=== PATIENT | female | born 1990 | race Caucasian/White ===

== ENCOUNTER → 2016-05-31 | Outpatient (REF) | payer OTHER | LOC: M LAB REF 11:53 | PROVIDERS: ATTEND Physician Assistant | DX: N89.8 Other specified noninflammatory disorders of vagina (principal) ==

== ENCOUNTER → 2016-09-08 | Outpatient (REF) | payer MEDICAID ==
[2016-09-09 11:52] LABS: FOLATE 9.5 NG/ML (>5.4); VITAMIN B12 LEVEL 380 PG/ML (247-911)
[2016-09-09 11:55] LABS: DIFF SLIDE NUMBER 314; MEAN CORPUSCULAR HEMOGLOBIN 27.6 pg (27.0-33.0); MEAN CORPUSCULAR HGB CONC 32.7 g/dl (32.0-36.5); MEAN CORPUSCULAR VOLUME 84.3 fl (80.0-96.0); PLATELET COUNT, AUTOMATED 238 k/mm3 (150-450); RED CELL DISTRIBUTION WIDTH 13.1 % (11.5-14.5); WHITE BLOOD COUNT 7.8 K/mm3 (4.0-10.0)
[2016-09-09 11:57] LABS: ALBUMIN 3.8 GM/DL (3.2-5.2); ALBUMIN/GLOBULIN RATIO 1.36 (1.00-1.93); ALKALINE PHOSPHATASE 64 U/L (45-117); ALT/SGPT 28 U/L (12-78); ANION GAP 6 MEQ/L (8-16); AST/SGOT 24 U/L (15-37); BILIRUBIN,TOTAL 0.3 MG/DL (0.2-1.0); BLOOD UREA NITROGEN 13 MG/DL (7-18); CALCIUM LEVEL 8.7 MG/DL (8.5-10.1); CARBON DIOXIDE LEVEL 28 MEQ/L (21-32); CHLORIDE LEVEL 108 MEQ/L (98-107); CHOLESTEROL LEVEL 178 MG/DL (<200); CREATININE FOR GFR 0.73 MG/DL (0.55-1.02); GLOMERULAR FILTRATION RATE > 60.0 (>60); GLUCOSE, FASTING 90 MG/DL (70-105); POTASSIUM SERUM 4.6 MEQ/L (3.5-5.1); SODIUM LEVEL 142 MEQ/L (136-145); TOTAL PROTEIN 6.6 GM/DL (6.4-8.2); TRIGLYCERIDES LEVEL 115 MG/DL (<150)
[2016-09-09 12:23] LABS: BASOPHILS 2 % (0-4); EOSINOPHILS 2 % (0-5)
== END ==
LOC: M SFHCCLAY 14:36
PROVIDERS: ATTEND Family Medicine
DX: Z98.84 Bariatric surgery status (principal); E78.2 Mixed hyperlipidemia; E55.9 Vitamin D deficiency, unspecified

== ENCOUNTER → 2016-10-20 | Outpatient (REF) | payer MEDICAID ==
[2016-10-20 18:37] LABS: MEAN CORPUSCULAR HEMOGLOBIN 27.8 pg (27.0-33.0); MEAN CORPUSCULAR HGB CONC 32.7 g/dl (32.0-36.5); MEAN CORPUSCULAR VOLUME 85.1 fl (80.0-96.0); RED CELL DISTRIBUTION WIDTH 13.1 % (11.5-14.5); WHITE BLOOD COUNT 8.2 K/mm3 (4.0-10.0)
[2016-10-20 19:23] LABS: FOLATE > 24.0 NG/ML (>5.4); VITAMIN B12 LEVEL 301 PG/ML (247-911)
[2016-10-20 19:31] LABS: CALCIUM LEVEL 8.8 MG/DL (8.5-10.1); HCG, SERUM QUANTITATIVE 6336 MIU/ML
== END ==
LOC: M LAB REF 16:47
PROVIDERS: ATTEND Advanced Practice Midwife
DX: O36.80X0 Pregnancy with inconclusive fetal viability, not applicable or unspecified (principal); O99.840 Bariatric surgery status complicating pregnancy, unspecified trimester; Z3A.00 Weeks of gestation of pregnancy not specified

== ENCOUNTER → 2017-03-30 | Outpatient (CLI) | payer MEDICAID ==
[2017-03-30 12:37] LABS: MEAN CORPUSCULAR HEMOGLOBIN 28.7 pg (27.0-33.0); MEAN CORPUSCULAR HGB CONC 33.1 g/dl (32.0-36.5); MEAN CORPUSCULAR VOLUME 86.6 fl (80.0-96.0); PLATELET COUNT, AUTOMATED 271 10^3/uL (150-450); RED CELL DISTRIBUTION WIDTH 13.1 % (11.5-14.5); WHITE BLOOD COUNT 10.3 10^3/uL (4.0-10.0)
== END ==
LOC: M LAB 10:57
PROVIDERS: ATTEND Advanced Practice Midwife
DX: Z34.82 Encounter for supervision of other normal pregnancy, second trimester (principal)

== ENCOUNTER → 2017-04-18 | Outpatient (REF) | payer MEDICAID ==
[2017-04-18 14:08] LABS: FOLATE 16.9 NG/ML
[2017-04-18 14:22] LABS: CALCIUM LEVEL 8.6 MG/DL (8.5-10.1)
== END ==
LOC: M LAB REF 13:18
PROVIDERS: ATTEND Advanced Practice Midwife
DX: O99.843 Bariatric surgery status complicating pregnancy, third trimester (principal); Z3A.00 Weeks of gestation of pregnancy not specified

== ENCOUNTER → 2017-05-16 | Outpatient (REF) | payer MEDICAID | LOC: M LAB REF 13:17 | DX: Z34.83 Encounter for supervision of other normal pregnancy, third trimester (principal) ==

== ENCOUNTER → 2017-06-06 | Outpatient (REF) | payer MEDICAID | LOC: M LAB REF 13:24 | DX: R30.0 Dysuria (principal) ==

== ENCOUNTER 2017-06-19 21:45 | Inpatient (IN) | payer MEDICAID ==
[2017-06-19 22:34] LABS: HEMATOCRIT 33.1 % (36.0-47.0); MEAN CORPUSCULAR HEMOGLOBIN 28.1 pg (27.0-33.0); MEAN CORPUSCULAR HGB CONC 33.2 g/dl (32.0-36.5); MEAN CORPUSCULAR VOLUME 84.7 fl (80.0-96.0); PLATELET COUNT, AUTOMATED 233 10^3/uL (150-450); RED BLOOD COUNT 3.91 10^6/uL (4.00-5.40); RED CELL DISTRIBUTION WIDTH 13.5 % (11.5-14.5); WHITE BLOOD COUNT 10.9 10^3/uL (4.0-10.0)
[2017-06-19 22:55] LABS: ALT/SGPT 13 U/L (12-78); AST/SGOT 18 U/L (7-37); BILIRUBIN,TOTAL 0.2 MG/DL (0.2-1.0); CREATININE FOR GFR 0.56 MG/DL (0.55-1.30); GLOMERULAR FILTRATION RATE > 60.0 (>60); LDH LACTATE DEHYDROGENASE 170 U/L (84-246); URIC ACID 4.5 MG/DL (2.6-6.0)
[2017-06-19 23:00] LABS: AMPHETAMINES URINE REFLEX NEGATIVE (NEGATIVE); BARBITURATES URINE REFLEX NEGATIVE (NEGATIVE); BENZODIAZEPINES URINE REFLEX NEGATIVE (NEGATIVE); CANNABINOIDS URINE REFLEX NEGATIVE (NEGATIVE); COCAINE METABOLITE URINE REFLE NEGATIVE (NEGATIVE); METHADONE URINE REFLEX NEGATIVE (NEGATIVE); OPIATES URINE REFLEX NEGATIVE (NEGATIVE); PHENCYCLIDINE URINE REFLEX NEGATIVE (NEGATIVE)
[2017-06-19] MEDS: OXYTOCIN DRIP 30 UNITS in APPROPRIATE DILUENT 1 EA IV (23:24)
[2017-06-19] MEDS: LR 1,000 ML IV (23:24)
[2017-06-20] MEDS ORDERED: FENTANYL 2MCG/ML ROPIVACAINE 0.2% IN 0.9% NACL 200ML IVBAG As Ordered (05:47)
[2017-06-20] MEDS ORDERED: LACTATED RINGER'S 1000 ML IV (07:00)
[2017-06-20] MEDS ORDERED: NALOXONE INJ 0.4 MG/1 ML VIAL (J2310) IV (07:00)
[2017-06-20] MEDS ORDERED: EPIDURAL/PCA KEYS XX (07:00)
[2017-06-20] MEDS ORDERED: diphenhydrAMINE INJ 50MG/ML VIAL (J1200) IV (07:00)
[2017-06-20] MEDS ORDERED: ePHEDrine SULFATE 25 MG/5 ML(5MG/ML) SYRINGE IV (07:00)
[2017-06-20] MEDS ORDERED: REFRIGERATOR IV KEYS XX (07:00)
[2017-06-20] MEDS ORDERED: FENTANYL/ROPIVACAINE/NACL BAG 200 ML EPIDURAL (07:00)
[2017-06-20] MEDS ORDERED: EPIDURAL COMMENT XX (07:00)
[2017-06-20] MEDS ORDERED: ONDANSETRON 4MG/2ML VIAL (J2405) IV (07:00)
[2017-06-20] MEDS: PRENATAL VITAMINS CHEWABLE TABLET PO (09:00)
[2017-06-20] MEDS: LACTATED RINGER'S 1000 ML IV (10:58)
[2017-06-20] MEDS: LR 1,000 ML IV (10:59)
[2017-06-20] MEDS: OXYTOCIN DRIP 30 UNITS in APPROPRIATE DILUENT 1 EA IV (14:22)
[2017-06-20] MEDS ORDERED: ANUSOL HC CREAM 30GM TOP (14:30)
[2017-06-20] MEDS ORDERED: METHYLERGONOVINE MALEATE 0.2 MG TAB PO (14:30)
[2017-06-20] MEDS ORDERED: DIBUCAINE 1% OINTMENT 30GM TOP (14:30)
[2017-06-20] MEDS ORDERED: DOCUSATE SODIUM 100 MG CAP PO (14:30)
[2017-06-20] MEDS: ACETAMINOPHEN 500 MG TAB PO (16:37)
[2017-06-20] MEDS: METHYLERGONOVINE MALEATE 0.2 MG/ML VIAL (J2210) IM (18:01)
[2017-06-20] MEDS: OXYTOCIN INJ 10 UNITS/ML VIAL (J2590) IM (18:02)
[2017-06-20] MEDS: MEASLES,MUMPS,RUBELLA VACCINE INJ (MMR-II) (90707) SC (18:03)
[2017-06-20] MEDS: RHOGAM 300 MCG (1500 IU) INJ (J2790) IM (18:03)
[2017-06-20] MEDS: IBUPROFEN 800 MG TAB PO (20:59)
[2017-06-21] MEDS: ACETAMINOPHEN 500 MG TAB PO ×2 (05:37→14:14)
[2017-06-21] MEDS: PRENATAL VITAMINS CHEWABLE TABLET PO (09:00)
[2017-06-21] MEDS: IBUPROFEN 800 MG TAB PO (09:54)
[2017-06-22] MEDS: IBUPROFEN 800 MG TAB PO (04:47)
[2017-06-22] MEDS: PRENATAL VITAMINS CHEWABLE TABLET PO (08:16)
== END 2017-06-22 15:29 | disposition home or self-care (01) | DRG 560 ==
LOC: M LDI 21:45 → M OBS 06-20 15:54
PROVIDERS: Advanced Practice Midwife
PROC: 3E033VJ Introduction of Other Hormone into Peripheral Vein, Percutaneous Approach (ICD-10-PCS; principal; 2017-06-19)
PROC: 10907ZC Drainage of Amniotic Fluid, Therapeutic from Products of Conception, Via Natural or Artificial Opening (ICD-10-PCS; 2017-06-20)
PROC: 10E0XZZ Delivery of Products of Conception, External Approach (ICD-10-PCS; 2017-06-20)
PROC: 0HQ9XZZ Repair Perineum Skin, External Approach (ICD-10-PCS; 2017-06-20)
DX: O48.0 Post-term pregnancy (principal); J45.909 Unspecified asthma, uncomplicated; Z37.0 Single live birth; Z3A.40 40 weeks gestation of pregnancy; Z98.84 Bariatric surgery status; Z79.899 Other long term (current) drug therapy; O70.0 First degree perineal laceration during delivery; O99.52 Diseases of the respiratory system complicating childbirth

== ENCOUNTER 2018-05-24 07:43 | Emergency (ER) | payer MEDICAID ==
[~2018-05-24] VITALS: Ht 180.3 cm; Wt 118.2 kg
[~2018-05-24 07:43] MED LIST: ADVA115A INH; IBUP-1114 PO; PRENTAB55 PO; PROAAER10 INH
[2018-05-24 08:11] LABS: BASO % 0.1 % (0.0-1.0); HEMATOCRIT 42.7 % (36.0-47.0); HEMOGLOBIN 13.7 g/dl (12.0-15.5); LYMPH # 1.4 10^3/uL (1.5-6.5); LYMPH % 9.3 % (24.0-44.0); MEAN CORPUSCULAR HEMOGLOBIN 26.4 pg (27.0-33.0); MEAN CORPUSCULAR HGB CONC 32.1 g/dl (32.0-36.5); MEAN CORPUSCULAR VOLUME 82.3 fl (80.0-96.0); MONO # 0.5 10^3/uL (0.0-0.8); MONO % 3.3 % (0.0-5.0); NEUTROPHILS # 12.8 10^3/uL (1.8-7.7); NEUTROPHILS % 86.9 % (36.0-66.0); PLATELET COUNT, AUTOMATED 398 10^3/uL (150-450); RED BLOOD COUNT 5.19 10^6/uL (4.00-5.40); WHITE BLOOD COUNT 14.8 10^3/uL (4.0-10.0)
[2018-05-24 08:44] LABS: ALBUMIN 4.4 GM/DL (3.2-5.2); ALT/SGPT 63 U/L (12-78); BILIRUBIN,DIRECT < 0.1 MG/DL (0.0-0.2); BILIRUBIN,TOTAL 0.4 MG/DL (0.2-1.0); BLOOD UREA NITROGEN 14 MG/DL (7-18); CALCIUM LEVEL 9.1 MG/DL (8.5-10.1); CARBON DIOXIDE LEVEL 23 MEQ/L (21-32); CHLORIDE LEVEL 102 MEQ/L (98-107); CREATININE FOR GFR 0.77 MG/DL (0.55-1.30); GLOMERULAR FILTRATION RATE > 60.0 (>60); GLUCOSE, FASTING 148 MG/DL (70-100); LIPASE 125 U/L (73-393); POTASSIUM SERUM 4.6 MEQ/L (3.5-5.1); SODIUM LEVEL 137 MEQ/L (136-145); TOTAL PROTEIN 7.9 GM/DL (6.4-8.2)
[2018-05-24 08:45] LABS: HCG, SERUM QUALITATIVE NEGATIVE (NEGATIVE)
--- NOTE | 2018-05-24 09:10 | REP ---
GALLBLADDER ULTRASOUND: HISTORY: Right upper quadrant pain. COMPARISON: 03/22/2008. Multiple calcifications are present in the gallbladder consistent with cholelithiasis. Gravel is also present. The gallbladder is distended consistent with hydrops. The gallbladder wall is thickened measuring 5.2 mm. The common bile duct measures 3.8 mm. There is fatty infiltration of the liver. The pancreas is not seen due to overlying bowel gas. The right kidney measures 5.7 cm in transverse by 4.7 cm in AP by 12.4 cm in cephalocaudal dimensions. There is no hydronephrosis or mass. IMPRESSION: 1. Cholelithiasis. There is hydrops and thickening of the gallbladder wall. 2. Fatty infiltration of the liver. Electronically Signed by Pankaj Blanco MD 05/24/2018 09:22 A
[2018-05-24] MEDS ORDERED: MORPHINE 2 MG/ML 1ML SYRINGE (J2270) IV ONE (09:30)
[2018-05-24] MEDS ORDERED: NS 1,000 ML IV ONE (09:30)
[2018-05-24] MEDS ORDERED: NORCO, ANEXSIA 5/325MG TABLET (HYDROcodone/ACETAMINOPHEN) PO ONE (11:00)
[2018-05-24] MEDS ORDERED: AMOX875T2 PO (11:44)
[2018-05-24] MEDS ORDERED: NORCOTAB PO (11:44)
[2018-05-24] MEDS ORDERED: ONDA4TAB6 PO (11:44)
[2018-05-24 12:11] VITALS: BP 137/63
== END 2018-05-24 12:04 | disposition home or self-care (01) ==
LOC: M ED 07:43
DX: K80.70 Calculus of gallbladder and bile duct without cholecystitis without obstruction (principal); I10 Essential (primary) hypertension; E78.5 Hyperlipidemia, unspecified; Z98.84 Bariatric surgery status
CPT/HCPCS: 76705; 80048; 80076; 81001; 83690; 84703; 85025; 87086; 96361; 96374; 99283; J2270

== ENCOUNTER 2018-05-26 12:31 | Day surgery (SDC) | payer MEDICAID ==
[~2018-05-26] VITALS: Ht 180.3 cm; Wt 115.4 kg
[~2018-05-26 12:31] MED LIST changes: +AMOX875T2 PO; +NORCOTAB PO; +ONDA4TAB6 PO
[2018-05-26] MEDS ORDERED: NS 1,000 ML IV SCH (12:49)
[2018-05-26] MEDS ORDERED: KETOROLAC 30 MG/ML VIAL (J1885) IV ONE (13:00)
[2018-05-26] MEDS ORDERED: ONDANSETRON 4MG/2ML VIAL (J2405) IV ONE (13:00)
[2018-05-26 13:18] LABS: BASO % 0.3 % (0.0-1.0); EOS # 0.2 10^3/uL (0.0-0.50); EOS % 1.1 % (0.0-3.0); HEMATOCRIT 41.3 % (36.0-47.0); HEMOGLOBIN 13.3 g/dl (12.0-15.5); LYMPH # 1.7 10^3/uL (1.5-6.5); LYMPH % 12.8 % (24.0-44.0); MEAN CORPUSCULAR HEMOGLOBIN 26.5 pg (27.0-33.0); MEAN CORPUSCULAR HGB CONC 32.2 g/dl (32.0-36.5); MEAN CORPUSCULAR VOLUME 82.3 fl (80.0-96.0); MONO # 1.3 10^3/uL (0.0-0.8); MONO % 9.9 % (0.0-5.0); NEUTROPHILS # 10.1 10^3/uL (1.8-7.7); NEUTROPHILS % 75.5 % (36.0-66.0); PLATELET COUNT, AUTOMATED 304 10^3/uL (150-450); RED BLOOD COUNT 5.02 10^6/uL (4.00-5.40); WHITE BLOOD COUNT 13.3 10^3/uL (4.0-10.0)
[2018-05-26 13:43] LABS: ALBUMIN 3.8 GM/DL (3.2-5.2); ALT/SGPT 33 U/L (12-78); BILIRUBIN,DIRECT 0.1 MG/DL (0.0-0.2); BILIRUBIN,TOTAL 0.4 MG/DL (0.2-1.0); BLOOD UREA NITROGEN 7 MG/DL (7-18); CALCIUM LEVEL 8.9 MG/DL (8.5-10.1); CARBON DIOXIDE LEVEL 26 MEQ/L (21-32); CHLORIDE LEVEL 102 MEQ/L (98-107); GLOMERULAR FILTRATION RATE > 60.0 (>60); GLUCOSE, FASTING 105 MG/DL (70-100); LIPASE 109 U/L (73-393); POTASSIUM SERUM 4.2 MEQ/L (3.5-5.1); SODIUM LEVEL 138 MEQ/L (136-145); TOTAL PROTEIN 7.1 GM/DL (6.4-8.2)
[2018-05-26] MEDS ORDERED: MORPHINE 4 MG/ML 1ML VIAL/SYRINGE (J2270) IV PRN ×3 (13:45→16:00)
[2018-05-26] MEDS ORDERED: ONDA4TAB6 PO (15:24)
[2018-05-26] MEDS ORDERED: AMOX875T2 PO (15:24)
[2018-05-26] MEDS ORDERED: NORC1TAB4 PO (15:24)
[2018-05-26] MEDS ORDERED: ONDANSETRON 4MG/2ML VIAL (J2405) IV PRN ×2 (16:00→19:00)
[2018-05-26] MEDS ORDERED: BUPIVACAINE HCL 0.25% 30 ML VIAL As Ordered ONE (16:13)
[2018-05-26] MEDS ORDERED: PIPERACILLIN/TAZOBACTAM SOD 3.375 GM in D5W MINI-BAG PLUS 50 ML IV ONE (16:15)
[2018-05-26] MEDS ORDERED: LIDOCAINE 2% INJ 100 MG/5 ML SDV (FOR ANES.) As Ordered ONE (16:30)
[2018-05-26] MEDS ORDERED: PROPOFOL 200 MG/20 ML VIAL As Ordered ONE (16:30)
[2018-05-26] MEDS ORDERED: ROCURONIUM BROMIDE 50 MG/5 ML VIAL As Ordered ONE ×2 (16:32→18:05)
[2018-05-26] MEDS ORDERED: fentaNYL 250 MCG/5 ML INJECTION (J3010) As Ordered ONE (16:33)
[2018-05-26] MEDS ORDERED: MIDAZOLAM INJ 2 MG/2 ML VIAL (J2250) As Ordered ONE (16:33)
[2018-05-26] MEDS ORDERED: dexameTHASONE 4 MG/ML 1ML VIAL (J1100) As Ordered ONE (17:00)
[2018-05-26] MEDS ORDERED: SUCCINYLCHOLINE 100 MG/5 ML SYRINGE (J0330) As Ordered ONE (17:01)
[2018-05-26] MEDS ORDERED: HYDROmorphone HCL 2 MG/ML 1ML VIAL (J1170) As Ordered ONE (17:26)
[2018-05-26] MEDS ORDERED: ESMOLOL INJ 100MG/10ML VIAL As Ordered ONE (17:48)
[2018-05-26] MEDS ORDERED: GLYCOPYRROLATE INJ 0.2 MG/ML 2 ML VIAL As Ordered ONE (17:53)
[2018-05-26] MEDS ORDERED: NEOSTIGMINE 10 MG/10 ML VIAL (J2710) As Ordered ONE (17:53)
[2018-05-26] MEDS ORDERED: KETOROLAC 60 MG/2 ML VIAL (J1885) As Ordered ONE (18:11)
[2018-05-26] MEDS ORDERED: ONDANSETRON 4MG/2ML VIAL (J2405) As Ordered ONE (18:11)
[2018-05-26] MEDS ORDERED: NORCO, ANEXSIA 5/325MG TABLET (HYDROcodone/ACETAMINOPHEN) PO PRN ×2 (19:00→19:15)
[2018-05-26] MEDS ORDERED: LR 1,000 ML IV SCH (19:00)
[2018-05-26] MEDS ORDERED: ALBUTEROL 90 MCG/ACT 8GM HFA INHALER INH PRN (19:15)
[2018-05-26] MEDS ORDERED: ACETAMINOPHEN TAB 650MG DOSE (2X325MG) PO PRN (19:15)
[2018-05-26] MEDS: fentaNYL 100 MCG/2 ML INJECTION (J3010) IV PRN ×2 (19:52→20:00)
[2018-05-26] MEDS: LR 1,000 ML IV SCH (20:25)
[2018-05-26 20:30] VITALS: BP 106/52
[2018-05-26 21:00] VITALS: BP 109/58
[2018-05-26 21:30] VITALS: BP 103/56
[2018-05-26 22:30] VITALS: BP 102/54
[2018-05-26 23:30] VITALS: BP 112/57
[2018-05-27 00:30] VITALS: BP 115/62
[2018-05-27] MEDS: ADVAIR HFA 115/21MCG INHALER INH SCH ×2 (00:38→07:15)
[2018-05-27] MEDS: LR 1,000 ML IV SCH (01:00)
[2018-05-27] MEDS: KETOROLAC 30 MG/ML VIAL (J1885) IV PRN ×2 (03:48→11:41)
[2018-05-27 04:00] VITALS: BP 117/56
--- NOTE | 2018-05-27 07:05 | RO ---
DATE OF PROCEDURE: 05/26/2018 PREOPERATIVE DIAGNOSES: Cholelithiasis and acute cholecystitis. POSTOPERATIVE DIAGNOSES: Cholelithiasis and acute cholecystitis. PROCEDURE PERFORMED: Laparoscopic cholecystectomy. SURGEON: Dr. Niall Givens ANESTHESIA: General. INDICATIONS FOR PROCEDURE: The patient is a 27-year-old woman who has had several months of intermittent episodes of biliary colic. She developed pain on May 23 which has persisted. In the emergency department on the , she was found to have tenderness in the right subcostal area and an ultrasound showed a markedly distended and thickened gallbladder consistent with acute cholecystitis. She is now for a laparoscopic cholecystectomy. OPERATIVE PROCEDURE: The patient was placed under general endotracheal anesthesia. The patient's abdomen was prepped and draped in a sterile fashion. 0.25% Marcaine was infiltrated at the trocar sites as needed. A short incision was made in the left upper quadrant and after positive hanging drop test, insufflation was begun but the pressures rapidly qamar and the Veress needle was removed. I attempted to reinsert this but again had high insufflation pressures. I changed to a supraumbilical site. Local anesthesia was achieved and a short longitudinal incision was made. The Veress needle was inserted without difficulty and a positive hanging drop test was achieved. The abdomen was insufflated with carbon dioxide gas with low insufflation pressures this time. A 5-mm port was placed over a 5 mm scope and advanced through the abdominal wall without difficulty. Initial examination showed a normal-appearing liver. There was a markedly distended, inflamed and edematous gallbladder identified in the subhepatic space. Inspection in the left upper quadrant showed no evidence of injury from the Veress needle insertion and I could not even confirm that there was penetration of the peritoneum. A 5 mm port was placed through this left upper quadrant skin incision. Two 5 mm ports were placed in the right upper quadrant. The 5 mm supraumbilical port was converted to an 11 mm port. The patient was tilted to a slight reverse Trendelenburg position and rolled slightly to the left. The gallbladder was aspirated of a large amount of dark bile using an aspirating needle. The gallbladder decompressed nicely but the wall was still quite thickened and edematous. The gallbladder was grasped and elevated. There were some adhesions at the neck of the gallbladder that appeared to extend to the duodenum. These were likely secondary to her prior gastric bypass procedure. These adhesions were lysed cautiously to avoid any injury of the duodenum. As the gallbladder was freed, it could be further elevated. The peritoneum was then opened around the gallbladder neck. Two branches were identified and these were both clearly dissected free and doubly clipped with hemoclips and divided. The cystic duct was then clearly identified as well and was doubly clipped with hemoclips and divided. The gallbladder was then dissected free from the gallbladder bed using cautery dissection. This was a slow process given the marked edema of the gallbladder wall. Near the fundus, the gallbladder was perforated but as it had been drained, there was little to no spillage of any bile. A few small angular stones were identified but these were not released into the abdomen. The gallbladder was completely removed from the gallbladder bed and then placed in the Endopouch. The right upper quadrant was then copiously irrigated. Inspection revealed no evidence of bleeding or bile leak. The patient was returned to a flat position. The abdomen was deflated and the trocars were all removed. The gallbladder was recovered through the supraumbilical site. Because of the thickness of the gallbladder, it was necessary to extend the fascial incision and the skin incision to approximately 3 cm. The gallbladder was sent for permanent pathology. The fascia was closed with interrupted simple sutures of #1-0 Vicryl. The subcutaneous tissues at the supraumbilical site were closed with some #2-0 Vicryl and the skin incisions were then all closed with buried #5-0 Vicryl and Steri-Strips. Light dressings were applied. The patient tolerated the procedure well without apparent complication. She was awakened in the operating room, extubated and moved to the recovery room in stable condition.
[2018-05-27 07:58] VITALS: BP 128/64
[2018-05-27 08:08] LABS: BASO % 0.2 % (0.0-1.0); EOS % 0.2 % (0.0-3.0); HEMATOCRIT 36.9 % (36.0-47.0); HEMOGLOBIN 11.7 g/dl (12.0-15.5); LYMPH # 1.6 10^3/uL (1.5-6.5); LYMPH % 14.1 % (24.0-44.0); MEAN CORPUSCULAR HEMOGLOBIN 26.2 pg (27.0-33.0); MEAN CORPUSCULAR HGB CONC 31.7 g/dl (32.0-36.5); MEAN CORPUSCULAR VOLUME 82.6 fl (80.0-96.0); MONO # 0.9 10^3/uL (0.0-0.8); MONO % 7.8 % (0.0-5.0); NEUTROPHILS % 77.4 % (36.0-66.0); PLATELET COUNT, AUTOMATED 337 10^3/uL (150-450); RED BLOOD COUNT 4.47 10^6/uL (4.00-5.40); WHITE BLOOD COUNT 11.6 10^3/uL (4.0-10.0)
[2018-05-27 08:41] LABS: ALBUMIN 3.2 GM/DL (3.2-5.2); ALT/SGPT 45 U/L (12-78); BILIRUBIN,TOTAL 0.3 MG/DL (0.2-1.0); BLOOD UREA NITROGEN 10 MG/DL (7-18); CALCIUM LEVEL 8.4 MG/DL (8.5-10.1); CARBON DIOXIDE LEVEL 25 MEQ/L (21-32); CHLORIDE LEVEL 105 MEQ/L (98-107); CREATININE FOR GFR 0.64 MG/DL (0.55-1.30); GLOMERULAR FILTRATION RATE > 60.0 (>60); GLUCOSE, FASTING 104 MG/DL (70-100); POTASSIUM SERUM 4.3 MEQ/L (3.5-5.1); SODIUM LEVEL 138 MEQ/L (136-145); TOTAL PROTEIN 6.5 GM/DL (6.4-8.2)
[2018-05-27] MEDS ORDERED: NORCOTAB PO (12:14)
--- NOTE | 2018-05-27 12:29 | IPN ---
DATE: 05/27/2018 HISTORY: The patient is now postop day #1 from a laparoscopic cholecystectomy for cholelithiasis with acute cholecystitis. She has done well overnight since her surgery. She has been tolerating a diet well, has had a bowel movement and has been up ambulating. Vital signs: Show that she has been afebrile with a pulse in the 60s and 70s and good blood pressure. Intake and output shows that she has had 400 mL of urine recorded today, though she has several voids and two bowel movements noted as well. She is taking a diet well. PHYSICAL EXAMINATION: The patient is sitting up in the bed looking mildly uncomfortable. She is alert and oriented. Heart and lung exams are unremarkable. The abdomen is mildly obese but soft and without any undue tenderness. Her dressings are dry. Laboratory studies this morning show white count of 12 which is down slightly from yesterday. Hemoglobin is 12 with a hematocrit of 37 and the platelet count is 337,000. Chemistry profile shows normal electrolytes, BUN and creatinine. Her liver function tests are all normal. IMPRESSION: The patient is doing very well now one day postop from laparoscopic cholecystectomy for acute cholecystitis. She appears to be ready for discharge. PLAN: She will be discharged home. She was advised to take [id number] medications as necessary for mild pain. I will provide her a prescription for Sidney to take on an as-needed basis for more severe discomfort. She can take a diet as tolerated. She can start showering 24 hours after the surgery. She has requested a note to be out of class this week if necessary and I will provide this. I have asked her to follow up with me in the office in 10 days or to call sooner for any problems.
--- NOTE | 2018-05-28 07:39 | REP ---
Clinical: Acute abdominal pain and biliary colic. Comparison: 05/24/2018. Technique: Martin scale ultrasound using curved array transducer. Findings: The gallbladder is again distended and demonstrates gallbladder wall thickening with mild striation and small amount of pericholecystic fluid as well as multiple small gallstones. The common bile duct is dilated to 8.2 mm. Findings are compatible with acute cholecystitis and require correlation. Liver demonstrates increased echogenicity suggesting fatty infiltration without focal hepatic lesion identified. Visualized portions of the pancreas are unremarkable but limited due to interposed bowel gas. The right kidney is without hydronephrosis and measures 12.5 x 5.6 x 4.3 cm. No obvious ascites in the right upper quadrant. Impression: Sonographic findings are consistent with acute cholecystitis and correlation is recommended. Electronically Signed by Armando Yip MD 05/26/2018 02:25 P
== END 2018-05-27 13:10 | disposition home or self-care (01) ==
LOC: M ED 12:31 → M SDC 15:58 → M PED 20:25 → M SDC 05-27 13:10
PROVIDERS: ATTEND Surgery
DX: K80.18 Calculus of gallbladder with other cholecystitis without obstruction (principal); J45.909 Unspecified asthma, uncomplicated; Z79.51 Long term (current) use of inhaled steroids; Z98.84 Bariatric surgery status; Z79.899 Other long term (current) drug therapy
CPT/HCPCS: 36415; 47562; 76705; 80048; 80053; 80076; 83690; 85025; 88304; 94640; 96374; 96375; 96376; 99284; J0330; J1100; J1170; J1885; J2250; J2270; J2405; J2543; J2710; J3010

== ENCOUNTER 2018-08-20 11:24 | Emergency (ER) | payer MEDICAID, OTHER ==
[~2018-08-20] VITALS: Ht 180.3 cm; Wt 118.2 kg
[~2018-08-20 11:24] MED LIST changes: +HYDR-3715 PO; +NORC1TAB7 PO; -NORCOTAB PO
[2018-08-20 11:25] VITALS: BP 126/71
[2018-08-20] MEDS ORDERED: BAYE500T2 PO (11:31)
[2018-08-20] MEDS ORDERED: KETOROLAC 60 MG/2 ML VIAL (J1885) IM ONE (12:30)
[2018-08-20] MEDS ORDERED: ACETAMINOPHEN 325 MG TAB PO ONE (12:30)
[2018-08-20] MEDS ORDERED: ROBA500T PO (12:32)
[2018-08-21] MEDS ORDERED: MEDR4PAK PO (09:17)
[2018-08-21] MEDS ORDERED: ULTR50TA8 PO (09:17)
== END 2018-08-20 12:41 | disposition home or self-care (01) ==
LOC: M ED 11:24
DX: M54.5 Low back pain (principal); J45.909 Unspecified asthma, uncomplicated; Z98.84 Bariatric surgery status
CPT/HCPCS: 96372; 99283; J1885

== ENCOUNTER 2018-08-21 07:28 | Emergency (ER) | payer OTHER ==
[~2018-08-21] VITALS: Ht 180.3 cm; Wt 118.2 kg
[~2018-08-21 07:28] MED LIST changes: +BAYE500T2 PO; +ROBA500T PO
[2018-08-21] MEDS ORDERED: KETOROLAC 30 MG/ML VIAL (J1885) IV ONE (08:15)
[2018-08-21] MEDS ORDERED: ULTR50TA8 PO (09:17)
[2018-08-21] MEDS ORDERED: MEDR4PAK PO (09:17)
[2018-08-21 09:24] VITALS: BP 115/63
--- NOTE | 2018-08-21 09:26 | REP ---
CT LUMBAR SPINE WITHOUT CONTRAST: HISTORY: Back pain. There is no disc bulge or herniation at the L1-2 and L2-3 levels. The nerves exit the neural foramina without compression. A diffuse disc bulge is present at the L3-4 level. There is minimal compression of the thecal sac. The L3 nerves exit the neural foramina without compression. A diffuse disc bugle and small central disc protrusion are present at the L4-5 level. There is minimal compression of the thecal sac. The L4 nerves exit the neural foramina without compression. A diffuse disc bulge and small left paracentral disc protrusion are present at the L5-S1 level. The disc protrusion abuts the left S1 nerve. There is no thecal sac compression. The L5 nerves exit the neural foramina without compression. The L3-4 through L5-S1 intervertebral discs are decreased in height consistent with disc degeneration. There is no subluxation. IMPRESSION: 1. Diffuse disc bugle at the L3-4 level with minimal thecal sac compression. 2. Diffuse disc bulge and small central disc protrusion at the L4-5 level with minimal thecal sac compression. 3. Diffuse disc bugle and small left paracentral disc protrusion at the L5-S1 level. The disc protrusion abuts the left S1 nerve. Electronically Signed by Pankaj Blanco MD 08/21/2018 09:34 A
--- NOTE | 2018-08-21 11:50 | ED PDOC ---
Post-Departure Follow-Up ling coe faxed formal report of ct ls spine fo rfu mlg Jaclyn Simon MD Aug 21, 2018 11:50
== END 2018-08-21 09:25 | disposition home or self-care (01) ==
LOC: M ED 07:28
DX: M51.26 Other intervertebral disc displacement, lumbar region (principal); M51.36 Other intervertebral disc degeneration, lumbar region; Z98.84 Bariatric surgery status; Z79.3 Long term (current) use of hormonal contraceptives
CPT/HCPCS: 72131; 96374; 99284; J1885

== ENCOUNTER → 2018-12-13 | Outpatient (REF) | payer OTHER ==
[~2018-12-13] MED LIST changes: +ADVA115A; +DEPO150I12 IM; +MEDR4PAK PO; +TRAM50TA2; +ULTR50TA8 PO
[2018-12-14 08:24] LABS: HERPES ZOSTER, VARICELLA IgG 1183 index (Immune >165); MUMPS VIRUS IgG ANTIBODY <9.0 AU/mL (Immune >10.9); RUBEOLA IgG ANTIBODY 68.8 AU/mL (Immune >29.9)
[2018-12-14 11:36] LABS: RUBELLA IgG QUALITATIVE IMMUNE (IMMUNE)
== END ==
LOC: M SFHCCLAY 08:07
PROVIDERS: ATTEND Family Medicine
DX: Z02.0 Encounter for examination for admission to educational institution (principal)

== ENCOUNTER 2019-01-20 13:00 | Emergency (ER) | payer OTHER ==
[~2019-01-20] VITALS: Ht 180.3 cm; Wt 108.1 kg
[~2019-01-20 13:00] MED LIST changes: -ADVA115A; -DEPO150I12 IM; -TRAM50TA2
[2019-01-20] MEDS ORDERED: ADVA115A (13:05)
[2019-01-20] MEDS ORDERED: TRAM50TA2 (13:05)
[2019-01-20] MEDS ORDERED: DEPO150I12 IM (13:05)
--- NOTE | 2019-01-20 14:13 | REP ---
Right lower extremity Duplex Doppler venous ultrasound: Real time compression and duplex Doppler interrogation of the right lower extremity deep venous system is performed. The right common femoral, superficial femoral and popliteal veins are fully compressible with transducer pressure and demonstrate normal spontaneous and phasic flow, without evidence of deep venous thrombosis. Impression: No evidence of deep venous thrombosis of the right lower extremity femoral popliteal venous system. Electronically Signed by Chun Martin MD 01/20/2019 02:05 P
[2019-01-20 14:45] VITALS: BP 131/79
== END 2019-01-20 14:46 | disposition home or self-care (01) ==
LOC: M ED 13:00
DX: I80.01 Phlebitis and thrombophlebitis of superficial vessels of right lower extremity (principal); M54.16 Radiculopathy, lumbar region; Z98.84 Bariatric surgery status; Z79.51 Long term (current) use of inhaled steroids; Z79.899 Other long term (current) drug therapy

== ENCOUNTER → 2019-06-19 | Outpatient (REF) | payer OTHER ==
[~2019-06-19] MED LIST changes: +ADVA115A; +DEPO150I12 IM; +TRAM50TA2
[2019-06-19 16:39] LABS: HEMATOCRIT 39.9 % (36.0-47.0); HEMOGLOBIN 12.5 g/dl (12.0-15.5); MEAN CORPUSCULAR HEMOGLOBIN 25.9 pg (27.0-33.0); MEAN CORPUSCULAR HGB CONC 31.3 g/dl (32.0-36.5); MEAN CORPUSCULAR VOLUME 82.8 fl (80.0-96.0); PLATELET COUNT, AUTOMATED 305 10^3/uL (150-450); RED BLOOD COUNT 4.82 10^6/uL (4.00-5.40); WHITE BLOOD COUNT 6.8 10^3/uL (4.0-10.0)
[2019-06-19 16:51] LABS: ALBUMIN 4.3 GM/DL (3.2-5.2); ALT/SGPT 15 U/L (12-78); BILIRUBIN,TOTAL 0.4 MG/DL (0.2-1.0); BLOOD UREA NITROGEN 17 MG/DL (7-18); CALCIUM LEVEL 9.1 MG/DL (8.5-10.1); CARBON DIOXIDE LEVEL 27 MEQ/L (21-32); CHLORIDE LEVEL 111 MEQ/L (98-107); CREATININE FOR GFR 0.78 MG/DL (0.55-1.30); GLOMERULAR FILTRATION RATE > 60.0 (>60); GLUCOSE, FASTING 94 MG/DL (70-100); IRON (FE) 103 UG/DL (50-170); PERCENT SATURATION 21.5 % (13.2-45.0); POTASSIUM SERUM 4.3 MEQ/L (3.5-5.1); SODIUM LEVEL 141 MEQ/L (136-145); TOTAL IRON BINDING CAPACITY 478 UG/DL (250-450); TOTAL PROTEIN 7.3 GM/DL (6.4-8.2)
[2019-06-19 16:52] LABS: TOTAL 25(OH) VITAMIN D 24.9 NG/ML (30.0-100.0); VITAMIN B12 LEVEL 394 PG/ML (247-911)
[2019-06-19 21:23] LABS: HEMATOCRIT 39.9 % (36.0-47.0)
== END ==
LOC: M SFHCCLAY 13:06
PROVIDERS: ATTEND Family Medicine
DX: Z98.84 Bariatric surgery status (principal)

== ENCOUNTER → 2019-10-09 | Outpatient (CLI) | payer OTHER ==
--- NOTE | 2019-10-10 00:43 | ECWPNPC ---
PATIENT NAME: NABEEL DELUNA : 1990 GENDER: FEMALE VISIT DATE: 10/09/2019 DISCHARGE DATE: 10/09/19 1017 VISIT LOCKED DATE TIME: PHYSICIAN: CHERISE MUSTAFA RESOURCE: CHERISE MUSTAFA REASON FOR APPOINTMENT 1. LOW BACK HISTORY OF PRESENT ILLNESS GENERAL: 29-YEAR-OLD FEMALE WITH LONG HISTORY OF CHRONIC LOW BACK PAIN. 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 CHIEF AREA OF PAIN IS RIGHT LOW BACK THAT RADIATES INTO RIGHT LEG. DESCRIBES CONSTANT NUMBNESS IN HER RIGHT LEG. HAS BEEN SEEN BY [facility] AND HAS HAD PT IN THE PAST 2 YEARS. PAIN IS AGGRAVATED BY LIFTING, BENDING OR PROLONGED WALKING. PAIN IS RELIEVED SOMEWHAT WITH TRAMADOL, HEAT AND STRETCHING. HAD CT SCAN OF THE LUMBAR SPINE WHICH IS REVIEWED TODAY. SHOWING DISC PATHOLOGY. DISCUSSED TREATMENT PLAN. - - -. FALL RISK SCREENING: SCREENING :NO FALLS REPORTED IN THE LAST YEAR PAIN SCREENING: PATIENT HAS A COMPLAINT OF ACUTE OR CHRONIC PAIN :YES 10/09/19 INTENSITY OF PAIN (SCALE OF 1 TO 10):4 WHAT DOES YOUR PAIN FEEL LIKE:ACHING, INTERMITTENT, SHOOTING PAIN IS INCREASED BY: LIFTING, BENDING OVER, WALKING PAIN IS DECREASED BY: REST, HEAT NURSING NOTE: - - -. PAIN CENTER INTAKE QUESTIONS: DO YOU HAVE A HISTORY OF MRSA? :NO DO YOU TAKE A BLOOD THINNERS? :NO DO YOU HAVE ANY BLEEDING DISORDERS? :NO ANY NEW NUMBNESS OR WEAKNESS IN YOUR LEGS OR ARMS? :YES RIGHT LEG NUMBNESS ANY PACEMAKER,DEFIBRILLATOR, OR DORSAL COLUMN STIMULATOR? :NO DO YOU HAVE ANY RASHES OR OPEN SORES? :NO ARE YOU ALLERGIC TO IV DYE? :NO ARE YOU DIABETIC? :NO ANY NEW PROBLEMS WITH YOUR MEDICATIONS? :NO HAVE YOU RECEIVED A VACCINE IN THE PAST 30 DAYS? :NO DO YOU PLAN TO RECEIVE A VACCINE IN THE NEXT 21 DAYS? :NO DO YOU NEED ANY PRESCRIPTION? :YES TRAMADOL DO YOU TAKE ANY IMMUNOSUPPRESSIVE MEDICATIONS? :NO CURRENT MEDICATIONS TAKING TRAMADOL HCL 50 MG TABLET 1 TABLET NEEDED ORALLY ONCE A DAY TAKING TIZANIDINE HCL 4 MG TABLET 1 TABLET NEEDED ORALLY THREE TIMES A DAY TAKING NAPROXEN 500 MG TABLET 1 TABLET WITH FOOD OR MILK NEEDED ORALLY EVERY 12 HRS TAKING ADVAIR HFA 115-21 MCG/ACT AEROSOL 2 PUFFS INHALATION TWICE A DAY TAKING PROAIR HFA 108 (90 BASE) MCG/ACT AEROSOL SOLUTION 1 PUFF NEEDED INHALATION EVERY 4 HRS NOT-TAKING AMOXICILLIN 875 MG TABLET 1 TABLET ORALLY EVERY 12 HRS NOT-TAKING TRAMADOL HCL 50 MG TABLET 1 TABLET NEEDED ORALLY Q6H PRN MEDICATION LIST REVIEWED AND RECONCILED WITH THE PATIENT PAST MEDICAL HISTORY ANXIETY/DEPRESSION ASTHMA ALLERGIC RHINITIS-SEASONAL VITAMIN D DEFICIENCY MORBID OBESITY HYPERLIPIDEMIA ALLERGIES CELEBREX: UPSET STOMACH - SIDE EFFECTS SURGICAL HISTORY TONSILLECTOMY 2007 GASTRIC BYPASS- DR. ELIZABETH 11/2015 CHOLECYSTECTOMY- DR. REY 05/2018 FAMILY HISTORY FATHER: ALIVE MOTHER: ALIVE, DIAGNOSED WITH HYPERTENSION SIBLINGS: ALIVE PATERNAL GRAND FATHER: , LUNG CANCER, THYROID CANCER, OTHER MALIGNANT NEOPLASM OF UNSPECIFIED SITE PATERNAL GRAND MOTHER: , UNSPECIFIED HEART DISEASE MATERNAL GRAND FATHER: , OF GA AT 62 Y/O AND HAD LUNG AND ESOPHAGEAL CANCER - SMOKER, DIABETES, HYPERTENSION, UNSPECIFIED HEART DISEASE, OTHER MALIGNANT NEOPLASM OF UNSPECIFIED SITE PATERNAL AUNT: ALIVE, DIABETES, UNSPECIFIED CEREBRAL ARTERY OCCLUSION WITH CEREBRAL INFARCTION MATERNAL GRAND MOTHER: HYPERTENSION 1 BROTHER(S) . 1 SON(S) - HEALTHY. SOCIAL HISTORY GENERAL: TOBACCO USE ARE YOU A:FORMER SMOKER HOW LONG HAS IT BEEN SINCE YOU LAST SMOKED?1-3 MONTHS LATEX QUESTIONNAIRE LATEX ALLERGY : HAVE YOU EVER DEVELOPED ANY TYPE OF REACTION AFTER HANDLING LATEX PRODUCTS SUCH RUBBER GLOVES, CONDOMS, DIAPHRAGMS, BALLOONS, SOCKS, OR UNDERWEAR?NO LATEX ALLERGY : HAVE YOU EVER DEVELOPED ANY TYPE OF REACTION DURING OR AFTER DENTAL APPOINTMENT, VAGINAL/RECTAL EXAMINATION, SURGICAL PROCEDURE, OR ANY OTHER EXPOSURE?NO LATEX RISK : HAVE YOU EVER HAD ANY DIFFICULTY BREATHING OR HIVES AFTER EATING OR HANDLING ANY FRUITS, OR VEGETABLES; SUCH KIWI, BANANAS, STONE FRUITS, OR CHESTNUTSNO LATEX RISK : DO YOU HAVE A PREVIOUS PERSONAL HISTORY OF MORE THAN NINE SURGERIES, SPINA BIFIDA, OR REPEATED CATHERIZATIONS? NO LATEX RISK : ARE YOU FREQUENTLY EXPOSED TO LATEX PRODUCTS IN YOUR OCCUPATION?NO DATE ASKED : 10/09/2019 BMI CARE GOAL FOLLOW-UP ABOVE NORMAL BMI FOLLOW-UPDIETARY MANAGEMENT EDUCATION, GUIDANCE, AND COUNSELING ALCOHOL SCREENING DID YOU HAVE A DRINK CONTAINING ALCOHOL IN THE PAST YEAR?NO POINTS0 INTERPRETATIONNEGATIVE RECREATIONAL DRUG USE DRUG USE?YES CAFFEINE CAFFEINE USE?YES HOW OFTEN AND HOW MUCH? OCCASIONAL COFFEE SEXUAL HX HAD SEX IN THE LAST 12 MONTHS (VAGINAL, ORAL, OR ANAL)?YES WITHMEN ONLY HAVE YOU EVER HAD AN STD?NO HIV / HEP-C SCREENING HIV TEST OFFERED TO PATIENT:YES DATE OFFERED:07/19/2019 TEST ACCEPTED:NO HEP-C TEST OFFERED TO PATIENT:NO REASON:PATIENT DECLINED BROCHURE PROVIDED TO PATIENTNO AMISH [id number] OTHER NO SABIANISM BELIEFS THAT WOULD IMPACT HEALTH CARE. 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 DIET: REGULAR, LOW FAT, LOW CHOLESTEROL, PORTION CONTROL. EXERCISE: WALKS. MARITAL STATUS: .. OTHERS AT HOME: OTHER NON-RELATIVE. PAIN CLINIC PFS, CLERGY, PUBLIC HEALTH REFERRALS HAS THE PATIENT BEEN EDUCATED REGARDING HIS/HER PLAN OF CARE?YES HAS THE PATIENT BEEN EDUCATED REGARDING PAIN, THE RISK FOR PAIN, THE IMPORTANCE OF EFFECTIVE PAIN MANAGEMENT, AND THE PAIN ASSESSMENT PROCESS?YES ADVANCE DIRECTIVE ADVANCE DIRECTIVE DISCUSSED WITH PATIENT:YES DECLINED QUIT 2012. HOSPITALIZATION/MAJOR DIAGNOSTIC PROCEDURE SURGERY RELATED [facility]- CHOLEYCYSTITIS 05/2018 REVIEW OF SYSTEMS CONSTITUTIONAL: ANY RECENT FEVER OR ILLNESS NO . ANY CHANGE IN YOUR MEDICAL CONDITION? NO . CHILLS NO . MUSCULOSKELETAL: ANY NEW PATTERNS OF PAIN OR NUMBNESS? NO . SYSTEMIC LUPUS NO . LYME DISEASE NO . GASTROENTEROLOGY: ANY NEW CHANGE IN BOWEL CONTROL? NO . BARRETTS ESOPHAGUS NO . CIRRHOSIS NO . HEPATITIS NO . LIVER FAILURE NO . NO ABDOMINAL PAIN. ACID REFLUX NO . NO ANOREXIA. NO CONSTIPATION. NO CRAMPING. NO NAUSEA. NO RECTAL BLEEDING. NO VOMITING. UNEXPLAINED WEIGHT LOSS NO . GENITOURINARY: ANY NEW CHANGE IN BLADDER CONTROL? NO . IS THERE A CHANCE YOU COULD BE ? NO . NEUROLOGY: HEAD INJURY NO . NEW ONSET DIZZINESS NO . HEADACHE NO . STROKES NO . VERTIGO NO . CARDIOLOGY: ANGINA NO . HEART ATTACK NO . HEART SURGERY NO . CONGESTIVE HEART FAILURE/FLUID OVERLOAD NO . CHEST PAIN NO . HIGH BLOOD PRESSURE NO . IRREGULAR HEART BEAT NO . RESPIRATORY: SLEEP APNEA NO . ASTHMA NO . SHORTNESS OF BREATH ON EXERTION NO . COUGH NO . WHEEZING NO . ENDOCRINOLOGY: ADRENAL GLAND DISORDER NO . THYROID DISORDER NO . VITAL SIGNS WT 263.2 LBS, HT 5'10", BMI 37.76 INDEX, BP 147/88 MM HG, HR 77 /MIN, RR 18 /MIN, TEMP 98.0 F, OXYGEN SAT % 99%, NA INITIALS SC 09:32. EXAMINATION GENERAL EXAMINATION: GENERAL AWAKE,ALERT ,PLEASANT . PSYCH AFFECT NORMAL . NECK: TRACHEA MIDLINE. NO CERVICAL OR SUPRACLAVICULAR LYMPHADENOPATHY NOTED. LUNGS: LUNG FROST ARE CLEAR TO AUSCULTATION BILATERALLY. GOOD MOVEMENT OF AIR . HEART: S1, S2 IN A REGULAR RATE AND RHYTHM. NO SIGNIFICANT MURMURS, RUBS OR GALLOPS NOTED . ABDOMEN: SOFT/NONTENDER. MUSCULOSKELETAL: MUSCLE STRENGTH TESTING: SLIGHTLY WEAK OVER RIGHT LEG. LUMBAR: PALPATION: SPECIFIC POINT TENDERNESS NOTED OVER RIGHT LUMBAR FACET AND RIGHT SIJ. POSITIVE WILLIAMS'S TESTING RIGHT LEG. STRAIGHT LEG RAISE POSITIVE RIGHT LEG AT 30.. SKIN: NO RASH OR SKIN LESIONS. NEUROLOGIC EXAM: CN'S NORMAL TESTED , DTRS 1-2+ IN ALL 4 EXTREMITIES. DIAGNOSTIC TESTS REVIEWED. CT OF LUMBOSACRAL SPINE 08/21/2018 . ASSESSMENTS SACROILIITIS - M46.1 (PRIMARY) PROTRUSION OF LUMBAR INTERVERTEBRAL DISC - M51.26 LUMBAR RADICULOPATHY, RIGHT - M54.16 TREATMENT SACROILIITIS REFILL TRAMADOL HCL TABLET, 50 MG, 1 TABLET NEEDED, ORALLY, Q8H PRN SEVERA PAIN EPISODES MDD3 #45 TAB SHOULD LAST 30 DAYS, 30 DAYS, 45, REFILLS 1 NOTES: RIGHT SIJ , ISTOP REGISTRY REVIEWED AND DEMONSTRATES COMPLLIANCE. [facility] NARCOTIC AGREEMENT WAS REVIEWED AND SIGNED TODAY BY THE PATIENT. SEE ATTACHED DOCUMENT FOR FULL DETAILS; SPECIFIC ISSUES WERE REVIEWED: 1) KEEP PAIN MEDS IN THEIR ORIGINAL BOTTLES AND ANY WEEKLY PLANNERS ARE TO BE BROUGHT TO THE PAIN CENTER AT EVERY VISIT. 2) THE PATIENT IS NOT TO INCREASE DOSING OR TIMING OF THEIR PAIN MEDICATION WITHOUT SPECIFIC DIRECTION OF THEIR PAIN CENTERPROVIDER (NOT ER OR OTHER PROVIDERS). 3) ALL PAIN MEDS ARE TO BE KEPT SECURED, IN A LOCKED BOX. 4) NO PAIN MEDS ARE TO BE SHARED WITH ANY OTHER PERSON FOR ANY REASON. 5) NO PAIN MEDS MAY BE TAKEN FROM ANY FRIENDS OR RELATIVES FOR ANY REASON 6) NO MEDS OR SUBSTANCES WHICH ARE NOT LEGAL ARE TO BE USED- NO MARIJUANA, NO COCAINE, AMPHETAMINES, HEROIN, OR OTHERS ARE EVER TO BE USED. 7)URINE TESTING IS DONE TO ACCOUNT FOR MEDS AND SUBSTANCES BEING TAKEN AND WILL BE DONE RANDOMLY., RISKS OF NARCOTIC/OPIOD MEDICATIONS INCLUDES BUT IS NOT LIMITED TO RISK OF DEPENDANCE/DEVELOPMENT OF ADDICTION, MOOD DISTURBANCE AND DEPRESSION, OSTEOPOROSIS, HORMONAL AND LABIDAL CHANGES, RESPIRATORY DEPRESSION AND . PATIENT IS ADVISED NOT TO DRIVE OR DRINK ALCOHOL WHILE ON THESE MEDICATIONS, . OTHERS NOTES: SACROILIAC JOINT PAIN MATERIAL WAS PRINTED,SACROILIAC JOINT PAIN MATERIAL WAS PRINTED. PROCEDURE CODES FA211 ESTABILISHED PATIENT [facility] CHARGE DISPOSITION & COMMUNICATION FOLLOW UP POST (REASON: RIGHT SIJ) ELECTRONICALLY SIGNED BY HAILE JAUREGUI ON 10/09/2019 AT 01:18 PM EDT DISCLAIMER : THIS IS A VISIT SUMMARY EXTRACTED FROM THE [employer] CHART. IT IS NOT A COPY OF THE [employer] PROGRESS NOTE. CECILIO
== END ==
LOC: M PAIN 09:15
PROVIDERS: ATTEND Nurse Practitioner Family
DX: M46.1 Sacroiliitis, not elsewhere classified (principal); M51.26 Other intervertebral disc displacement, lumbar region; M54.16 Radiculopathy, lumbar region

== ENCOUNTER → 2019-12-03 | Outpatient (POV) | payer OTHER ==
[~2019-12-03] MED LIST changes: +TIZA4TAB4 PO
== END ==
LOC: M PAIN 09:00
PROVIDERS: ATTEND Nurse Practitioner Family
DX: M46.1 Sacroiliitis, not elsewhere classified (principal)

== ENCOUNTER 2020-02-14 13:59 | Emergency (ER) | payer OTHER ==
[~2020-02-14] VITALS: Ht 180.3 cm; Wt 131.1 kg
[~2020-02-14 13:59] MED LIST changes: -TIZA4TAB4 PO
[2020-02-14 14:01] VITALS: BP 133/97
[2020-02-14] MEDS ORDERED: TIZA4TAB4 PO (14:09)
== END 2020-02-14 15:25 | disposition left against medical advice (07) ==
LOC: M ED 13:59
DX: M79.661 Pain in right lower leg (principal); J45.909 Unspecified asthma, uncomplicated; Z98.84 Bariatric surgery status; Z79.51 Long term (current) use of inhaled steroids; Z79.899 Other long term (current) drug therapy

== ENCOUNTER → 2020-02-18 | Outpatient (CLI) | payer OTHER ==
[~2020-02-18] MED LIST changes: +TIZA4TAB4 PO
--- NOTE | 2020-02-19 14:40 | ECWPNPC ---
PATIENT NAME: NABEEL DELUNA : 1990 GENDER: FEMALE VISIT DATE: 02/18/2020 DISCHARGE DATE: 02/18/20 1221 VISIT LOCKED DATE TIME: PHYSICIAN: CHERISE MUSTAFA PHYSICIAN PAGER NO: ACTIVE RESOURCE: CHERISE MUSTAFA REASON FOR APPOINTMENT 1. LBP HISTORY OF PRESENT ILLNESS GENERAL: HERE FOR FOLLOW-UP OF CHRONIC LOW BACK PAIN WITH RADIATION INTO RIGHT LEG. PATIENT STATES TRAMADOL AND TIZANIDINE ARE HELPFUL WHEN SHE IS ABLE TO TAKE IT AT NIGHT. STATES WHEN SHE WORKS AND ESPECIALLY FOR LONG HOURS HER PAIN IS UNBEARABLE. SHE IS ASKING US TO WRITE A NOTE RESTRICTING NUMBER OF HOURS SHE IS ABLE TO WORK. I DID INFORM HER THAT WE WOULDN'T BE ABLE TO DO THAT AND THAT SHE WOULD HAVE TO CONTACT PRIMARY CARE PROVIDER. WE WANT TO GET STARTED WITH INJECTIONS FOR HER PERSISTENT PAIN BUT HER INSURANCE CURRENTLY WILL NOT COVER IT. STATES THAT SHE WILL BE GETTING NEW INSURANCE IN MARCH AND MAY CONSIDER DOING INJECTIONS AT THAT POINT. -. FALL RISK SCREENING: SCREENING :NO FALLS REPORTED IN THE LAST YEAR PAIN SCREENING: PATIENT HAS A COMPLAINT OF ACUTE OR CHRONIC PAIN :YES LOCATION OF PAIN:LOW BACK INTENSITY OF PAIN (SCALE OF 1 TO 10):7 WHAT DOES YOUR PAIN FEEL LIKE:ACHING, SHARP DURATION:CONTINOUS, CONSTANT PAIN IS INCREASED BY:ACTIVITIES PAIN IS DECREASED BY:SITTING TREATMENT/MEDICATIONS USED TO MANAGE PAIN:OPIOIDS LEVEL OF RELIEF FROM PAIN TREATMENTS IN THE PAST:75% PAIN HAS INTERFERED WITH THE FOLLOWING:BATHING/DRESSING, SLEEP NURSING NOTE: -. PAIN CENTER INTAKE QUESTIONS: DO YOU HAVE A HISTORY OF MRSA? :NO DO YOU TAKE A BLOOD THINNERS? :NO DO YOU HAVE ANY BLEEDING DISORDERS? :NO ANY NEW NUMBNESS OR WEAKNESS IN YOUR LEGS OR ARMS? :NO ANY PACEMAKER,DEFIBRILLATOR, OR DORSAL COLUMN STIMULATOR? :NO DO YOU HAVE ANY RASHES OR OPEN SORES? :NO ARE YOU ALLERGIC TO IV DYE? :NO ARE YOU DIABETIC? :NO ANY NEW PROBLEMS WITH YOUR MEDICATIONS? :NO HAVE YOU RECEIVED A VACCINE IN THE PAST 30 DAYS? :YES IF SO WHAT VACCINE AND WHEN? FLU VACCINE 01/19/20 DO YOU PLAN TO RECEIVE A VACCINE IN THE NEXT 21 DAYS? :NO DO YOU NEED ANY PRESCRIPTION? :NO DO YOU TAKE ANY IMMUNOSUPPRESSIVE MEDICATIONS? :NO IS THERE A CHANCE YOU COULD BE ? :NO ARE YOU BREAST FEEDING? :NO CURRENT MEDICATIONS TAKING TIZANIDINE HCL 4 MG TABLET 1 TABLET NEEDED ORALLY THREE TIMES A DAY TAKING PROAIR HFA 108 (90 BASE) MCG/ACT AEROSOL SOLUTION 1 PUFF NEEDED INHALATION EVERY 4 HRS TAKING TRAMADOL HCL 50 MG TABLET 1 TABLET NEEDED ORALLY Q8H PRN SEVERA PAIN EPISODES MDD3 #45 TAB SHOULD LAST 30 DAYS TAKING ADVAIR HFA 115-21 MCG/ACT AEROSOL 2 PUFFS INHALATION TWICE A DAY NOT-TAKING NAPROXEN 500 MG TABLET 1 TABLET WITH FOOD OR MILK NEEDED ORALLY EVERY 12 HRS NOT-TAKING AMOXICILLIN 875 MG TABLET 1 TABLET ORALLY EVERY 12 HRS NOT-TAKING TRAMADOL HCL 50 MG TABLET 1 TABLET NEEDED ORALLY Q6H PRN MEDICATION LIST REVIEWED AND RECONCILED WITH THE PATIENT PAST MEDICAL HISTORY ANXIETY/DEPRESSION ASTHMA ALLERGIC RHINITIS-SEASONAL VITAMIN D DEFICIENCY MORBID OBESITY HYPERLIPIDEMIA ALLERGIES CELEBREX: UPSET STOMACH - SIDE EFFECTS SURGICAL HISTORY TONSILLECTOMY 2007 GASTRIC BYPASS- DR. ELIZABETH 11/2015 CHOLECYSTECTOMY- DR. REY 05/2018 FAMILY HISTORY FATHER: ALIVE MOTHER: ALIVE, DIAGNOSED WITH HYPERTENSION SIBLINGS: ALIVE PATERNAL GRAND FATHER: , LUNG CANCER, THYROID CANCER, OTHER MALIGNANT NEOPLASM OF UNSPECIFIED SITE PATERNAL GRAND MOTHER: , UNSPECIFIED HEART DISEASE MATERNAL GRAND FATHER: , OF [place] AT 62 Y/O AND HAD LUNG AND ESOPHAGEAL CANCER - SMOKER, HYPERTENSION, UNSPECIFIED HEART DISEASE, DIABETES, OTHER MALIGNANT NEOPLASM OF UNSPECIFIED SITE PATERNAL AUNT: ALIVE, DIABETES, UNSPECIFIED CEREBRAL ARTERY OCCLUSION WITH CEREBRAL INFARCTION MATERNAL GRAND MOTHER: HYPERTENSION 1 BROTHER(S) . 1 SON(S) - HEALTHY. SOCIAL HISTORY GENERAL: TOBACCO USE ARE YOU A:FORMER SMOKER HOW LONG HAS IT BEEN SINCE YOU LAST SMOKED?1-3 MONTHS LATEX QUESTIONNAIRE LATEX ALLERGY : HAVE YOU EVER DEVELOPED ANY TYPE OF REACTION AFTER HANDLING LATEX PRODUCTS SUCH RUBBER GLOVES, CONDOMS, DIAPHRAGMS, BALLOONS, SOCKS, OR UNDERWEAR?NO LATEX ALLERGY : HAVE YOU EVER DEVELOPED ANY TYPE OF REACTION DURING OR AFTER DENTAL APPOINTMENT, VAGINAL/RECTAL EXAMINATION, SURGICAL PROCEDURE, OR ANY OTHER EXPOSURE?NO LATEX RISK : HAVE YOU EVER HAD ANY DIFFICULTY BREATHING OR HIVES AFTER EATING OR HANDLING ANY FRUITS, OR VEGETABLES; SUCH KIWI, BANANAS, STONE FRUITS, OR CHESTNUTSNO LATEX RISK : DO YOU HAVE A PREVIOUS PERSONAL HISTORY OF MORE THAN NINE SURGERIES, SPINA BIFIDA, OR REPEATED CATHERIZATIONS? NO LATEX RISK : ARE YOU FREQUENTLY EXPOSED TO LATEX PRODUCTS IN YOUR OCCUPATION?NO DATE ASKED : 10/09/2019 BMI CARE GOAL FOLLOW-UP ABOVE NORMAL BMI FOLLOW-UPDIETARY MANAGEMENT EDUCATION, GUIDANCE, AND COUNSELING ALCOHOL SCREENING DID YOU HAVE A DRINK CONTAINING ALCOHOL IN THE PAST YEAR?NO POINTS0 INTERPRETATIONNEGATIVE RECREATIONAL DRUG USE DRUG USE?YES CAFFEINE CAFFEINE USE?YES HOW OFTEN AND HOW MUCH? OCCASIONAL COFFEE SEXUAL HX HAD SEX IN THE LAST 12 MONTHS (VAGINAL, ORAL, OR ANAL)?YES WITHMEN ONLY HAVE YOU EVER HAD AN STD?NO HIV / HEP-C SCREENING HIV TEST OFFERED TO PATIENT:YES DATE OFFERED:07/19/2019 TEST ACCEPTED:NO HEP-C TEST OFFERED TO PATIENT:NO REASON:PATIENT DECLINED BROCHURE PROVIDED TO PATIENTNO PROTESTANT [id number] OTHER NO BAHAI BELIEFS THAT WOULD IMPACT HEALTH CARE. 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 DIET: REGULAR, LOW FAT, LOW CHOLESTEROL, PORTION CONTROL. EXERCISE: WALKS. MARITAL STATUS: .. OTHERS AT HOME: OTHER NON-RELATIVE. PAIN CLINIC PFS, CLERGY, PUBLIC HEALTH REFERRALS HAS THE PATIENT BEEN EDUCATED REGARDING HIS/HER PLAN OF CARE?YES HAS THE PATIENT BEEN EDUCATED REGARDING PAIN, THE RISK FOR PAIN, THE IMPORTANCE OF EFFECTIVE PAIN MANAGEMENT, AND THE PAIN ASSESSMENT PROCESS?YES ADVANCE DIRECTIVE ADVANCE DIRECTIVE DISCUSSED WITH PATIENT:YES DECLINED QUIT 2012. HOSPITALIZATION/MAJOR DIAGNOSTIC PROCEDURE SURGERY RELATED [facility]- CHOLEYCYSTITIS 05/2018 REVIEW OF SYSTEMS CONSTITUTIONAL: ANY RECENT FEVER NO . ANY CHANGE IN YOUR MEDICAL CONDITION? NO . CHILLS NO . MUSCULOSKELETAL: ANY UNUSUAL JOINT PAIN OR SWELLING NOT MENTIONED NO . SYSTEMIC LUPUS NO . LYME DISEASE NO . GASTROENTEROLOGY: ANY NEW CHANGE IN BOWEL CONTROL? NO . BARRETTS ESOPHAGUS NO . CIRRHOSIS NO . HEPATITIS NO . HISTORY OF LIVER DISORDER NOT MENTIONED NO . NO HISTORY OF UNUSUAL ABDOMINAL PAIN OR CRAMPING NOT MENTIONED. ACID REFLUX NO . NO ANOREXIA. NO CONSTIPATION. NO CRAMPING. NO NAUSEA. NO RECTAL BLEEDING. NO VOMITING. UNEXPLAINED WEIGHT LOSS NO . GENITOURINARY: ANY NEW CHANGE IN BLADDER CONTROL? NO . IS THERE A CHANCE YOU COULD BE ? NO . NEUROLOGY: HEAD INJURY NO . NEW ONSET DIZZINESS OR NEUROLOGICAL CHANGES NOT MENTIONED NO . HISTORY OF SEVERE HEADACHES NOT MENTIONED NO . HISTORY OF STROKE OR NEUROLOGICAL DISORDER NOT MENTIONED NO . VERTIGO NO . CARDIOLOGY: ANGINA NO . HEART ATTACK NO . HEART SURGERY NO . CONGESTIVE HEART FAILURE/FLUID OVERLOAD NOT MENTIONED NO . HISTORY OF CHEST PAIN,IRREGULAR HEART BEAT NOT MENTIONED NO . HIGH BLOOD PRESSURE NO . IRREGULAR HEART BEAT NO . RESPIRATORY: SLEEP APNEA NO . ASTHMA NO . SHORTNESS OF BREATH ON EXERTION, WHEEZES, UNUSUAL COUGH NOT MENTIONED NO . COUGH NO . WHEEZING NO . ENDOCRINOLOGY: ADRENAL GLAND OR THYROID DISORDERS NOT MENTIONED NO . THYROID DISORDER NO . VITAL SIGNS WT 291.4 LBS, HT 5'10", BMI 41.81 INDEX, BP 121/72 MM HG, HR 71 /MIN, RR 18 /MIN, TEMP 96.6 F, OXYGEN SAT % 100%, SAFE IN ENV? (Y/N) Y, NA INITIALS AW 1145, REVIEWED BY: EM. EXAMINATION GENERAL EXAMINATION: GENERALAWAKE,ALERT ,PLEASANT . PSYCHAFFECT NORMAL . LUNGS:LUNG FROST ARE CLEAR TO AUSCULTATION BILATERALLY. GOOD MOVEMENT OF AIR . HEART:S1, S2 IN A REGULAR RATE AND RHYTHM. NO SIGNIFICANT MURMURS, RUBS OR GALLOPS NOTED . ASSESSMENTS SACROILIITIS - M46.1 RIGHT LUMBAR RADICULOPATHY - M54.16 TREATMENT SACROILIITIS REFILL TRAMADOL HCL TABLET, 50 MG, 1 TABLET NEEDED, ORALLY, Q8H PRN SEVERA PAIN EPISODES MDD3 #45 TAB SHOULD LAST 30 DAYS, 30 DAYS, 45, REFILLS 1 NOTES: FOLLOW-UP IS SCHEDULED IN 2 MONTHS. AT THAT POINT WE MAY CONSIDER PROCEDURES SHE WILL HAVE INSURANCE. URINE TOXICOLOGY AND PHQ2 AT FOLLOW-UP IN 2 MONTHS. RIGHT LUMBAR RADICULOPATHY REFILL TIZANIDINE HCL TABLET, 4 MG, 1 TABLET NEEDED, ORALLY, BEFORE BEDTIME, 30 DAYS, 30, REFILLS 1 OTHERS NOTES: PT REQUESTING PAIN MEDS DURING DAYTIME AND WORK RESTRICTIONS. PROCEDURE CODES FA211 ESTABILISHED PATIENT [facility] CHARGE DISPOSITION & COMMUNICATION FOLLOW UP 2 MONTHS (REASON: CONSIDER INJECTIONS/MED MANAGEMENT) ELECTRONICALLY SIGNED BY HAILE JAUREGUI ON 02/19/2020 AT 01:00 PM EDT DISCLAIMER : THIS IS A VISIT SUMMARY EXTRACTED FROM THE [facility] [employer] CHART. IT IS NOT A COPY OF THE [facility] PROGRESS NOTE. CECILIO
== END ==
LOC: M PAIN 11:15
PROVIDERS: ATTEND Nurse Practitioner Family
DX: M46.1 Sacroiliitis, not elsewhere classified (principal); M54.16 Radiculopathy, lumbar region; F41.9 Anxiety disorder, unspecified; F32.9 Major depressive disorder, single episode, unspecified; J45.909 Unspecified asthma, uncomplicated; E55.9 Vitamin D deficiency, unspecified; E66.01 Morbid (severe) obesity due to excess calories; E78.5 Hyperlipidemia, unspecified; Z98.84 Bariatric surgery status; Z87.891 Personal history of nicotine dependence; Z88.8 Allergy status to other drugs, medicaments and biological substances; Z68.41 Body mass index [BMI] 40.0-44.9, adult; Z79.899 Other long term (current) drug therapy; Z79.891 Long term (current) use of opiate analgesic

== ENCOUNTER → 2020-04-07 | Outpatient (REF) | payer OTHER ==
[2020-04-07 17:10] LABS: HEMATOCRIT 35.9 % (36.0-47.0); HEMOGLOBIN 10.9 g/dl (12.0-15.5); MEAN CORPUSCULAR HEMOGLOBIN 24.8 pg (27.0-33.0); MEAN CORPUSCULAR HGB CONC 30.4 g/dl (32.0-36.5); MEAN CORPUSCULAR VOLUME 81.6 fl (80.0-96.0); PLATELET COUNT, AUTOMATED 338 10^3/uL (150-450); WHITE BLOOD COUNT 10.1 10^3/uL (4.0-10.0)
[2020-04-07 17:30] LABS: HCG, SERUM QUANTITATIVE 785 MIU/ML
[2020-04-07 18:16] LABS: HIV 1&2 SCREEN CENTAUR NEGATIVE (NEGATIVE)
== END ==
LOC: M LAB REF 16:29
PROVIDERS: ATTEND Obstetrics & Gynecology
DX: O36.80X0 Pregnancy with inconclusive fetal viability, not applicable or unspecified (principal); Z3A.00 Weeks of gestation of pregnancy not specified

== ENCOUNTER → 2020-04-08 | Outpatient (CLI) | payer BC | LOC: M LAB 08:08 | PROVIDERS: ATTEND Obstetrics & Gynecology | DX: O36.80X0 Pregnancy with inconclusive fetal viability, not applicable or unspecified (principal) ==

== ENCOUNTER → 2020-04-10 | Outpatient (CLI) | payer BC ==
--- NOTE | 2020-04-10 10:30 | REP ---
INDICATION: DATING AND VIABILITY. Inconclusive dating and viability. COMPARISON: None. TECHNIQUE: Transabdominal and transvaginal scanning. FINDINGS: Scanning demonstrates an intrauterine gestational sac by. No embryonic pole or yolk sac is seen. By mean sac size diameter of 12 mm, this would correspond with a 5 week 2 day gestational age estimate. No subchorionic hemorrhage is seen. There is a cystic area in the right ovary consistent with corpus luteum. Minimal amount of cul-de-sac fluid is seen. IMPRESSION: Nonspecific sonographic findings. Gestational sac in the uterus without observable pole or yolk sac. viability is not confirmed. Clinical and possibly sonographic follow-up is advised. Five weeks 2 days size by mean sac size diameter. <Electronically signed by Tavo Navarro > 04/10/20 [id number]
== END ==
LOC: M WHC 09:04
PROVIDERS: ATTEND Obstetrics & Gynecology
DX: O36.80X0 Pregnancy with inconclusive fetal viability, not applicable or unspecified (principal); Z3A.01 Less than 8 weeks gestation of pregnancy

== ENCOUNTER → 2020-04-30 | Outpatient (CLI) | payer BC, OTHER | LOC: M CLY 13:45 | PROVIDERS: ATTEND Family Medicine | DX: Z02.89 Encounter for other administrative examinations (principal) ==

== ENCOUNTER → 2020-05-05 | Outpatient (CLI) | payer OTHER ==
--- NOTE | 2020-05-05 15:56 | REP ---
INDICATION: DATING/VIABILITY. COMPARISON: None. TECHNIQUE: Transabdominal obstetric sonography. FINDINGS: Scanning through the urine filled bladder demonstrates a single living intrauterine gestation in a free-floating lie. The crown-rump length of the embryonic pole is 20 mm. This corresponds with a gestational age estimate of 8 weeks 4 days. heart rate is recorded at 172 beats per minute. No subchorionic hemorrhage is seen. No extra uterine abnormality is observed. Closed cervical length measured transabdominally is 3.2 cm. IMPRESSION: Viable single intrauterine gestation at 8 weeks 4 days by today's crown-rump length criteria. JAIRO by today's sonography December 11, 2020. No complication identified. <Electronically signed by Tavo Navarro > 05/05/20 [id number]
== END ==
LOC: M WHC 12:27
PROVIDERS: ATTEND Advanced Practice Midwife
DX: O36.80X0 Pregnancy with inconclusive fetal viability, not applicable or unspecified (principal); Z3A.08 8 weeks gestation of pregnancy

== ENCOUNTER 2020-06-05 13:07 | Emergency (ER) | payer OTHER ==
[~2020-06-05] VITALS: Ht 177.8 cm; Wt 131.0 kg
[2020-06-05 13:08] VITALS: BP 133/65
--- OUTSIDE RECORDS SUMMARY | 2020-06-05 13:17 | CCD | Continuity of Care Document ---
Author Author [facility] Organization [facility] Address Unknown Phone Unavailable Care Team Providers Care Tape Deck Installer Name Role Phone Evi Sánchez MD Unavailable Unavailable Allergies, Adverse Reactions, Alerts Substance Reaction Status Criticality latex Hives/Ski n Rash, Itching Active No Information Medications Medication Instructions Dosage Effective Dates (start - stop) Sta tus Comments medroxyprogesterone 150 mg/mL intramuscular suspension IM every 10-13 weeks - Active tramadol 50 mg tablet take 1 tablet by oral route every 6 h ours as needed 50 MG - Active Advair HFA 115 mcg-21 mcg/actuation aerosol inhaler - Active Problems Condition Effective Dates (start - stop) Clinical Status C omments Body mass index (BMI) 32.0-32.9, adult - Body mass index (BMI) 40.0-44.9, adult - Obesity, Morbid - Encounter for surveillance of injectable contraceptive Encounter for test, result negative Other sex counseling Encounter for oth general cnsl and advice on contraception Encounter for initial prescription of injectable contracep Human immunodeficiency virus [HIV] counseling Encounter for test, result negative Other sex counseling Encounter for oth general cnsl and advice on contraception Human immunodeficiency virus [HIV] counseling Encntr screen for infections w sexl mode of transmiss High risk heterosexual behavior 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) w/o abn findings Encounter for surveillance of injectable contraceptive Encounter for surveillance of injectable contraceptive Encounter for surveillance of injectable contraceptive Encounter for test, result negative Other sex counseling Encounter for oth general cnsl and advice on contraception Encounter for initial prescription of injectable contracep Encounter for test, result negative Encounter for surveillance of injectable contraceptive Encounter for test, result negative Human immunodeficiency virus [HIV] counseling Encounter for test, result negative Encounter for oth general cnsl and advice on contraception Encounter for initial prescription of injectable contracep High risk heterosexual behavior 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) w/o abn findings Negative test - HIV counseling - DATABASE REPORTING CONSULTANT Exam, Routine [facility] Amenorrhea BCM Other, Start PT, Negative DATABASE REPORTING CONSULTANT Exam, Routine WWE STI Screening OCP, Start Family Planning Counseling Atypical squamous cells of undetermined significance on cervical Papanicolaou smear - Active HPV positive Procedures Procedure Date No Information Results Test Name Date and Time Measure Units Reference Range Abnormal Flag St atus Comments No Information Advance Directives Directive Yes / No Effective Date File Name No Information Encounters Encounter Description Practice Location Reason(s) For Visit Diagnose s Date Provider Providers Copied on Encounter [facility], [address] [place] [address], [id number], tel:[phone] CARLOS Stapleton No Information Gonzalo Steve. [address] [place] [address], [id number], [place]. tel:[phone] [facility], [address] [place] [address], [id number], tel:[phone] CARLOS Winslow Encounter for surve illance of injectable contraceptiveEncounter for test, result negative Lan. [address] [place] [address], [id number], [place]. tel:[phone] Referring Provider: Dara Dawson, [address] [place] [address], [id number]. tel:[phone] [facility], [address] [place] [address], [id number], tel:[phone] CARLOS Winslow Other sex counselin gEncounter for oth general cnsl and advice on contraceptionEncounter for initial prescription of injectable contracepHuman immunodeficiency virus [HIV] counselingEncounter for test, result negative Shawnee Marin. [address], [place], [id number], [place]. tel:[phone] Referring Provider: Tania Mallory, [address], [place], [id number]. 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 [address], [place], [id number], . tel:[phone] Referring Provider: Tania Mallory, [address], [place], [id number]. tel:[phone] [facility] [place], [address] [place] [address], [id number], [place] tel:[phone] [facility] Winslow Encounter for surve illance of injectable contraceptive Juaquin Doran. [address] [place] [address], [id number], [place]. tel:[phone] [facility] [place], [address] [place] [address], [id number], [place] tel:[phone] [facility] Winslow Encounter for surve illance of injectable contraceptiveEncounter for test, result negative Juaquin Doran. [address] [place] [address], [id number], [place]. tel:[phone] Referring Provider: Andreea Reza, [address] [place] [address], [id number]. tel:[phone] [facility] [place], [address] [place] [address], [id number], [place] tel:[phone] QUIQUENJETHAN Winslow Other sex counselin gEncounter for oth general cnsl and advice on contraceptionEncounter for initial prescription of injectable contracepEncounter for test, result negative Melissajannet Cynthia. [address] [place] [address], [id number], [place]. tel:[phone] Referring Provider: Cynthia Lopez, [address], [place], [id number]. tel:[phone] [facility], [address] [place] [address], [id number], [place] tel:[phone] CARLOS Winslow Encounter for surve illance of injectable contraceptiveEncounter for test, result negative King Yomaira. [address] [place] [address], [id number]. tel:[phone] Referring Provider: Yomaira Cotton, [address] [place] [address], [id number]. tel:[phone] Provider: CARLOS Nurse/CA. 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 [address] [place] [address], [id number], [place]. tel:[phone] Referring Provider: Mirna German, [address] [place] [address], [id number]. tel:[phone] [facility], [address] [place] [address], [id number], [place] tel:[phone] [facility] Negative testHIV counselingObesity, MorbidGYN Exam, Routine WWEFamily Planning CounselingAmenorrhea Silas Castellano. [address], [place], [id number], [place]. tel:[phone] [facility], [address] [place] [address], [id number], [place] tel:[phone] QUIQUENJETHAN Winslow BCM Other, StartPT, Negati ve Silas Castellano. [address], [place], [id number] , [place]. tel:[phone] [facility], [address] [place] [address], [id number], [place] tel:[phone] CARLOS Winslow No Information O Smith Dobson. [address], [place], [id number], [place]. tel:[phone] [facility], [address] [place] [address], [id number], [place] tel:[phone] QUIQUENJETHAN Winslow DATABASE REPORTING CONSULTANT Exam, Routine W WESTI ScreeningOCP, StartFamily Planning Counseling Nichelle Dobson. [address], [place], [id number], [place]. tel:[phone] Family History Family Member Diagnosis Age At Onset Grandparents Depression Brother No history of Stroke Grandfathers Alcoholism Mother Hypertension Mother Depression Sister No history of Myocardial infarction Father Hepatitis Father Depression Father No history of Myocardial infarction Father No history of Stroke Mother No history of Stroke Paternal grandfather Cancer - Sister No history of Stroke Maternal grandmother Blood clots, lung Mother Hyperlipidemia Maternal grandmother Hypertension Grandparents Heart disease Grandparents Alzheimer's Disease Brother No history of Myocardial infarction Father Hyperlipidemia Mother No history of Myocardial infarction Paternal aunt Stroke Maternal grandmother Cancer - Paternal Great Grand Diabetes mellitus Immunizations Vaccine Date Status Comments Varicella administered Source: New Immu nization Record Tetanus administered Source: New Immu nization Record MMR administered Source: New Immu nization Record HPV administered Source: New Immu nization Record Hepatitis B administered Source: New Immu nization Record Hepatitis A administered Source: New Immu nization Record Payers Payer name Insurance type Covered alliance party ID Authorization(s ) [facility] [id number] Social History Type Description Quantity Date Captured Comments Sex Female Smoking Status No Information Vital Signs Date / Time: Height Weight BMI Pulse Rate Blood Pressure Temperatu re Respiratory Rate Body Surface Area Head Circumference BMI percentile Pulse Ox In haled Ox No Information Chief Complaint And Reason For Visit No Information Reason For Referral Reason For Referral No Information Plan Of Treatment Date Type Action Status Goal Dietary management education, gu idance, and counseling completed Goal Dietary management education, gu idance, and counseling completed Goal Dietary management education, gu idance, and counseling completed History Of Present Illness Encounter Date Complaint History Of Present I llness No Information Functional Status Date Functional Assessment No Information Medications Administered Medication Instructions Dosage Effective Dates (start - stop) Sta tus Comments No Information Instructions Date Instruction Additional Informati on Dietary management education, guidance, and counseling Related to Body mass index (BMI) 32.0-32.9, adult Dietary management education, guidance, and counseling Related to Body mass index (BMI) 40.0-44.9, adult Dietary management education, guidance, and counseling Related to Morbid obesity Assessments Type Assessment Date No Information Goals Health Concern Goal Type Priority Status Date No Information Medical Equipment Description Device [place] Device Identifier Effective Enrike es (start - stop) Status No Information Mental Status Date Cognitive Assessment No Information Health Concerns Observation Date No Information Concern Status Date No Information Physical Examination Exam Findings Details No Information
--- OUTSIDE RECORDS SUMMARY | 2020-06-05 13:17 | CCD ---
Author Author [facility] Organization [facility] Address Unknown Phone Unavailable Care Team Providers Care Rod Cup Filler Name Role Phone Von Roper Unavailable PROBLEMS Type Condition ICD9-CM Code [id number] Code Onset Dates Condition S tatus SNOMED Code Notes Problem Irregular menses 626.4 Active 75588822 Problem Uncomplicated severe persistent asthma J45.50 A ctive 835853559 Problem Morbid obesity 278.01 Active 315238353 Problem Vitamin D deficiency E55.9 Active 24058618 Problem Mixed hyperlipidemia E78.2 Active 933427665 Problem Severe episode of recurrent major depressive disorder, without psychotic features F33.2 Active 27855766 Problem Mild intermittent asthma without complication J45. 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 Active 54814314 Problem Allergic rhinitis, unspecified seasonality, unspecifie d trigger J30.9 Active 09303141 Problem Other chronic pain G89.29 Active 29095179 Problem Status post gastric bypass for obesity Z98.84 A ctive 267101224 Problem Acute right-sided low back pain with right-sided sciatica M54.41 Active 836270924 ALLERGIES Allergen (clinical drug ingredient) Drug/Non Drug Allergy do cumented on EMR Reaction Allergy Type Onset Date Status celecoxib Celebrex([facility] Code:[address]-76) upset stomach Drug Allerg y Active ENCOUNTERS from 1989 to 2020-04-28 Encounter Location Date Provider Diagnosis [facility] [place] [address] [place] [address] Mar Von Sotonubianitin IMMUNIZATIONS Vaccine Route Administration Date Status MMR 0.5mL IM Intramuscular Dec 24, 2018 Administered Influenza (6mo & up) Fluzone IM Intramuscular Mar 26, 2018 Ad ministered SOCIAL HISTORY Tobacco Use: Social History Observation Description Date Details (start date - stop date) Former Smoker Sex Assigned At : Social History Observation Description Sex Assigned At Unknown Education: Question Answer Notes Level of Education: Finished High School Audit Question Answer Notes Total Score: 0 Interpretation: Alcohol Education Language: Question Answer Notes Languages spoken: Lao Anabaptism: Question Answer Notes Anabaptism 99 Other No confucianism beliefs that would impact health care. Sexual Hx: Question Answer Notes Had sex in the last 12 months (vaginal, oral, or anal)? Yes Have you ever had an STD? No with Men only Drug and Alcohol Question Answer Notes Total Score: 0 Interpretation: No problems reported Alcohol Screening: Question Answer Notes Did you have a drink containing alcohol in the past year? No Points 0 Interpretation Negative BMI Care Goal Follow-Up Question Answer Notes Above Normal BMI Follow-Up Dietary management educatio n, guidance, and counseling Tobacco Use: Question Answer Notes Are you a: former smoker How long has it been since you last smoked? 1-3 months REASON FOR REFERRAL No Information VITAL SIGNS No information MEDICATIONS Medication SIG (Take, Route, Frequency, Duration) Notes Start Da te End Date Status Advair HFA 115-21 MCG/ACT 2 puffs Inhalation Twice a day for 90 day(s ) Active Tramadol HCl 50 MG 1 tablet as needed Orally Q8 H PRN SEVERA PAIN EPISODES MDD3 #45 TAB SHOULD LAST 30 DAYS for 30 Days Not-Taking Tizanidine HCl 4 MG 1 tablet as needed Orally before bedtime for 30 Days Jun, Not-Taking Advair HFA 115-21 MCG/ACT 2 puffs Inhalation Twice a day for 30 Not-Taking ProAir HFA 108 (90 Base) MCG/ACT 1 puff as needed Inha lation every 4 hrs for 30 Days Active Tramadol HCl 50 MG 1 tablet as needed Orally q6h prn 2019 Not-Taking PROCEDURES No Information RESULTS No Results REASON FOR VISIT Physical Appt MEDICAL (GENERAL) HISTORY Type Description Date Medical History Anxiety/depression Medical History Asthma Medical History Allergic Rhinitis-seasonal Medical History Vitamin d Deficiency Medical History Morbid Obesity Medical History Hyperlipidemia Surgical History Tonsillectomy 2007 Surgical History Gastric bypass- Dr. Beaulieu 11/2015 Surgical History Cholecystectomy- Dr. Givens 05/2018 Hospitalization History surgery related Hospitalization History [facility]- choleycystitis 05/2018 Goals Section No Information Health Concerns No Information MEDICAL EQUIPMENT No Information MENTAL STATUS No Information FUNCTIONAL STATUS No Information ASSESSMENTS No Information PLAN OF TREATMENT Next Appt Details Provider Name:Von Ivet Roper, 11:00:00 AM, [address] [place], [address], Insurance Providers Payer Name Payer Address Payer Phone Insured Name Patient Relati onship to Insured Coverage Start Date Coverage End Date [facility] [address] [place] [phone] NABEEL DELUNA self
--- OUTSIDE RECORDS SUMMARY | 2020-06-05 13:17 | CCD ---
Author Author [facility] Organization [facility] Address Unknown Phone Unavailable Care Team Providers Care Pottery Kiln Builder Name Role Phone Bhavna Jarvis Unavailable PROBLEMS Type Condition ICD9-CM Code [id number] Code Onset Dates Condition S tatus SNOMED Code Notes Problem Irregular menses 626.4 Active 01268871 Problem Uncomplicated severe persistent asthma J45.50 A ctive 250795267 Problem Morbid obesity 278.01 Active 407078562 Problem Vitamin D deficiency E55.9 Active 95179991 Problem Mixed hyperlipidemia E78.2 Active 418047901 Problem Severe episode of recurrent major depressive disorder, without psychotic features F33.2 Active 28281927 Problem Mild intermittent asthma without complication J45. 20 Active 657677363 Problem S/P cholecystectomy Z90.49 Active 852232581 Problem Protrusion of lumbar intervertebral disc M51.26 Active 743774662 Problem Moderate persistent asthma without complication J4 5.40 Active 848902478 Problem Sacroiliitis M46.1 Active 60294839 Problem Varicose veins of both lower extremities with pain I83.813 Active 99740850 Problem Allergic rhinitis, unspecified seasonality, unspecifie d trigger J30.9 Active 67705169 Problem Other chronic pain G89.29 Active 60580250 Problem Status post gastric bypass for obesity Z98.84 A ctive 805352618 Problem Acute right-sided low back pain with right-sided sciatica M54.41 Active 362292011 ALLERGIES Allergen (clinical drug ingredient) Drug/Non Drug Allergy do cumented on EMR Reaction Allergy Type Onset Date Status celecoxib Celebrex([facility] Code:[address]-43) upset stomach Drug Allerg y Active ENCOUNTERS from 1989 to 2020-04-29 Encounter Location Date Provider Diagnosis [facility] [place] [address] [place] [address] Mar Bhavna Jarvis Administrative encounter Z02.9 ; Routine physical examination Z00.00 and Screening for tuberculosis Z11.1 IMMUNIZATIONS Vaccine Route Administration Date Status MMR [...] Education Language: Question Answer Notes Languages spoken: Cypriot Anglican: Question Answer Notes Anglican 99 Other No sikh beliefs that would impact health care. Sexual [...] REASON FOR REFERRAL No Information VITAL SIGNS Weight 286 lbs Mar, Height 5'10" in Mar, BMI 41.03 kg/m2 Mar, Heart Rate 88 /min Mar, Respiratory Rate 18 /min Mar, Temperature 97.6 degrees Fahrenheit Mar, Oximetry 99 Mar, Blood pressure systolic 124 mm Hg Mar, Blood pressure diastolic 70 mm Hg Mar, MEDICATIONS Medication SIG (Take, Route, Frequency, Duration) [...] 1 tablet as needed Orally q6h prn 17 2019 Not-Taking PROCEDURES No Information RESULTS No Results REASON FOR VISIT work physical and ppd needs before 05/04 MEDICAL (GENERAL) HISTORY Type Description Date Medical [...] No Information FUNCTIONAL STATUS No Information ASSESSMENTS Encounter Date Diagnosis Assessment Notes Treatment Notes Treatm ent Clinical Notes Mar, Administrative encounter (ICD-10 - Z02.9) Mar, Routine physical examination (ICD-10 - Z00.00) Mar, Screening for tuberculosis (ICD-10 - Z11.1) PLAN OF TREATMENT Treatment Notes Test Name Order Date Injection: Tuberculin Purified Protein 0.1mL Intraderm al (PPD) 2020-04-29 Next Appt Details Provider Name:Von Roper, 11:00:00 AM, [address] [place], [address], Insurance Providers Payer Name Payer Address Payer Phone Insured Name Patient Relati onship to Insured Coverage Start Date Coverage End Date [facility] [address] [facility] [phone] NABEEL DELUNA self
--- OUTSIDE RECORDS SUMMARY | 2020-06-05 13:17 | CCD ---
Author Author [facility] Organization [facility] Address Unknown Phone Unavailable Care Team Providers Care Mobile Security Specialist Name Role Phone Jorge L Sánchez MD Unavailable Unavailable Jorge L Sánchez MD Unavailable Unavailable Jorge L Sánchez MD Unavailable Unavailable Jorge L Sánchez MD Unavailable Unavailable Gonzalo, Jorge L Steve MD Unavailable Unavailable Gonazlo, A Evi TAYLOR Unavailable Unavailable Gonzalo, A Evi TAYLOR Unavailable Unavailable Gonzalo, A Evi TAYLOR Unavailable Unavailable Gonzalo, A Evi TAYLOR Unavailable Unavailable Gonzalo, A Evi TAYLOR Unavailable Unavailable Gonzalo, A Evi TAYLOR Unavailable Unavailable Gonzalo, A Evi TAYLOR Unavailable Unavailable Gonzalo, A Evi TAYLOR Unavailable Unavailable Gonzalo, A Evi TAYLOR Unavailable Unavailable Gonzalo, A Evi TAYLOR Unavailable Unavailable Gonzalo, A Evi TAYLOR Unavailable Unavailable Gonzalo, A Evi TAYLOR Unavailable Unavailable Gonzalo, A Evi TAYLOR Unavailable Unavailable Gonzalo, A Evi TAYLOR Unavailable Unavailable Gonzalo, Jorge L Steve MD Unavailable Unavailable Gonzalo, A Evi TAYLOR Unavailable Unavailable Gonzalo, A Evi TAYLOR Unavailable Unavailable Gonzalo, A Evi TAYLOR Unavailable Unavailable Gonzalo, A Evi TAYLOR Unavailable Unavailable Gonzalo, A Evi TAYLOR Unavailable Unavailable Gonzalo, A Evi TAYLOR Unavailable Unavailable Gonzalo, A Evi TAYLOR Unavailable Unavailable Gonzalo, A Evi TAYLOR Unavailable Unavailable Gonzalo, A Evi TAYLOR Unavailable Unavailable Gonzalo, A Evi TAYLOR Unavailable Unavailable Gonzalo, A Evi TAYLOR Unavailable Unavailable Gonzalo, A Evi TAYLOR Unavailable Unavailable Gonzalo, A Evi TAYLOR Unavailable Unavailable Gonzalo, A Evi TAYLOR Unavailable Unavailable Gonzalo, A Evi TAYLOR Unavailable Unavailable Gonzalo, A Evi TAYLOR Unavailable Unavailable Gonzalo, A Evi TAYLOR Unavailable Unavailable Gonzalo, A Evi TAYLOR Unavailable Unavailable Gonzalo, A Evi TAYLOR Unavailable Unavailable Gonzalo, A Evi TAYLOR Unavailable Unavailable Gonzalo, A Evi TAYLOR Unavailable Unavailable Gonzalo, A Evi TAYLOR Unavailable Unavailable Gonzalo, A Evi TAYLOR Unavailable Unavailable Gonzalo, A Evi TAYLOR Unavailable Unavailable Gonzalo, A Evi TAYLOR Unavailable Unavailable Gonzalo, A Evi TAYLOR Unavailable Unavailable Gonzalo, A Evi TAYLOR Unavailable Unavailable Gonzalo, A Evi TAYLOR Unavailable Unavailable Gonzalo, A Evi TAYLOR Unavailable Unavailable Gonzalo, Jorge L Steve MD Unavailable Unavailable Gonzalo, Jorge L Steve MD Unavailable Unavailable Gonzalo, Jorge L Steve MD Unavailable Unavailable Gonzalo, A Evi TAYLOR Unavailable Unavailable Gonzalo, A Evi TAYLOR Unavailable Unavailable Gonzalo, A Evi TAYLOR Unavailable Unavailable Gonzalo, A Evi TAYLOR Unavailable Unavailable Gonzalo, A Evi TAYLOR Unavailable Unavailable Gonzalo, A Evi TAYLOR Unavailable Unavailable Gonzalo, A Evi TAYLOR Unavailable Unavailable Gonzalo, A Evi TAYLOR Unavailable Unavailable Gonzalo, A Evi TAYLOR Unavailable Unavailable Gonzalo, A Evi TAYLOR Unavailable Unavailable Gonzalo, A Evi TAYLOR Unavailable Unavailable Gonzalo, A Evi TAYLOR Unavailable Unavailable Gonzalo, Jorg eL Steve MD Unavailable Unavailable Gonzalo, Jorge L Steve MD Unavailable Unavailable Gonzalo, A Evi TAYLOR Unavailable Unavailable Gonzalo, A Evi TAYLOR Unavailable Unavailable Gonzalo, A Evi TAYLOR Unavailable Unavailable Gonzalo, A Evi TAYLOR Unavailable Unavailable Gonzalo, A Evi TAYLOR Unavailable Unavailable Gonzalo, A Evi TAYLOR Unavailable Unavailable Gonzalo, A Evi TAYLOR Unavailable Unavailable Gonzalo, A Evi TAYLOR Unavailable Unavailable Gonzalo, A Evi TAYLOR Unavailable Unavailable Dille, E Dara DDS Unavailable Unavailable Dille, E Dara DDS Unavailable Unavailable Dille, E Dara DDS Unavailable Unavailable Dille, E Dara DDS Unavailable Unavailable Dewey, Giselle Orrey PA Unavailable Unavailable Dewey, J Tania PA Unavailable Unavailable Dewey, J Tania PA Unavailable Unavailable Dewey, J Tania PA Unavailable Unavailable Dewey, J Tania PA Unavailable Unavailable Dewey, J Tania PA Unavailable Unavailable Dewey, J Tania PA Unavailable Unavailable Dewey, J Tania PA Unavailable Unavailable Dewey, J Tania PA Unavailable Unavailable Dewey, J Tania PA Unavailable Unavailable Dewey, J Tania PA Unavailable Unavailable Dewey, J Tania PA Unavailable Unavailable Dewey, J Tania PA Unavailable Unavailable Dewey, J Tania PA Unavailable Unavailable Dewey, J Tania PA Unavailable Unavailable Dewey, J Tania PA Unavailable Unavailable Dewey, J Tania PA Unavailable Unavailable Dewey, J Tania PA Unavailable Unavailable Dewey, J Tania PA Unavailable Unavailable Dewey, J Tania PA Unavailable Unavailable Dewey, J Tania PA Unavailable Unavailable Dewey, J Tania PA Unavailable Unavailable Cipriano, Thuy Dara SANDER AND POLISHER Unavailable Unavailable Cipriano, Thuy Dara SANDER AND POLISHER Unavailable Unavailable Cipriano, Thuy Dara SANDER AND POLISHER Unavailable Unavailable Cipriano, Thuy Dara SANDER AND POLISHER Unavailable Unavailable Cipriano, Thuy Dara SANDER AND POLISHER Unavailable Unavailable Cipriano, Thuy Dara SANDER AND POLISHER Unavailable Unavailable Cipriano, Thuy Dara SANDER AND POLISHER Unavailable Unavailable Cipriano, Thuy Dara SANDER AND POLISHER Unavailable Unavailable Cipriano, Thuy Dara SANDER AND POLISHER Unavailable Unavailable Cipriano, Thuy Dara SANDER AND POLISHER Unavailable Unavailable Re-disclosure Warning The records that you are about to access may contain information from federally-assisted alcohol or drug abuse programs. If such information is present, then the following federally mandated warning applies: This information has been disclosed to you from records protected by federal confidentiality rules (42 CFR part 2). The federal rules prohibit you from making any further disclosure of this information unless further disclosure is expressly permitted by the written consent of the person to whom it pertains or as otherwise permitted by 42 CFR part 2. A general authorization for the release of medical or other information is NOT sufficient for this purpose. The Federal rules restrict any use of the information to criminally investigate or prosecute any alcohol or drug abuse patient.The records that you are about to access may contain highly sensitive health information, the redisclosure of which is protected by Article 27-F of the [facility] Public Health law. If you continue you may have access to information: Regarding HIV / AIDS; Provided by facilities licensed or operated by the [facility] Office of Mental Health; or Provided by the [facility] Office for People With Developmental Disabilities. If such information is present, then the following [facility] mandated warning applies: This information has been disclosed to you from confidential records which are protected by state law. State law prohibits you from making any further disclosure of this information without the specific written consent of the person to whom it pertains, or as otherwise permitted by law. Any unauthorized further disclosure in violation of state law may result in a fine or [place] health [facility] sentence or both. A general authorization for the release of medical or other information is NOT sufficient authorization for further disc losure. Family History Family Member Name Family Member Gender Family Member Status Date o f Status Description Data Source(s) Unknown Male Diagnosis 01/21/2016 12:00:00 AM EDT Next[facility] ([facility]) Unknown Male Diagnosis 01/21/2016 12:00:00 AM EDT [facility] ([facility]) Encounters Encounter Providers Location Date Indications Data Source(s ) Outpatient [address] [facility], [facility] [address] 04/28/2020 12:00:00 AM EST eCW1 ([facility]) Unknown [address] [facility] [place] [address] 04/27/2020 12:00:00 AM EST eCW1 ([facility]) Attender: Evi Sánchez MD, PPNCETHAN [place] 1 06/10/2019 11:35:00 AM EST - 04/09/2020 11:35:00 AM EST [facility] ([facility]) Outpatient [address] [facility] [address] 02/20/2020 12:00:00 AM [email or web address] Outpatient [address] [facility] [address] 02/18/2020 12:00:00 AM EDT eCW1 ([facility]) Unknown [address] [facility] [address] 02/18/2020 12:00:00 AM EDT eCW1 ([facility]) Attender: Dara GONZALEZ [place] 0 10/30/2019 01:50:00 PM EDT - 10/30/2019 01:50:00 PM EDT Encounter for test, result negativeEncounter for surveillance of injectable contraceptive NextGen ([facility]) Encounter for test, result neg ative Encounter for surveillance of injectable contraceptive Unknown [address] [facility] [address] 10/14/2019 12:00:00 AM EDT eCW1 ([facility]) Unknown [address] [facility] [address] 10/11/2019 12:00:00 AM EDT eCW1 ([facility]) Outpatient [address] [facility] [place] [address] 10/09/2019 12:00:00 AM EDT eCW1 ([facility]) [facility]patient [facility]/08/2019 07:56:32 P M EDT [facility] [address] [place] [address] 09/19/2019 12:00:00 AM EDT [email or web address] Attender: Evi GONZALEZ [place] 08/2019 08:36:00 AM EDT - 09/03/2019 08:36:00 AM EDT NextGen ([facility]) OutpatientOFFICE VISIT, EST Attender: Tania GONZALEZ [facility] 08/14/2019 02:00:00 PM EDT - 08/14/2019 02:00:00 PM EDT Encounter for test, result negativeHuman immunodeficiency virus [HIV] counselingEncounter for initial prescription of injectable contracepEncounter for oth general cnsl and advice on contraceptionOther sex counseling NextGen ([facility]) Encounter for test, result neg ative Human immunodeficiency virus [HIV] couns eling Encounter for initial prescription of in jectable contracep Encounter for oth general cnsl and advic e on contraception Other sex counseling Attender: Evi Sánchez MD [facility] 01/2020 09:55:00 AM EDT - 08/09/2019 09:55:00 AM EDT [facility] ([facility]) [address] [place] [address] 07/19/2019 12:00:00 AM EDT [email or web address] [address] [place] [address] 07/19/2019 12:00:00 AM EDT [facility]CW1 ([email or web address] [address] [place] [address] 07/17/2019 12:00:00 AM EDT [facility]CW1 ([email or web address] [address] [place] [address] 07/16/2019 12:00:00 AM EDT [facility]CW1 ([email or web address] [address] [place] [address] 07/16/2019 12:00:00 AM EDT [facility] [place] [address] [place] [address] 06/27/2019 12:00:00 AM EST [email or web address] Outpatient Attender: Dara CASTANO 06/25/2019 09:01:08 P M EST [address] [place] [address] 06/19/2019 12:00:00 AM EST eCW1 ([facility]) Attender: Tania RICARDO PPNCNY [place] 12/2018 03:30:00 PM EST - 04/08/2019 03:30:00 PM EST Body mass index (BMI) 32.0-32.9, adultEn counter for surveillance of injectable contraceptive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) w/o abn findingsHigh risk heterosexual behaviorEncntr screen for infections w sexl mode of transmissHuman immunodeficiency virus [HIV] counselingEncounter for oth general cnsl and advice on contraceptionOther sex counseling NextGen ([facility]) Body mass index (BMI) 32.0-32.9, adult Encounter for surveillance of injectable contraceptive 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) w/o abn findings High risk heterosexual behavior Encntr screen for infections w sexl mode of transmiss Human immunodeficiency virus [HIV] couns eling Encounter for oth general cnsl and advic e on contraception Other sex counseling Medications Medication Brand Name Start Date Product Form Dose Route Admi nistrative Instructions Pharmacy Instructions Status Indications Reaction Description Data Source(s) 100 mg 04/09/2020 12:00:00 AM EST capsule 14 TAKE ONE CAPSULE BY MOUTH TWICE A DAY FOR 7 DAYS TAKE ONE CAPSULE BY MOUTH TWICE A DAY FOR 7 DAYS SOLD: 04/09/2020 [facility] 115-21 mcg/actuation 02/20/2020 12:00:00 AM EDT HFA aerosol inhaler 12 INHALE TWO PUFFS BY MOUTH TWICE A DAY INHALE TWO PUFFS BY MOUTH TWICE A DAY SOLD: 02/22/2020 [facility] 50 mg 02/18/2020 12:00:00 AM EDT tablet 45 TAKE ONE TABLET BY MOUTH EVERY 8 HOURS NEEDED FOR SEVERE PAIN MAXIMUM DAILY DOSE = 3 TABLETS (SHOULD LAST 30 DAYS) TAKE ONE TABLET BY MOUTH EVERY 8 HOURS A S NEEDED FOR SEVERE PAIN MAXIMUM DAILY DOSE = 3 TABLETS (SHOULD LAST 30 DAYS) SOLD: 03/21/2020 [facility] 50 mg 02/18/2020 12:00:00 AM EDT tablet 45 TAKE ONE TABLET BY MOUTH EVERY 8 HOURS NEEDED FOR SEVERE PAIN MAXIMUM DAILY DOSE = 3 TABLETS (SHOULD LAST 30 DAYS) TAKE ONE TABLET BY MOUTH EVERY 8 HOURS A S NEEDED FOR SEVERE PAIN MAXIMUM DAILY DOSE = 3 TABLETS (SHOULD LAST 30 DAYS) SOLD: 02/22/2020 [facility] 115-21 mcg/actuation 12/30/2019 12:00:00 AM EDT HFA aerosol inhaler 12 INHALE TWO PUFFS BY MOUTH TWICE A DAY INHALE TWO PUFFS BY MOUTH TWICE A DAY SOLD: 01/01/2020 [facility] 90 mcg/actuation 12/30/2019 12:00:00 AM EDT HFA aerosol inha ler 18 INHALE ONE PUFF BY MOUTH EVERY 4 HOURS NEEDED INHALE ONE PUFF BY MOUTH EVERY 4 HOURS NEEDED SOLD: 01/01/2020 [facility] 4 mg 12/04/2019 12:00:00 AM EDT tablet 30 TAKE ONE TABLET BY MOUTH AT BEDTIME TAKE ONE TABLET BY MOUTH AT BEDTIME SOLD: 12/05/2019 [facility] 4 mg 12/04/2019 12:00:00 AM EDT tablet 30 TAKE ONE TABLET BY MOUTH AT BEDTIME TAKE ONE TABLET BY MOUTH AT BEDTIME SOLD: 02/05/2020 [facility] tizanidine 4 MG Oral Tablet TIZANIDINE HCL 12/04/2019 12:00:00 AM EDT tablet 30 TAKE ONE TABLET BY MOUTH AT BEDTIME TAKE ONE TABLET BY MOUTH AT BEDTIME SOLD: 05/21/2020 [facility] 50 mg 12/03/2019 12:00:00 AM EDT tablet 30 TAKE ONE TABLET BY MOUTH AT BEDTIME NEEDED FOR PAIN MAXIMUM DAILY DOSE = ONE TABLET TAKE ONE TABLET BY MOUTH AT BEDTIME NEEDED FOR PAIN MAXIMUM DAILY DOSE = ONE TABLET SOLD: 01/01/2020 [facility] 50 mg 12/03/2019 12:00:00 AM EDT tablet 30 TAKE ONE TABLET BY MOUTH AT BEDTIME NEEDED FOR PAIN MAXIMUM DAILY DOSE = ONE TABLET TAKE ONE TABLET BY MOUTH AT BEDTIME NEEDED FOR PAIN MAXIMUM DAILY DOSE = ONE TABLET SOLD: 12/05/2019 [facility] 50 mg 12/03/2019 12:00:00 AM EDT tablet 30 TAKE ONE TABLET BY MOUTH AT BEDTIME NEEDED FOR PAIN MAXIMUM DAILY DOSE = ONE TABLET TAKE ONE TABLET BY MOUTH AT BEDTIME NEEDED FOR PAIN MAXIMUM DAILY DOSE = ONE TABLET SOLD: 02/05/2020 [facility] 115-21 mcg/actuation 11/03/2019 12:00:00 AM EDT HFA aerosol inhaler 12 INHALE TWO PUFFS BY MOUTH TWICE A DAY INHALE TWO PUFFS BY MOUTH TWICE A DAY SOLD: 11/03/2019 [facility] 115-21 mcg/actuation 11/03/2019 12:00:00 AM EDT HFA aerosol inhaler 12 INHALE TWO PUFFS BY MOUTH TWICE A DAY INHALE TWO PUFFS BY MOUTH TWICE A DAY SOLD: 05/21/2020 [facility] 50 mg 10/14/2019 12:00:00 AM EDT tablet 27 TAKE ONE TABLET BY MOUTH EVERY 8 HOURS NEEDED FOR SEVERE PAIN EPISODES MAXIMUM DAILY DOSE = THREE TABLETS TAKE ONE TABLET BY MOUTH EVERY 8 HOURS NEEDED FOR SEVERE PAIN EPISODES MAXIMUM DAILY DOSE = THREE TABLETS SOLD: 11/20/2019 [facility] 50 mg 10/14/2019 12:00:00 AM EDT tablet 21 TAKE ONE TABLET BY MOUTH EVERY 8 HOURS NEEDED FOR SEVERE PAIN EPISODES MAXIMUM DAILY DOSE = THREE TABLETS TAKE ONE TABLET BY MOUTH EVERY 8 HOURS NEEDED FOR SEVERE PAIN EPISODES MAXIMUM DAILY DOSE = THREE TABLETS SOLD: 10/21/2019 [facility] 50 mg 10/14/2019 12:00:00 AM EDT tablet 21 TAKE ONE TABLET BY MOUTH EVERY 8 HOURS NEEDED FOR SEVERE PAIN EPISODES MAXIMUM DAILY DOSE = THREE TABLETS TAKE ONE TABLET BY MOUTH EVERY 8 HOURS NEEDED FOR SEVERE PAIN EPISODES MAXIMUM DAILY DOSE = THREE TABLETS SOLD: 11/03/2019 [facility] 90 mcg/actuation 09/27/2019 12:00:00 AM EDT HFA aerosol inha ler 8 INHALE 1 PUFF BY MOUTH EVERY 4 HOURS NEEDED INHALE 1 PUFF BY MOUTH EVERY 4 HOURS NEEDED SOLD: 09/30/2019 [facility] 115-21 mcg/actuation 07/19/2019 12:00:00 AM EDT HFA aerosol inhaler 12 INHALE 2 PUFFS BY MOUTH TWO TIMES A DAY INHALE 2 PUFFS BY MOUTH TWO TIMES A DAY SOLD: 07/20/2019 [facility] 90 mcg/actuation 07/19/2019 12:00:00 AM EDT HFA aerosol inha ler 8 INHALE 1 PUFF BY MOUTH EVERY 4 HOURS NEEDED INHALE 1 PUFF BY MOUTH EVERY 4 HOURS NEEDED SOLD: 07/20/2019 [facility] 875 mg 07/16/2019 12:00:00 AM EDT tablet 6 TAKE ONE TABLET BY MOUTH EVERY 12 HOURS TAKE ONE TABLET BY MOUTH EVERY 12 HOURS SOLD: 07/16/2019 [facility] 4 mg 07/16/2019 12:00:00 AM EDT tablet 30 TAKE ONE TABLET BY MOUTH THREE TIMES A DAY NEEDED TAKE ONE TABLET BY MOUTH THREE TIMES A DAY NEEDED S OLD: 07/16/2019 [facility] tramadol hydrochloride 50 MG Oral Tablet TRAMADOL HCL 07/16/2019 12:00:00 AM EDT tablet 30 TAKE ONE TABLET BY MOUTH EVERY 6 HOURS NEEDED MAXIMUM DAILY DOSE = 4 TABLETS TAKE ONE TABLET BY MOUTH EVERY 6 HOURS A S NEEDED MAXIMUM DAILY DOSE = 4 TABLETS SOLD: 07/16/2019 [facility] tramadol hydrochloride 50 MG Oral Tablet Tramadol HCl 50 MG Tramadol HCl 50 MG 07/16/2019 12:00:00 AM EDT 1.0 {tablet_as_needed} suspended Tramadol HCl 50 MG eCW1 ([facility]) tizanidine 4 MG Oral Tablet Tizanidine HCl 4 MG Tizanidine H Cl 4 MG 07/16/2019 12:00:00 AM EDT active 1 tablet as needed eCW1 ([facility]) Naproxen 500 MG Oral Tablet Naproxen 500 MG 07/16/2019 12:00:00 AM EDT active Naproxen 500 MG eCW1 ([facility]) 500 mg 07/16/2019 12:00:00 AM EDT tablet 20 TAKE ONE TABLET BY MOUTH EVERY 12 HOURS NEEDED WITH FOOD OR MILK TAKE ONE TABLET BY MOUTH EVERY 12 HOURS NEEDED WITH FOOD OR MILK SOLD: 07/16/2019 [facility] tizanidine 4 MG Oral Tablet Tizanidine HCl 4 MG Tizanidine H Cl 4 MG 07/16/2019 12:00:00 AM EDT 1.0 {tablet_as_needed} active Tizanidine HCl 4 MG eCW1 ([facility]) Naproxen 500 MG Oral Tablet Naproxen 500 MG 07/16/2019 12:00:00 AM EDT active 1 tablet with food or milk a s needed eCW1 ([facility]) tramadol hydrochloride 50 MG Oral Tablet Tramadol HCl 50 MG Tramadol HCl 50 MG 07/16/2019 12:00:00 AM EDT 1.0 {tablet_as_needed} suspended Tramadol HCl 50 MG eCW1 ([facility]) Amoxicillin 875 MG Oral Tablet Amoxicillin 875 MG 07/16/2019 12:00: 00 AM EDT 1.0 {tablet} suspended Amoxicillin 875 M G eCW1 ([facility]) tizanidine 4 MG Oral Tablet Tizanidine HCl 4 MG Tizanidine H Cl 4 MG 07/16/2019 12:00:00 AM EDT 1.0 {tablet_as_needed} active Tizanidine HCl 4 MG eCW1 ([facility]) tizanidine 4 MG Oral Tablet Tizanidine HCl 4 MG Tizanidine H Cl 4 MG 07/16/2019 12:00:00 AM EDT 1.0 {tablet_as_needed} active Tizanidine HCl 4 MG eCW1 ([facility]) tramadol hydrochloride 50 MG Oral Tablet Tramadol HCl 50 MG Tramadol HCl 50 MG 07/16/2019 12:00:00 AM EDT 1.0 {tablet_as_needed} suspended Tramadol HCl 50 MG eCW1 ([facility]) Amoxicillin 875 MG Oral Tablet Amoxicillin 875 MG 07/16/2019 12:00: 00 AM EDT active 1 tablet eCW1 ([facility]) Amoxicillin 875 MG Oral Tablet Amoxicillin 875 MG 07/16/2019 12:00: 00 AM EDT 1.0 {tablet} suspended Amoxicillin 875 M G eCW1 ([facility]) Naproxen 500 MG Oral Tablet Naproxen 500 MG 07/16/2019 12:00:00 AM EDT active Naproxen 500 MG eCW1 ([facility]) tramadol hydrochloride 50 MG Oral Tablet Tramadol HCl 50 MG Tramadol HCl 50 MG 07/16/2019 12:00:00 AM EDT 1.0 {tablet_as_needed} suspended Tramadol HCl 50 MG eCW1 ([facility]) Naproxen 500 MG Oral Tablet Naproxen 500 MG 07/16/2019 12:00:00 AM EDT suspended Naproxen 500 MG eCW1 ([facility]) tramadol hydrochloride 50 MG Oral Tablet Tramadol HCl 50 MG Tramadol HCl 50 MG 07/16/2019 12:00:00 AM EDT active 1 tablet as needed eCW1 ([facility]) tramadol hydrochloride 50 MG Oral Tablet Tramadol HCl 50 MG Tramadol HCl 50 MG 07/16/2019 12:00:00 AM EDT 1.0 {tablet_as_needed} active Tramadol HCl 50 MG eCW1 ([facility]) tramadol hydrochloride 50 MG Oral Tablet Tramadol HCl 50 MG Tramadol HCl 50 MG 07/16/2019 12:00:00 AM EDT 1.0 {tablet_as_needed} suspended Tramadol HCl 50 MG eCW1 ([facility]) tizanidine 4 MG Oral Tablet Tizanidine HCl 4 MG Tizanidine H Cl 4 MG 07/16/2019 12:00:00 AM EDT 1.0 {tablet_as_needed} active Tizanidine HCl 4 MG eCW1 ([facility]) tramadol hydrochloride 50 MG Oral Tablet Tramadol HCl 50 MG Tramadol HCl 50 MG 07/16/2019 12:00:00 AM EDT 1.0 {tablet_as_needed} suspended Tramadol HCl 50 MG eCW1 ([facility]) tizanidine 4 MG Oral Tablet Tizanidine HCl 4 MG Tizanidine H Cl 4 MG 07/16/2019 12:00:00 AM EDT 1.0 {tablet_as_needed} active Tizanidine HCl 4 MG eCW1 ([facility]) tizanidine 4 MG Oral Tablet Tizanidine HCl 4 MG Tizanidine H Cl 4 MG 07/16/2019 12:00:00 AM EDT 1.0 {tablet_as_needed} active Tizanidine HCl 4 MG eCW1 ([facility]) Amoxicillin 875 MG Oral Tablet Amoxicillin 875 MG 07/16/2019 12:00: 00 AM EDT 1.0 {tablet} suspended Amoxicillin 875 M G eCW1 ([facility]) Amoxicillin 875 MG Oral Tablet Amoxicillin 875 MG 07/16/2019 12:00: 00 AM EDT 1.0 {tablet} suspended Amoxicillin 875 M G eCW1 ([facility]) tramadol hydrochloride 50 MG Oral Tablet Tramadol HCl 50 MG Tramadol HCl 50 MG 07/16/2019 12:00:00 AM EDT 1.0 {tablet_as_needed} active Tramadol HCl 50 MG eCW1 ([facility]) tizanidine 4 MG Oral Tablet Tizanidine HCl 4 MG Tizanidine H Cl 4 MG 07/16/2019 12:00:00 AM EDT 1.0 {tablet_as_needed} suspended Tizanidine HCl 4 MG eCW1 ([facility]) Naproxen 500 MG Oral Tablet Naproxen 500 MG 07/16/2019 12:00:00 AM EDT active Naproxen 500 MG eCW1 ([facility]) tizanidine 4 MG Oral Tablet Tizanidine HCl 4 MG Tizanidine H Cl 4 MG 07/16/2019 12:00:00 AM EDT 1.0 {tablet_as_needed} suspended Tizanidine HCl 4 MG eCW1 ([facility]) 90 mcg/actuation 06/17/2019 12:00:00 AM EST HFA aerosol inha ler 8 INHALE 2 PUFFS BY MOUTH FOUR TIMES A DAY NEEDED INHALE 2 PUFFS BY MOUTH FOUR TIMES A DAY NEEDED SOLD: 06/22/2019 [facility] 115-21 mcg/actuation 05/07/2019 12:00:00 AM EST HFA aerosol inhaler 12 INHALE TWO PUFFS BY MOUTH TWICE A DAY INHALE TWO PUFFS BY MOUTH TWICE A DAY SOLD: 06/22/2019 [facility] 90 mcg/actuation 05/07/2019 12:00:00 AM EST HFA aerosol inha ler 8 INHALE 2 PUFFS BY MOUTH FOUR TIMES A DAY NEEDED INHALE 2 PUFFS BY MOUTH FOUR TIMES A DAY NEEDED SOLD: 05/07/2019 [facility] 115-21 mcg/actuation 05/07/2019 12:00:00 AM EST HFA aerosol inhaler 12 INHALE TWO PUFFS BY MOUTH TWICE A DAY INHALE TWO PUFFS BY MOUTH TWICE A DAY SOLD: 09/30/2019 [facility] 115-21 mcg/actuation 05/07/2019 12:00:00 AM EST HFA aerosol inhaler 12 INHALE TWO PUFFS BY MOUTH TWICE A DAY INHALE TWO PUFFS BY MOUTH TWICE A DAY SOLD: 05/07/2019 [facility] medroxyprogesterone acetate 150 MG/ML In jectable Suspension medroxyprogesterone 150 mg/mL intramuscular suspension medroxyprogesterone 150 mg/mL intramuscu lar suspension 04/08/2019 12:00:00 AM EST active IM every 10-13 weeks [facility] ([facility]) medroxyprogesterone acetate 150 MG/ML In jectable Suspension medroxyprogesterone 150 mg/mL intramuscular suspension medroxyprogesterone 150 mg/mL intramuscu lar suspension 01/17/2019 12:00:00 AM EDT complet ed IM every 10-13 weeks [facility] ([facility]) tramadol hydrochloride 50 MG Oral Tablet tramadol 50 m g tablet tramadol 50 mg tablet completed NextGen ( [facility]) Insurance Providers Payer name Policy type / Coverage type Policy ID Covered republican ID Covered republican's relationship to hoskins Policy [place] Plan Information [facility] [id number] SP [id number] [facility] O [id number] S [id number] [employer] BCBS B [id number] O VYS [id number] [facility] [id number] SP [id number] [place] 306/806 [id number] SP [id number] [facility] [id number] self [id number] [place] 306/806 [id number] SP [id number] [place] PPO 302/307 [id number] SP [id number] [place] 302/307 [id number] SP [id number] [facility] P [id number] S [id number] Medicaid S [id number] S [id number] [facility] [id number] SP [id number] [facility] [id number] SP [id number] [facility] Medicaid Commercial [id number] Self [id number] [facility]-Medicaid [id number] ANS-Medicaid [id number] MEDICAID [id number] SP [id number] ANSI-Medicaid [id number] ANSI-Medicaid [id number] [facility] P [id number] S [id number] D [facility] P [id number] S [id number] ANSI-Medicaid [id number] ANSI-Medicaid [id number] ANSI-Medicaid [id number] ANSI-Medicaid [id number] ANSI-Medicaid [id number] ANSI-Medicaid [id number] ANSI-Medicaid [id number] ANSI-Medicaid [id number] ANSI-Medicaid [id number] ANSI-Medicaid [id number] SELF PAY ONLY UNAVAILABLE SP UNAV AILABLE MEDICAID [place] [id number] S [id number] [facility] [place] [facility] [id number] [id number] PGBA [facility] [id number] 2 [id number] U [id number] Self [id number] PGBA [place] [facility] O [id number] P [id number] [facility] [id number] SP [id number] [facility] COMMUNITY PLAN [facility] [id number] SP [id number] [facility] MANAGEMENT [facility] [id number] SP [id number] [place] 306/806 [id number] SP [id number] PGBA [facility] [id number] FA2 [id number] PGBA [facility] [id number] FA2 [id number] Problems, Conditions, and Diagnoses Code Display Name Description Problem Type Effective Dates Data Source(s) M46.1 44512145 Sacroiliitis Problem 10/09/2019 12:00:00 AM EDT eCW1 ([facility]) M51.26 [id number] Protrusion of lumbar intervertebral disc Problem 10/09/2019 12:00:00 AM EDT eCW1 ([facility]) M54.41 [id number] Acute right-sided low back pain with right-sided sciatica Problem 07/16/2019 12:00:00 AM EDT eCW1 ([facility]) M54.41 671937576 Acute right-sided low back pain with right-sided sciatica Problem 07/16/2019 12:00:00 AM EDT eCW1 ([facility]) Z98.84 [id number] Status post gastric bypass for obesity Pr oblem 06/19/2019 12:00:00 AM EST eCW1 ([facility]) Z98.84 [id number] Status post gastric bypass for obesity Pr oblem 06/19/2019 12:00:00 AM EST eCW1 ([facility]) [id number] Atypical squamous cells of u ndetermined significance on cervical Papanicolaou smear Atypical squamous cells of undetermined significance on cervical Papanicolaou smear Problem 04/08/2019 12:00:00 AM EST NextG en ([facility]) Surgeries/Procedures Procedure Description Date Indications Data Source(s) Injection Or Lab Only Visit Est 08/14/19 20 12:00:00 AM EDT - 08/14/2019 12:00:00 AM EDT [facility] ([facility]) URINE TEST 08/14/2019 12:00:00 AM EDT - 08/14/2019 12:00:00 AM EDT [facility] ([facility]) NURSE ONLY DEPO INJ. RN/MEDIA SERVICES DIRECTOR Only 020 12:00:00 AM EDT - 08/14/2019 12:00:00 AM EDT [facility] ([facility]) Depo/Medroxyprogesterone Inj. 150 Mg Nurse/CA 08/14/2019 12:00:00 AM EDT - 08/14/2019 12:00:00 AM EDT [facility] ([facility]) CVR BC Ending Method HORM.INJ. 3 MOS 12:00:00 AM EDT - 08/14/2019 12:00:00 AM EDT [facility] ([facility]) CVR Shooter'S Helper.Svc. STI / H 08/14/2019 12:00:00 AM EDT - 08/14/2019 12:00:00 AM EDT [facility] ([facility]) CVR Shooter'S Helper.Svc. Other 08/14/2019 12:00:00 AM EDT - 2019 12:00:00 AM EDT [facility] ([facility]) CVR Shooter'S Helper.Svc. Nutrition 08/14/2019 12:00: 00 AM EDT - 08/14/2019 12:00:00 AM EDT [facility] ([facility]) CVR Shooter'S Helper.Svc. Contraceptive 08/14/2019 12 :00:00 AM EDT - 08/14/2019 12:00:00 AM EDT [facility] ([facility]) CVR Med.Svc. Method Initiation 0 12:00:00 AM EDT - 08/14/2019 12:00:00 AM EDT [facility] ([facility]) CVR Med.Svc. Height/Weight 08/14/2019 12 :00:00 AM EDT - 08/14/2019 12:00:00 AM EDT [facility] ([facility]) OFFICE VISIT, EST 08/14/2019 12:00:00 AM EDT - 020 12:00:00 AM EDT [facility] ([facility]) Male Condom Polyurethane 08/14/2019 12:0 0:00 AM EDT - 08/14/2019 12:00:00 AM EDT [facility] ([facility]) URINE-NO MICRO 07/16/2019 12:00:00 AM EDT eCW1 ([facility]) Results ID Date Data Source [id number] 04/14/2020 06:04:00 AM EST [facility] Name Value Range Interpretation Code Description Data Yoly rce(s) Supporting Document(s) SARS coronavirus 2 RNA [facility] This lab was ordered by [facility] and reported by [facility]. ID Date Data Source [id number] 04/07/2020 10:00:00 AM EST [facility] Name Value Range Interpretation Code Description Data Yoly rce(s) Supporting Document(s) SARS coronavirus 2 RNA [facility] This lab was ordered by [facility] and reported by [facility]. ID Date Data Source [id number] 03/31/2020 06:22:00 AM EST [facility] Name Value Range Interpretation Code Description Data Yoly rce(s) Supporting Document(s) SARS coronavirus 2 RNA [facility] This lab was ordered by [facility] and reported by [facility]. ID Date Data Source [id number] 03/24/2020 08:00:00 AM EST [facility] Name Value Range Interpretation Code Description Data Yoly rce(s) Supporting Document(s) SARS coronavirus 2 RNA [facility] This lab was ordered by [facility] and reported by [facility]. ID Date Data Source [id number] 03/19/2020 11:00:00 AM EST [facility] Name Value Range Interpretation Code Description Data Yoly rce(s) Supporting Document(s) SARS coronavirus 2 RNA [facility] This lab was ordered by [facility] and reported by [facility]. ID Date Data Source [id number] 03/10/2020 07:45:00 AM EST [facility] Name Value Range Interpretation Code Description Data Yoly rce(s) Supporting Document(s) SARS coronavirus 2 RNA [facility] This lab was ordered by [facility] and reported by [facility]. ID Date Data Source [id number] 03/03/2020 05:22:00 AM EST [facility] Name Value Range Interpretation Code Description Data Yoly rce(s) Supporting Document(s) SARS coronavirus 2 RNA [facility] This lab was ordered by [facility] and reported by [facility]. ID Date Data Source [id number] 02/27/2020 02:17:00 PM EDT [facility] Name Value Range Interpretation Code Description Data Yoly rce(s) Supporting Document(s) SARS coronavirus 2 RNA [facility] This lab was ordered by [facility] and reported by [facility]. ID Date Data Source [id number] 02/18/2020 09:28:00 AM EDT [facility] Name Value Range Interpretation Code Description Data Yoly rce(s) Supporting Document(s) SARS coronavirus 2 RNA [facility] This lab was ordered by [facility] and reported by [facility]. ID Date Data Source [id number] 02/11/2020 03:30:00 PM EDT [facility] Name Value Range Interpretation Code Description Data Yoly rce(s) Supporting Document(s) SARS coronavirus 2 RNA [facility] This lab was ordered by [facility] and reported by [facility]. ID Date Data Source [id number] 02/06/2020 09:00:00 AM EDT [facility] Name Value Range Interpretation Code Description Data Yoly rce(s) Supporting Document(s) SARS coronavirus 2 RNA [facility] This lab was ordered by [facility] and reported by [facility]. ID Date Data Source [id number] 08/14/2019 02:51:36 PM EDT [facility] ([facility]) Name Value Range Interpretation Code Description Data Yoly rce(s) Supporting Document(s) NegativeLot: [id number]: 02/28/2021 High Sensitivity Urine Test [facility] ([facility]) ID Date Data Source VITAMIN B12 LEVEL 06/19/2019 12:00:00 AM EST eCW1 ([facility]) Name Value Range Interpretation Code Description Data Yoly rce(s) Supporting Document(s) [phone] VITAMIN B12 LEVEL eCW1 ([facility]) ID Date Data Source TOTAL IRON BINDING CAPACIT 06/19/2019 12:00:00 AM EST eCW1 ( [facility]) Name Value Range Interpretation Code Description Data Yoly rce(s) Supporting Document(s) 478 250-450 TOTAL IRON BINDING CAPACI TY eCW1 ([facility]) 103 50-170 IRON (FE) eCW1 ([facility]) 21.5 13.2-45.0 PERCENT SATURATION eCW1 ([facility]) ID Date Data Source VITAMIN D 25-HYDROXY 06/19/2019 12:00:00 AM EST eCW1 ([facility]) Name Value Range Interpretation Code Description Data Yoly rce(s) Supporting Document(s) 24.9 30.0-100.0 TOTAL 25(OH) VITAMIN D eC W1 ([facility]) ID Date Data Source RBC FOLATE PROFILE 06/19/2019 12:00:00 AM EST eCW1 ([facility]) Name Value Range Interpretation Code Description Data Yoly rce(s) Supporting Document(s) 39.9 36.0-47.0 HEMATOCRIT eCW1 ([facility]) ID Date Data Source Comprehensive Metabolic Profile (CMP) 06/19/2019 12:00:00 AM EST eCW1 ([facility]) Name Value Range Interpretation Code Description Data Oyly rce(s) Supporting Document(s) 94 70-100 GLUCOSE, FASTING eCW1 ([facility]) 17 7-18 BLOOD UREA NITROGEN eCW1 ([facility]) 0.78 0.55-1.30 CREATININE FOR GFR eCW1 ([facility]) 141 136-145 SODIUM LEVEL eCW1 ([facility]) 111 98-107 CHLORIDE LEVEL eCW1 ([facility]) > 60.0 >60 GLOMERULAR FILTRATION RATE eCW 1 ([facility]) 4.3 3.5-5.1 POTASSIUM SERUM eCW1 ([facility]) 27 21-32 CARBON DIOXIDE LEVEL eCW1 ([facility]) 15 12-78 ALT/SGPT eCW1 ([facility]) 12 7-37 AST/SGOT eCW1 ([facility]) 9.1 8.5-10.1 CALCIUM LEVEL eCW1 ([facility]) 4.3 3.2-5.2 ALBUMIN eCW1 ([facility]) 0.4 0.2-1.0 BILIRUBIN,TOTAL eCW1 ([facility]) 7.3 6.4-8.2 TOTAL PROTEIN eCW1 ([facility]) 59 45-117 ALKALINE PHOSPHATASE eCW1 ([facility]) 1.43 1.00-1.93 ALBUMIN/GLOBULIN RATIO eCW1 ([facility]) ID Date Data Source CBC - Complete Blood Count 06/19/2019 12:00:00 AM EST eCW1 ( [facility]) Name Value Range Interpretation Code Description Data Yoly rce(s) Supporting Document(s) 6.8 4.0-10.0 WHITE BLOOD COUNT eCW1 ([facility]) 12.5 12.0-15.5 HEMOGLOBIN eCW1 ([facility]) 39.9 36.0-47.0 HEMATOCRIT eCW1 ([facility]) 4.82 4.00-5.40 RED BLOOD COUNT eCW1 ([facility]) 31.3 32.0-36.5 MEAN CORPUSCULAR HGB CONC eCW1 ([facility]) 13.2 11.5-14.5 RED CELL DISTRIBUTION WID TH eCW1 ([facility]) 25.9 27.0-33.0 MEAN CORPUSCULAR HEMOGLOB IN eCW1 ([facility]) 82.8 80.0-96.0 MEAN CORPUSCULAR VOLUME e CW1 ([facility]) 305 150-450 PLATELET COUNT, AUTOMATED eCW1 ([facility]) Procedure Social History Code Duration Value Status Description Data Source(s ) Smoking 04/28/2020 12:00:00 AM EST Former Smoker completed Former Smoker eCW1 ([facility]) Smoking 04/28/2020 12:00:00 AM EST Former Smoker completed Former Smoker eCW1 ([facility]) Smoking 02/20/2020 12:00:00 AM EDT Former Smoker completed Former Smoker eCW1 ([facility]) Smoking 02/20/2020 12:00:00 AM EDT Former Smoker completed Former Smoker eCW1 ([facility]) Smoking 02/18/2020 12:00:00 AM EDT Former Smoker completed Former Smoker eCW1 ([facility]) Smoking 10/09/2019 12:00:00 AM EDT Former Smoker completed Former Smoker eCW1 ([facility]) Smoking 10/09/2019 12:00:00 AM EDT Former Smoker completed Former Smoker eCW1 ([facility]) Smoking 10/09/2019 12:00:00 AM EDT Former Smoker completed Former Smoker eCW1 ([facility]) Smoking 09/03/2019 12:00:00 AM EDT Never smoker completed Never s jerardo [facility] ([facility]) Vital Signs ID Date Data Source UNK Name Value Range Interpretation Code Description Data Source(s) Diastolic blood pressure 70 mm[Hg] 70 mm[Hg] eCW1 ([facility]) Systolic blood pressure 124 mm[Hg] 124 mm[Hg] e CW1 ([facility]) Body temperature 97.6 [degF] 97.6 [degF] eCW1 ( [facility]) Respiratory rate 18 /min 18 /min eCW1 ([facility]) Heart rate 88 /min 88 /min eCW1 ([facility]) Body mass index (BMI) [Ratio] 41.03 kg/m2 41.03 kg/m2 eCW1 ([facility]) Body height [in_i] eCW1 ([facility]) Body weight 286 [lb_av] 286 [lb_av] eCW1 ([facility]) Diastolic blood pressure 74 mm[Hg] 74 mm[Hg] eCW1 ([facility]) Systolic blood pressure 121 mm[Hg] 121 mm[Hg] e CW1 ([facility]) Body temperature 97.4 [degF] 97.4 [degF] eCW1 ( [facility]) Respiratory rate 16 /min 16 /min eCW1 ([facility]) Heart rate 82 /min 82 /min eCW1 ([facility]) Body mass index (BMI) [Ratio] 41.52 kg/m2 41.52 kg/m2 W1 ([facility]) Body height [in_i] eCW1 ([facility]) Body weight 289.4 [lb_av] 289.4 [lb_av] eCW1 ([facility]) Diastolic blood pressure 72 mm[Hg] 72 mm[Hg] eCW1 ([facility]) Systolic blood pressure 121 mm[Hg] 121 mm[Hg] e CW1 ([facility]) Body temperature 96.6 [degF] 96.6 [degF] eCW1 ( [facility]) Respiratory rate 18 /min 18 /min eCW1 ([facility]) Heart rate 71 /min 71 /min eCW1 ([facility]) Body mass index (BMI) [Ratio] 41.81 kg/m2 41.81 kg/m2 eCW1 ([facility]) Body height [in_i] eCW1 ([facility]) Body weight 291.4 [lb_av] 291.4 [lb_av] eCW1 ([facility]) Diastolic blood pressure 88 mm[Hg] 88 mm[Hg] eCW1 ([facility]) Systolic blood pressure 147 mm[Hg] 147 mm[Hg] e CW1 ([facility]) Body temperature 98.0 [degF] 98.0 [degF] eCW1 ( [facility]) Respiratory rate 18 /min 18 /min eCW1 ([facility]) Heart rate 77 /min 77 /min eCW1 ([facility]) Body mass index (BMI) [Ratio] 37.76 kg/m2 37.76 kg/m2 eCW1 ([facility]) Body height [in_i] eCW1 ([facility]) Body weight 263.2 [lb_av] 263.2 [lb_av] eCW1 ([facility]) Body mass index (BMI) [Ratio] 33.91 kg/m2 Overweight 33.91 kg/m2 [facility] ([facility]) Body weight 113.398 kg 113.398 kg [facility] ([facility]) Body height 182.88 cm 182.88 cm [facility] ([facility]) Diastolic blood pressure 73 mm[Hg] 73 mm[Hg] eCW1 ([facility]) Systolic blood pressure 106 mm[Hg] 106 mm[Hg] e CW1 ([facility]) Body temperature 97.8 [degF] 97.8 [degF] eCW1 ( [facility]) Respiratory rate 18 /min 18 /min eCW1 ([facility]) Heart rate 100 /min 100 /min eCW1 ([facility]) Body mass index (BMI) [Ratio] 35.87 kg/m2 35.87 kg/m2 eCW1 ([facility]) Body height [in_us] eCW1 ([facility]) Body weight Measured 250 [lb_av] 250 [lb_av] eC W1 ([facility]) Patient Treatment Plan of Care Planned Activity Planned Date Details Description Data Source (s) tizanidine 4 MG Oral Tablet 07/16/2019 12:00:00 AM EDT eCW1 ([facility]) tramadol hydrochloride 50 MG Oral Tablet 07/16/2019 12:00:00 AM EDT eCW1 ([facility]) tizanidine 4 MG Oral Tablet 07/16/2019 12:00:00 AM EDT eCW1 ([facility]) Amoxicillin 875 MG Oral Tablet 07/16/2019 12:00:00 AM EDT eCW1 ([facility]) Naproxen 500 MG Oral Tablet 07/16/2019 12:00:00 AM EDT eCW1 ([facility]) medroxyprogesterone acetate 150 MG/ML Injectable Suspe nsion 04/08/2019 12:00:00 AM EST [facility] medroxyprogesterone acetate 150 MG/ML Injectable Suspe nsion 01/17/2019 12:00:00 AM EDT [facility] tramadol hydrochloride 50 MG Oral Tablet [facility] ([facility])
[2020-06-05] MEDS ORDERED: ACETAMINOPHEN 325 MG TAB PO ONE (14:15)
--- OUTSIDE RECORDS SUMMARY | 2020-06-05 14:17 | CCD ---
Author Author [facility] Organization [facility] Address Unknown Phone Unavailable Care Team Providers Care Dredge Mate Name Role Phone Jorge L Sánchez MD Unavailable Unavailable Gonzalo, [...] Jorge L Steve MD Unavailable Unavailable Gonazlo, Jorge L Steve MD Unavailable Unavailable Gonzalo, [...] Unavailable Dille, E Dara DDS Unavailable Unavailable [place], J Tania PA Unavailable Unavailable [place], J Tania PA Unavailable Unavailable [place], J Tania PA Unavailable Unavailable [place], J Tania PA Unavailable Unavailable [place], J Tania PA Unavailable Unavailable [place], J Tania PA Unavailable Unavailable [place], J Tania PA Unavailable Unavailable [place], J Tania PA Unavailable Unavailable [place], J Tania PA Unavailable Unavailable [place], J Tania PA Unavailable Unavailable [place], J Tania PA Unavailable Unavailable [place], J Tania PA Unavailable Unavailable [place], J Tania PA Unavailable Unavailable [place], J Tania PA Unavailable Unavailable [place], J Tania PA Unavailable Unavailable [place], J Tania PA Unavailable Unavailable [place], J Tania PA Unavailable Unavailable [place], J Tania PA Unavailable Unavailable [place], J Tania PA Unavailable Unavailable [place], J Tania PA Unavailable Unavailable [place], J Tania PA Unavailable Unavailable [place], J Tania PA Unavailable Unavailable Cipriano, Thuy Dara MAINTENANCE TEAM LEADER Unavailable Unavailable Cipriano, Thuy Dara MAINTENANCE TEAM LEADER Unavailable Unavailable Cipriano, Thuy Dara MAINTENANCE TEAM LEADER Unavailable Unavailable Cipriano, Thuy Dara MAINTENANCE TEAM LEADER Unavailable Unavailable Cipriano, Thuy Dara MAINTENANCE TEAM LEADER Unavailable Unavailable Cipriano, Thuy Dara MAINTENANCE TEAM LEADER Unavailable Unavailable Cipriano, Thuy Dara MAINTENANCE TEAM LEADER Unavailable Unavailable Cipriano, Thuy Dara MAINTENANCE TEAM LEADER Unavailable Unavailable Cipriano, Thuy Dara MAINTENANCE TEAM LEADER Unavailable Unavailable Cipriano, Thuy Dara MAINTENANCE TEAM LEADER Unavailable Unavailable Re-disclosure Warning The records that [...] is protected by Article 27-F of the [facility] Public Health law. If you continue you may have access to information: Regarding HIV / AIDS; Provided by facilities licensed or operated by the [facility] Office of Mental Health; or Provided by the [facility] Office for People With Developmental Disabilities. If such information is present, then the following [facility] mandated warning applies: This information has been [...] law may result in a fine or care home sentence or both. A general authorization for the release of medical or other information is NOT sufficient authorization for further disc losure. Family History Family Member Name Family Member Gender Family Member Status Date o f Status Description Data Source(s) Unknown Male Diagnosis 01/21/2016 12:00:00 AM EDT [facility] ([facility]) Unknown Male Diagnosis 01/21/2016 12:00:00 AM EDT [facility] ([facility]) Encounters Encounter Providers Location Date Indications Data Source(s ) [place] [address] [address] 04/28/2020 12:00:00 AM EST eCW1 (On license of [facility]) [place] [address] [address] 04/27/2020 12:00:00 AM EST eCW1 (On license of [facility]) Attender: Evi Stapleton 1 06/10/2019 11:35:00 AM EST - 04/09/2020 11:35:00 AM EST [facility] ([facility]) [place] [address] [address] 02/20/2020 12:00:00 AM EDT eCW1 ([facility]) [place] [address] [address] 02/18/2020 12:00:00 AM EDT eCW1 (On license of [facility]) [place] [address] [address] 02/18/2020 12:00:00 AM EDT eCW1 ([facility]) Attender: Dara Cota NP [facility] 0 10/30/2019 01:50:00 PM EDT - 10/30/2019 01:50:00 PM EDT Encounter for test, result negativeEncounter for surveillance of injectable contraceptive [facility] ([facility]) Encounter for test, result neg ative Encounter for surveillance of injectable contraceptive [place] [address] [address] 10/14/2019 12:00:00 AM EDT eCW1 (On license of [facility]) [place] [address] [place] [address] 10/11/2019 12:00:00 AM EDT eCW1 (On license of [facility]) [place] [address] [address] 10/09/2019 12:00:00 AM EDT eCW1 (On license of [facility]) Outpatient Attender: Dara CASTANO 10/08/2019 07:56:32 P M EDT [facility] [address] [place] [address] 09/19/2019 12:00:00 AM EDT eCW1 ([facility]) [facility]: [facility] [place] 08/2019 08:36:00 AM EDT - 09/03/2019 08:36:00 AM EDT [facility] ([facility]) OutpatientOFFICE VISIT, EST Attender: Tania GONZALEZ [facility] 08/14/2019 02:00:00 PM EDT - 08/14/2019 02:00:00 PM EDT Encounter for test, result negativeHuman immunodeficiency virus [HIV] counselingEncounter for initial prescription of injectable contracepEncounter for oth general cnsl and advice on contraceptionOther sex counseling [facility] ([facility]) Encounter for test, result neg ative Human immunodeficiency virus [HIV] couns eling Encounter for initial prescription of in jectable contracep Encounter for oth general cnsl and advic e on contraception Other sex counseling Attender: Evi GONZALEZ [place] 01/2020 09:55:00 AM EDT - 08/09/2019 09:55:00 AM EDT [facility] ([facility]) [address] [address] 07/19/2019 12:00:00 AM EDT [facility]CW1 ([facility]) [address] [address] 07/19/2019 12:00:00 AM EDT [facility]CW1 ([facility]) [address] [address] 07/17/2019 12:00:00 AM EDT eCW1 ([facility]) [address] [place] [address] 07/16/2019 12:00:00 AM EDT eCW1 ([facility] [address] [place] [address] 07/16/2019 12:00:00 AM EDT eCW1 ([facility]) [address] [place] [address] 06/27/2019 12:00:00 AM EST eCW1 ([facility] Outpatient Attender: Dara CASTANO 06/25/2019 09:01:08 P M EST [address] [address] 06/19/2019 12:00:00 AM EST eCW1 (On license of [facility]) Attender: Tania Mclean 12/2018 03:30:00 PM EST - 04/08/2019 03:30:00 PM EST Body mass index (BMI) 32.0-32.9, adultEn counter for surveillance of injectable contraceptiveEncntr for application developer manager exam (general) (routine) w/o abn findingsHigh risk heterosexual behaviorEncntr screen for infections w sexl mode of transmissHuman immunodeficiency virus [HIV] counselingEncounter for oth general cnsl and advice on contraceptionOther sex counseling Next[facility] ([facility]) Body mass index (BMI) 32.0-32.9, adult Encounter for surveillance of injectable contraceptive Encntr for application developer manager exam (general) (routine) w/o abn findings High [...] DAILY DOSE = 4 TABLETS SOLD: 07/16/2019 [facility] tramadol hydrochloride 50 MG Oral Tablet Tramadol HCl 50 MG Tramadol HCl 50 MG 07/16/2019 12:00:00 AM EDT 1.0 {tablet_as_needed} suspended Tramadol HCl 50 MG eCW1 ([facility]) tizanidine 4 MG Oral Tablet Tizanidine HCl 4 MG Tizanidine H Cl 4 MG 07/16/2019 12:00:00 AM EDT active 1 tablet as needed eCW1 ([facility]) Naproxen 500 MG Oral Tablet Naproxen 500 MG 07/16/2019 12:00:00 AM EDT active Naproxen 500 MG eCW1 ([facility]) 500 mg 07/16/2019 12:00:00 AM EDT [...] {tablet_as_needed} active Tizanidine HCl 4 MG eCW1 ([facility]) Naproxen 500 MG Oral Tablet Naproxen 500 MG 07/16/2019 12:00:00 AM EDT active 1 tablet with food or milk a s needed eCW1 ([facility]) tramadol hydrochloride 50 MG Oral Tablet Tramadol HCl 50 MG Tramadol HCl 50 MG 07/16/2019 12:00:00 AM EDT 1.0 {tablet_as_needed} suspended Tramadol HCl 50 MG eCW1 ([facility]) Amoxicillin 875 MG Oral Tablet Amoxicillin 875 MG 07/16/2019 12:00: 00 AM EDT 1.0 {tablet} suspended Amoxicillin 875 M G eCW1 ([facility]) tizanidine 4 MG Oral Tablet Tizanidine HCl 4 MG Tizanidine H Cl 4 MG 07/16/2019 12:00:00 AM EDT 1.0 {tablet_as_needed} active Tizanidine HCl 4 MG eCW1 ([facility]) tizanidine 4 MG Oral Tablet Tizanidine HCl 4 MG Tizanidine H Cl 4 MG 07/16/2019 12:00:00 AM EDT 1.0 {tablet_as_needed} active Tizanidine HCl 4 MG eCW1 ([facility]) tramadol hydrochloride 50 MG Oral Tablet Tramadol HCl 50 MG Tramadol HCl 50 MG 07/16/2019 12:00:00 AM EDT 1.0 {tablet_as_needed} suspended Tramadol HCl 50 MG eCW1 ([facility]) Amoxicillin 875 MG Oral Tablet Amoxicillin 875 MG 07/16/2019 12:00: 00 AM EDT active 1 tablet eCW1 ([facility]) Amoxicillin 875 MG Oral Tablet Amoxicillin 875 MG 07/16/2019 12:00: 00 AM EDT 1.0 {tablet} suspended Amoxicillin 875 M G eCW1 ([facility]) Naproxen 500 MG Oral Tablet Naproxen 500 MG 07/16/2019 12:00:00 AM EDT active Naproxen 500 MG eCW1 ([facility]) tramadol hydrochloride 50 MG Oral Tablet Tramadol HCl 50 MG Tramadol HCl 50 MG 07/16/2019 12:00:00 AM EDT 1.0 {tablet_as_needed} suspended Tramadol HCl 50 MG eCW1 ([facility]) Naproxen 500 MG Oral Tablet Naproxen 500 MG 07/16/2019 12:00:00 AM EDT suspended Naproxen 500 MG eCW1 ([facility]) tramadol hydrochloride 50 MG Oral Tablet Tramadol HCl 50 MG Tramadol HCl 50 MG 07/16/2019 12:00:00 AM EDT active 1 tablet as needed eCW1 ([facility]) tramadol hydrochloride 50 MG Oral Tablet Tramadol HCl 50 MG Tramadol HCl 50 MG 07/16/2019 12:00:00 AM EDT 1.0 {tablet_as_needed} active Tramadol HCl 50 MG eCW1 ([facility]) tramadol hydrochloride 50 MG Oral Tablet Tramadol HCl 50 MG Tramadol HCl 50 MG 07/16/2019 12:00:00 AM EDT 1.0 {tablet_as_needed} suspended Tramadol HCl 50 MG eCW1 ([facility]) tizanidine 4 MG Oral Tablet Tizanidine HCl 4 MG Tizanidine H Cl 4 MG 07/16/2019 12:00:00 AM EDT 1.0 {tablet_as_needed} active Tizanidine HCl 4 MG eC1 ([facility]) tramadol hydrochloride 50 MG Oral Tablet Tramadol HCl 50 MG Tramadol HCl 50 MG 07/16/2019 12:00:00 AM EDT 1.0 {tablet_as_needed} suspended Tramadol HCl 50 MG eCW1 ([facility]) tizanidine 4 MG Oral Tablet Tizanidine HCl 4 MG Tizanidine H Cl 4 MG 07/16/2019 12:00:00 AM EDT 1.0 {tablet_as_needed} active Tizanidine HCl 4 MG eC ([facility]) tizanidine 4 MG Oral Tablet Tizanidine HCl 4 MG Tizanidine H Cl 4 MG 07/16/2019 12:00:00 AM EDT 1.0 {tablet_as_needed} active Tizanidine HCl 4 MG eCW1 ([facility]) Amoxicillin 875 MG Oral Tablet Amoxicillin 875 MG 07/16/2019 12:00: 00 AM EDT 1.0 {tablet} suspended Amoxicillin 875 M G eCW1 ([facility]) Amoxicillin 875 MG Oral Tablet Amoxicillin 875 MG 07/16/2019 12:00: 00 AM EDT 1.0 {tablet} suspended Amoxicillin 875 M G eCW ([facility]) tramadol hydrochloride 50 MG Oral Tablet Tramadol HCl 50 MG Tramadol HCl 50 MG 07/16/2019 12:00:00 AM EDT 1.0 {tablet_as_needed} active Tramadol HCl 50 MG eCW1 ([facility]) tizanidine 4 MG Oral Tablet Tizanidine HCl 4 MG Tizanidine H Cl 4 MG 07/16/2019 12:00:00 AM EDT 1.0 {tablet_as_needed} suspended Tizanidine HCl 4 MG eCW1 ([facility]) Naproxen 500 MG Oral Tablet Naproxen 500 MG 07/16/2019 12:00:00 AM EDT active Naproxen 500 MG eCW1 ([facility]) tizanidine 4 MG Oral Tablet Tizanidine HCl 4 MG Tizanidine H Cl 4 MG 07/16/2019 12:00:00 AM EDT 1.0 {tablet_as_needed} suspended Tizanidine HCl 4 MG eCW1 ([facility]) 90 mcg/actuation 06/17/2019 12:00:00 AM EST HFA aerosol inha ler 8 INHALE 2 PUFFS BY MOUTH FOUR TIMES A DAY NEEDED INHALE 2 PUFFS BY MOUTH FOUR TIMES A DAY NEEDED SOLD: 06/22/2019 [facility]-21 mcg/actuation 05/07/2019 12:00:00 AM EST HFA aerosol inhaler 12 INHALE TWO PUFFS BY MOUTH TWICE A DAY INHALE TWO PUFFS BY MOUTH TWICE A DAY SOLD: 06/22/2019 [facility] 90 mcg/actuation 05/07/2019 12:00:00 AM EST HFA aerosol inha ler 8 INHALE 2 PUFFS BY MOUTH FOUR TIMES A DAY NEEDED INHALE 2 PUFFS BY MOUTH FOUR TIMES A DAY NEEDED SOLD: 05/07/2019 [facility] 115-21 mcg/actuation 05/07/2019 12:00:00 AM EST HFA aerosol inhaler 12 INHALE TWO PUFFS BY MOUTH TWICE A DAY INHALE TWO PUFFS BY MOUTH TWICE A DAY SOLD: 09/30/2019 [facility] 115-21 mcg/actuation 05/07/2019 12:00:00 AM EST HFA aerosol inhaler 12 INHALE TWO PUFFS BY MOUTH TWICE A DAY INHALE TWO PUFFS BY MOUTH TWICE A DAY SOLD: 05/07/2019 [facility] medroxyprogesterone acetate 150 MG/ML In jectable Suspension medroxyprogesterone 150 mg/mL intramuscular suspension medroxyprogesterone 150 mg/mL intramuscu lar suspension 04/08/2019 12:00:00 AM EST active IM every 10-13 weeks Next[facility] ([facility]) medroxyprogesterone acetate 150 MG/ML In jectable Suspension medroxyprogesterone 150 mg/mL intramuscular suspension medroxyprogesterone 150 mg/mL intramuscu lar suspension 01/17/2019 12:00:00 AM EDT complet ed IM every 10-13 weeks [facility] ([facility]) tramadol hydrochloride 50 MG Oral Tablet tramadol 50 m g tablet tramadol 50 mg tablet completed [facility] ( [facility]) Insurance Providers Payer name Policy type / Coverage type Policy ID Covered republican ID Covered republican's relationship to hoskins Policy [place] Plan Information [facility] [id number] SP [id number] [facility] [id number] SP [id number] [facility] HEALTH CARE O [id number] S [id number] [employer] B [id number] O VYS [id number] [facility] LAN[place]ERO [id number] SP [id number] [place] 306/806 [id number] SP [id number] [facility] MMC [id number] self [id number] [place] 306/806 [id number] SP [id number] [place] PPO 302/307 [id number] SP [id number] [place] P[place] 302/307 [id number] SP [id number] Managed Care - [facility] P [id number] S [id number] Medicaid S [id number] S [id number] [facility] HEALTH CARE [id number] SP [id number] [facility] [id number] SP [id number] [facility] Medicaid Commercial [id number] Self [id number] [facility]-Medicaid [id number] [facility]-Medicaid [id number] MEDICAID [id number] SP [id number] ANSI-Medicaid [id number] ANSI-Medicaid [id number] [facility] Care - P P [id number] S [id number] D [facility] [id number] S [id number] ANSI-Medicaid [id number] ANSI-Medicaid [id number] ANSI-Medicaid [id number] ANSI-Medicaid [id number] ANSI-Medicaid [id number] ANSI-Medicaid [id number] ANSI-Medicaid [id number] ANSI-Medicaid [id number] ANSI-Medicaid [id number] ANSI-Medicaid [id number] SELF PAY ONLY UNAVAILABLE SP UNAV AILABLE MEDICAID [place] [id number] S [id number] [facility] [id number] [facility] [id number] 2 [id number] U [id number] Self [id number] PGBA [place] CHASE O [id number] P [id number] [facility] [id number] SP [id number] [facility] [id number] SP [id number] PMA MANAGEMENT [facility] [id number] SP [id number] [place] 306/806 [id number] SP [id number] [facility] [id number] FA2 [id number] [facility] [id number] FA2 [id number] Problems, Conditions, and Diagnoses Code Display Name Description Problem Type Effective Dates Data Source(s) M46.1 [id number] Sacroiliitis Problem 10/09/2019 12:00:00 AM EDT eCW1 ([facility]) M51.26 [id number] Protrusion of lumbar intervertebral disc Problem 10/09/2019 12:00:00 AM EDT eCW1 ([facility]) M54.41 [id number] Acute right-sided low back pain with right-sided sciatica Problem 07/16/2019 12:00:00 AM EDT eCW1 ([facility]) M54.41 086716563 Acute right-sided low back pain with right-sided sciatica Problem 07/16/2019 12:00:00 AM EDT eCW1 ([facility]) Z98.84 582407330 Status post gastric bypass for obesity Pr oblem 06/19/2019 12:00:00 AM EST eCW1 ([facility]) Z98.84 128193922 Status post gastric bypass for obesity Pr oblem 06/19/2019 12:00:00 AM EST eCW1 ([facility]) [id number] Atypical squamous cells of u ndetermined significance on cervical Papanicolaou smear Atypical squamous cells of undetermined significance on cervical Papanicolaou smear Problem 04/08/2019 12:00:00 AM EST NextG en ([facility]) Surgeries/Procedures Procedure Description Date Indications Data Source(s) Injection Or Lab Only Visit Est 08/14/19 20 12:00:00 AM EDT - 08/14/2019 12:00:00 AM EDT [facility] ([facility]) URINE TEST 08/14/2019 12:00:00 AM EDT - 08/14/2019 12:00:00 AM EDT [facility] ([facility]) NURSE ONLY DEPO INJ. RN/JACQUARD CARD LACER Only 020 12:00:00 AM EDT - 08/14/2019 12:00:00 AM EDT [facility] ([facility]) Depo/Medroxyprogesterone Inj. 150 Mg Nurse/CA 08/14/2019 12:00:00 AM EDT - 08/14/2019 12:00:00 AM EDT [facility] ([facility]) CVR BC Ending Method HORM.INJ. 3 MOS 12:00:00 AM EDT - 08/14/2019 12:00:00 AM EDT [facility] ([facility]) CVR Sales And Service Representative.Svc. STI / H 08/14/2019 12:00:00 AM EDT - 08/14/2019 12:00:00 AM EDT [facility] ([facility]) CVR Sales And Service Representative.Svc. Other 08/14/2019 12:00:00 AM EDT - 2019 12:00:00 AM EDT [facility] ([facility]) CVR Sales And Service Representative.Svc. Nutrition 08/14/2019 12:00: 00 AM EDT - 08/14/2019 12:00:00 AM EDT [facility] ([facility]) CVR Sales And Service Representative.Svc. Contraceptive 08/14/2019 12 :00:00 AM EDT - 08/14/2019 12:00:00 AM EDT [facility] ([facility]) CVR Med.Svc. Method Initiation 0 12:00:00 AM EDT - 08/14/2019 12:00:00 AM EDT [facility] ([facility]) CVR Med.Svc. Height/Weight 08/14/2019 12 :00:00 AM EDT - 08/14/2019 12:00:00 AM EDT [facility] ([facility]) OFFICE VISIT, EST 08/14/2019 12:00:00 AM EDT - 020 12:00:00 AM EDT [facility] ([facility]) Male Condom Polyurethane 08/14/2019 12:0 0:00 AM EDT - 08/14/2019 12:00:00 AM EDT [facility] ([facility]) URINE-NO MICRO 07/16/2019 12:00:00 AM EDT eCW1 ([facility]) Results ID Date Data Source [id number] 04/14/2020 06:04:00 AM EST [facility] Name Value Range Interpretation Code Description Data Yoly rce(s) Supporting Document(s) SARS coronavirus 2 RNA [facility] This lab was ordered by [facility] and reported by [facility]. ID Date Data Source [id number] 04/07/2020 10:00:00 AM EST [facility] Name Value Range Interpretation Code Description Data Yoly rce(s) Supporting Document(s) SARS coronavirus 2 RNA [facility] This lab was ordered by [facility] and reported by [facility]. ID Date Data Source [id number] 03/31/2020 06:22:00 AM EST [facility] Name Value Range Interpretation Code Description Data Yoly rce(s) Supporting Document(s) SARS coronavirus 2 RNA [facility] This lab was ordered by [facility] and reported by [facility]. ID Date Data Source [id number] 03/24/2020 08:00:00 AM EST [facility] Name Value Range Interpretation Code Description Data Yoly rce(s) Supporting Document(s) SARS coronavirus 2 RNA [facility] This lab was ordered by [facility] and reported by [facility]. ID Date Data Source [id number] 03/19/2020 11:00:00 AM EST [facility] Name Value Range Interpretation Code Description Data Yoly rce(s) Supporting Document(s) SARS coronavirus 2 RNA [facility] This lab was ordered by [facility] and reported by [facility]. ID Date Data Source [id number] 03/10/2020 07:45:00 AM EST [facility] Name Value Range Interpretation Code Description Data Yoly rce(s) Supporting Document(s) SARS coronavirus 2 RNA [facility] This lab was ordered by [facility] and reported by [facility]. ID Date Data Source [id number] 03/03/2020 05:22:00 AM EST [facility] Name Value Range Interpretation Code Description Data Yoly rce(s) Supporting Document(s) SARS coronavirus 2 RNA [facility] This lab was ordered by [facility] and reported by [facility]. ID Date Data Source [id number] 02/27/2020 02:17:00 PM EDT [facility] Name Value Range Interpretation Code Description Data Yoly rce(s) Supporting Document(s) SARS coronavirus 2 RNA [facility] This lab was ordered by [facility] and reported by [facility]. ID Date Data Source [id number] 02/18/2020 09:28:00 AM EDT [facility] Name Value Range Interpretation Code Description Data Yoly rce(s) Supporting Document(s) SARS coronavirus 2 RNA [facility] This lab was ordered by [facility] and reported by [facility]. ID Date Data Source [id number] 02/11/2020 03:30:00 PM EDT [facility] Name Value Range Interpretation Code Description Data Yoly rce(s) Supporting Document(s) SARS coronavirus 2 RNA [facility] This lab was ordered by [facility] and reported by [facility]. ID Date Data Source [id number] 02/06/2020 09:00:00 AM EDT [facility] Name Value Range Interpretation Code Description Data Yoly rce(s) Supporting Document(s) SARS coronavirus 2 RNA [facility] This lab was ordered by [facility] and reported by [facility]. ID Date Data Source [id number] 08/14/2019 02:51:36 PM EDT [facility] ([facility]) Name Value Range Interpretation Code Description Data Yoly rce(s) Supporting Document(s) NegativeLot: [id number]: 02/28/2021 [facility] ID Date Data Source [id number] 06/19/2019 12:00:00 AM EST eCW1 ([facility]) Name Value Range Interpretation Code Description Data Yoly rce(s) Supporting Document(s) 394 [id number] VITAMIN B12 LEVEL eCW1 ([facility]) ID Date Data Source TOTAL IRON BINDING CAPACIT 06/19/2019 12:00:00 AM EST eCW1 ( [facility]) Name Value Range Interpretation Code Description Data Yoly rce(s) Supporting Document(s) 478 250-450 TOTAL IRON BINDING CAPACI TY eCW1 ([facility]) 103 50-170 IRON (FE) eCW1 ([facility]) 21.5 13.2-45.0 PERCENT SATURATION eCW1 ([facility]) ID Date Data Source VITAMIN D 25-HYDROXY 06/19/2019 12:00:00 AM EST eCW1 ([facility]) Name Value Range Interpretation Code Description Data Yoly rce(s) Supporting Document(s) 24.9 30.0-100.0 TOTAL 25(OH) VITAMIN D eC W1 ([facility]) ID Date Data Source RBC FOLATE PROFILE 06/19/2019 12:00:00 AM EST eCW1 ([facility]) Name Value Range Interpretation Code Description Data Yoly rce(s) Supporting Document(s) 39.9 36.0-47.0 HEMATOCRIT eCW1 ([facility]) ID Date Data Source Comprehensive Metabolic Profile (CMP) 06/19/2019 12:00:00 AM EST eCW1 ([facility]) Name Value Range Interpretation Code Description Data Yoly rce(s) Supporting Document(s) 94 70-100 GLUCOSE, FASTING eCW1 ([facility]) 17 7-18 BLOOD UREA NITROGEN eCW1 ([facility]) 0.78 0.55-1.30 CREATININE FOR GFR eCW1 ([facility]) 141 136-145 SODIUM LEVEL eCW1 ([facility]) 111 98-107 CHLORIDE LEVEL eCW1 ([facility]) > 60.0 >60 GLOMERULAR FILTRATION RATE eCW 1 ([facility]) 4.3 3.5-5.1 POTASSIUM SERUM eCW1 (Replaced by [facility]) 27 21-32 CARBON DIOXIDE LEVEL eCW1 ([facility]) 15 12-78 ALT/SGPT eCW1 ([facility]) 12 7-37 AST/SGOT eCW1 ([facility]) 9.1 8.5-10.1 CALCIUM LEVEL eCW1 ([facility]) 4.3 3.2-5.2 ALBUMIN eCW1 ([facility]) 0.4 0.2-1.0 BILIRUBIN,TOTAL eCW1 (Replaced by [facility]) 7.3 6.4-8.2 TOTAL PROTEIN eCW1 ([facility]) 59 45-117 ALKALINE PHOSPHATASE eCW1 ([facility]) 1.43 1.00-1.93 ALBUMIN/GLOBULIN RATIO eCW1 ([facility]) ID Date Data Source CBC - Complete Blood Count 06/19/2019 12:00:00 AM EST eCW1 ( [facility]) Name Value Range Interpretation Code Description Data Yoly rce(s) Supporting Document(s) 6.8 4.0-10.0 WHITE BLOOD COUNT eCW1 ([facility]) 12.5 12.0-15.5 HEMOGLOBIN eCW1 ([facility]) 39.9 36.0-47.0 HEMATOCRIT eCW1 ([facility]) 4.82 4.00-5.40 RED BLOOD COUNT eCW1 ([facility]placed by [facility]) 31.3 32.0-36.5 MEAN CORPUSCULAR HGB CONC eCW1 ([facility]) 13.2 11.5-14.5 RED CELL DISTRIBUTION WID TH eCW1 ([facility]) 25.9 27.0-33.0 MEAN CORPUSCULAR HEMOGLOB IN eCW1 ([facility]) 82.8 80.0-96.0 MEAN CORPUSCULAR VOLUME e CW1 ([facility]) 305 150-450 PLATELET COUNT, AUTOMATED eCW1 ([facility]) Procedure Social History Code Duration Value Status Description Data Source(s ) Smoking 04/28/2020 12:00:00 AM EST Former Smoker completed Former Smoker eCW1 ([facility]) Smoking 04/28/2020 12:00:00 AM EST Former Smoker completed Former Smoker eCW1 ([facility]) Smoking 02/20/2020 12:00:00 AM EDT Former Smoker completed Former Smoker eCW1 ([facility]) Smoking 02/20/2020 12:00:00 AM EDT Former Smoker completed Former Smoker eCW1 ([facility]) Smoking 02/18/2020 12:00:00 AM EDT Former Smoker completed Former Smoker eCW1 ([facility]) Smoking 10/09/2019 12:00:00 AM EDT Former Smoker completed Former Smoker eCW1 ([facility]) Smoking 10/09/2019 12:00:00 AM EDT Former Smoker completed Former Smoker eCW1 ([facility]) Smoking 10/09/2019 12:00:00 AM EDT Former Smoker completed Former Smoker eCW1 ([facility]) Smoking 09/03/2019 12:00:00 AM EDT Never smoker completed Never s moker NextGen ([facility]) Vital Signs ID Date Data Source UNK Name Value Range Interpretation Code Description Data Source(s) Diastolic blood pressure 70 mm[Hg] 70 mm[Hg] eCW1 ([facility]) Systolic blood pressure 124 mm[Hg] 124 mm[Hg] e CW1 ([facility]) Body temperature 97.6 [degF] 97.6 [degF] eCW1 ( [facility]) Respiratory rate 18 /min 18 /min eCW1 ([facility]) Heart rate 88 /min 88 /min eCW1 ([facility]placed by [facility]) Body mass index (BMI) [Ratio] 41.03 kg/m2 41.03 kg/m2 eCW1 ([facility]) Body height [in_i] eCW1 ([facility]) Body weight 286 [lb_av] 286 [lb_av] eCW1 ([facility]) Diastolic blood pressure 74 mm[Hg] 74 mm[Hg] eCW1 ([facility]) Systolic blood pressure 121 mm[Hg] 121 mm[Hg] e CW1 ([facility]) Body temperature 97.4 [degF] 97.4 [degF] eCW1 ( [facility]) Respiratory rate 16 /min 16 /min eCW1 ([facility]) Heart rate 82 /min 82 /min eCW1 ([facility]placed [facility]) Body mass index (BMI) [Ratio] 41.52 kg/m2 41.52 kg/m2 eCW1 ([facility]) Body height [in_i] eCW1 ([facility]) Body weight 289.4 [lb_av] 289.4 [lb_av] eCW1 ([facility]) Diastolic blood pressure 72 mm[Hg] 72 mm[Hg] eCW1 ([facility]) Systolic blood pressure 121 mm[Hg] 121 mm[Hg] e CW1 ([facility]) Body temperature 96.6 [degF] 96.6 [degF] eCW1 ( [facility]) Respiratory rate 18 /min 18 /min eCW1 ([facility]) Heart rate 71 /min 71 /min eCW1 ([facility]placed [facility]) Body mass index (BMI) [Ratio] 41.81 kg/m2 41.81 kg/m2 eCW1 ([facility]) Body height [in_i] eCW1 ([facility]) Body weight 291.4 [lb_av] 291.4 [lb_av] eCW1 ([facility]) Diastolic blood pressure 88 mm[Hg] 88 mm[Hg] eCW1 ([facility]) Systolic blood pressure 147 mm[Hg] 147 mm[Hg] e CW1 ([facility]) Body temperature 98.0 [degF] 98.0 [degF] eCW1 ( [facility]) Respiratory rate 18 /min 18 /min eCW1 ([facility]) Heart rate 77 /min 77 /min eCW1 ([facility]placed [facility]) Body mass index (BMI) [Ratio] 37.76 kg/m2 37.76 kg/m2 eCW1 ([facility]) Body height [in_i] eCW1 ([facility]) Body weight 263.2 [lb_av] 263.2 [lb_av] eCW1 ([facility]) Body mass index (BMI) [Ratio] 33.91 kg/m2 Overweight 33.91 kg/m2 NextGen ([facility]) Body weight 113.398 kg 113.398 kg [facility] ([facility] Body height 182.88 cm 182.88 cm [facility] ([facility]) Diastolic blood pressure 73 mm[Hg] 73 mm[Hg] eCW1 ([facility]) Systolic blood pressure 106 mm[Hg] 106 mm[Hg] e CW1 ([facility]) Body temperature 97.8 [degF] 97.8 [degF] eCW1 ( [facility]) Respiratory rate 18 /min 18 /min eCW1 ([facility]) Heart rate 100 /min 100 /min eCW1 ([facility]placed [facility]) Body mass index (BMI) [Ratio] 35.87 kg/m2 35.87 kg/m2 eCW1 ([facility]) Body height [in_us] eCW1 ([facility]) Body weight Measured 250 [lb_av] 250 [lb_av] eC W1 ([facility]) Patient Treatment Plan of Care Planned Activity Planned Date Details Description Data Source (s) tizanidine 4 MG Oral Tablet 07/16/2019 12:00:00 AM EDT eCW1 ([facility]) tramadol hydrochloride 50 MG Oral Tablet 07/16/2019 12:00:00 AM EDT eCW1 ([facility]) tizanidine 4 MG Oral Tablet 07/16/2019 12:00:00 AM EDT eCW1 ([facility]) Amoxicillin 875 MG Oral Tablet 07/16/2019 12:00:00 AM EDT eCW1 ([facility]) Naproxen 500 MG Oral Tablet 07/16/2019 12:00:00 AM EDT eCW1 ([facility]) medroxyprogesterone acetate 150 MG/ML Injectable Suspe nsion 04/08/2019 12:00:00 AM EST [facility] ([facility] medroxyprogesterone acetate 150 MG/ML Injectable Suspe nsion 01/17/2019 12:00:00 AM EDT [facility] ([facility] tramadol hydrochloride 50 MG Oral Tablet NextGen ([facility])
== END 2020-06-05 14:37 | disposition home or self-care (01) ==
LOC: M ED 13:07
DX: O26.892 Other specified pregnancy related conditions, second trimester (principal); M54.5 Low back pain; Z3A.13 13 weeks gestation of pregnancy

== ENCOUNTER → 2020-08-06 | Outpatient (CLI) | payer MEDICAID ==
--- NOTE | 2020-08-06 10:09 | REP ---
INDICATION: ANATOMY COMPARISON: 05/05/2020 TECHNIQUE: Transabdominal obstetrical ultrasound with color Doppler evaluation. FINDINGS: Examination demonstrates a single live intrauterine in variable presentation. motion is identified by technologist. Placenta is noted posterior and grade 0 without evidence for placenta previa or abruption. Amniotic fluid volume is normal. Cervix measures 3.2 cm in length and appears closed.. Gestational age by 1st ultrasound 21 weeks 6 days with JAIRO 12/11/2020 Gestational age by current measurements 21 weeks 2 days with JAIRO 12/15/2020. FHR equals 152 beats per minute. BPD: 4.7 cm at 20 weeks 2 days HC: 18.5 cm at 20 weeks 6 days AC: 16.3 cm at 21 weeks 3 days FL: 3.7 cm at 21 weeks 5 days HL: 3.5 cm at 22 weeks 0 days HC/AC: 1.14 Estimated weight 423 grams (23rdpercentile). Anatomical assessment demonstrates normal structures including cranium, choroid plexus, cavum, cerebellum/posterior fossa, facial features, lungs, four-chamber heart/ventricular outflow tracts, diaphragm, stomach, cord insertion/three-vessel cord, kidneys/bladder, spine, and extremities. IMPRESSION: Single live intrauterine in variable presentation demonstrating appropriate interval growth. Anatomical assessment is complete and normal. <Electronically signed by Armando Yip > 08/06/20 [id number]
== END ==
LOC: M WHC 07:54
PROVIDERS: ATTEND Advanced Practice Midwife
DX: Z34.82 Encounter for supervision of other normal pregnancy, second trimester (principal); Z3A.21 21 weeks gestation of pregnancy

== ENCOUNTER 2020-09-20 07:21 | Emergency (ER) | payer MEDICAID, OTHER ==
[2020-09-20 07:22] VITALS: BP 161/76
[2020-09-20] MEDS ORDERED: PRENTAB9 PO (08:12)
== END 2020-09-20 08:24 | disposition admitted as inpatient to this hospital (09) ==
LOC: M ED 07:21
DX: R42 Dizziness and giddiness (principal)

== ENCOUNTER 2020-09-20 07:37 | Outpatient (CLI) | payer MEDICAID ==
[~2020-09-20] VITALS: Ht 180.3 cm; Wt 138.8 kg
[2020-09-20 08:00] VITALS: BP 134/61
[2020-09-20] MEDS ORDERED: PRENTAB9 PO (08:12)
[2020-09-20] MEDS ORDERED: LACTATED RINGER'S 1000 ML IV STA (08:48)
[2020-09-20] MEDS ORDERED: LR 1,000 ML IV SCH (08:50)
[2020-09-20 09:09] LABS: HEMATOCRIT 31.8 % (36.0-47.0); HEMOGLOBIN 9.9 g/dl (12.0-15.5); MEAN CORPUSCULAR HEMOGLOBIN 26.1 pg (27.0-33.0); MEAN CORPUSCULAR HGB CONC 31.1 g/dl (32.0-36.5); MEAN CORPUSCULAR VOLUME 83.9 fl (80.0-96.0); PLATELET COUNT, AUTOMATED 309 10^3/uL (150-450); RED BLOOD COUNT 3.79 10^6/uL (4.00-5.40); WHITE BLOOD COUNT 12.7 10^3/uL (4.0-10.0)
[2020-09-20 09:15] LABS: ALT/SGPT 13 U/L (12-78); BILIRUBIN,TOTAL 0.1 MG/DL (0.2-1.0); BLOOD UREA NITROGEN 16 MG/DL (7-18); CALCIUM LEVEL 8.8 MG/DL (8.5-10.1); CARBON DIOXIDE LEVEL 22 MEQ/L (21-32); CHLORIDE LEVEL 108 MEQ/L (98-107); CREATININE FOR GFR 0.57 MG/DL (0.55-1.30); GLOMERULAR FILTRATION RATE > 60.0 (>60); GLUCOSE, FASTING 78 MG/DL (70-100); SODIUM LEVEL 138 MEQ/L (136-145); TOTAL PROTEIN 6.9 GM/DL (6.4-8.2)
--- NOTE | 2020-09-20 10:18 | IPNPDOC ---
Text Note Date of Service The patient was seen on 09/20/20. NOTE 30 yo at 28 weeks gestation presents with dizziness for 1 day. She felt nausea. No vomiting. She feels weak. good movement. Pt of [facility], Dr. Hoover. O: AVSS NAD lungs: CTA CVS: RRR Abd: NT, gravid FHT: category I toco: none CMP: WNL Hb=9.9 g/dl A/P 30 yo at 28 weeks with dizziness, dehydration IVF's given labs reviewed testing reassuring note for work today fu office this week with Dr. Hoover VSEzequiel, I+O VSEzequiel I+O Laboratory Tests 09/20/20 08:40 Vital Signs Date Time Temp Pulse Resp B/P (MAP) Pulse Ox O2 Delivery O2 Flow Rate FiO2 09/20/20 08:00 97.6 73 18 134/61 (85) RASHEEDA HERRERA MD September 20, 2020 10:18
== END 2020-09-20 10:20 | disposition home or self-care (01) ==
LOC: M LDO 07:37
PROVIDERS: ATTEND Specialist
DX: O99.283 Endocrine, nutritional and metabolic diseases complicating pregnancy, third trimester (principal); E86.0 Dehydration; Z3A.28 28 weeks gestation of pregnancy

== ENCOUNTER → 2020-10-05 | Outpatient (CLI) | payer MEDICAID, OTHER ==
[~2020-10-05] MED LIST changes: +PRENTAB9 PO
[2020-10-05 15:28] LABS: HEMOGLOBIN 9.8 g/dl (12.0-15.5); MEAN CORPUSCULAR HEMOGLOBIN 26.1 pg (27.0-33.0); MEAN CORPUSCULAR HGB CONC 31.6 g/dl (32.0-36.5); MEAN CORPUSCULAR VOLUME 82.7 fl (80.0-96.0); PLATELET COUNT, AUTOMATED 298 10^3/uL (150-450); RED BLOOD COUNT 3.75 10^6/uL (4.00-5.40); WHITE BLOOD COUNT 11.9 10^3/uL (4.0-10.0)
== END ==
LOC: M LAB 13:27
PROVIDERS: ATTEND Advanced Practice Midwife
DX: Z34.82 Encounter for supervision of other normal pregnancy, second trimester (principal)

== ENCOUNTER → 2020-10-28 | Outpatient (REF) | payer OTHER | LOC: M LAB REF 16:33 | PROVIDERS: ATTEND Obstetrics & Gynecology | DX: Z34.83 Encounter for supervision of other normal pregnancy, third trimester (principal) ==

== ENCOUNTER → 2020-11-17 | Outpatient (REF) | payer OTHER | LOC: M LAB REF 12:20 | PROVIDERS: ATTEND Obstetrics & Gynecology | DX: Z34.83 Encounter for supervision of other normal pregnancy, third trimester (principal) ==

== ENCOUNTER 2020-12-02 10:11 | Inpatient (IN) | payer OTHER ==
[2020-12-02] VITALS (15 sets, daily range): BP systolic 94–131; BP diastolic 50–82
[~2020-12-02] VITALS: Ht 180.3 cm; Wt 148.0 kg
[2020-12-02] MEDS ORDERED: ADVA115A INH (10:43)
[2020-12-02] MEDS ORDERED: LACTATED RINGER'S 1000 ML IV STA (11:04)
[2020-12-02] MEDS ORDERED: OXYTOCIN DRIP 30 UNITS in IV 1 EA IV PRN ×4 (11:05)
[2020-12-02] MEDS ORDERED: LIDOCAINE 1% MDV 20ML VIAL INFIL PRN (11:05)
--- NOTE | 2020-12-02 11:52 | HPE ---
HISTORY AND PHYSICAL DATE OF ADMISSION: 12/02/2020 HISTORY OF PRESENT ILLNESS: Soni is a 30-year-old 2 para 1-0-0-1 at 38 and 5/7th weeks gestation, EDC of 12/11/2020 based on first trimester ultrasound. She presents to Labor and Delivery today for consult with Dr. Ed Hoover for induction of labor due to oligohydramnios. She was seen for an ultrasound for growth today and noted to have 3 cm of fluid. She denies vaginal bleeding, leakage of fluid and regular painful contractions. The has been active. Her care initiated at [facility] in the first trimester and her course has been uncomplicated until today's presentation. OBSTETRIC HISTORY: #1: Term vaginal delivery at 40 weeks gestation, 8 pound, 12 ounce male, uncomplicated. OBSTETRIC LABS: A positive, antibody screen negative, varicella immune, rubella immune, VDRL non-reactive, urine culture no growth, hepatitis B surface antigen negative, HIV negative, hepatitis C antibody nonreactive, gonorrhea and chlamydia negative. PAP was normal. HPV positive. Gestational diabetic screening normal at 107 and her GBS is negative. PAST MEDICAL HISTORY: Childhood varicella, asthma. PAST SURGICAL HISTORY: Gastric bypass, tonsillectomy. FAMILY HISTORY: CVA, lung cancer, heart disease, diabetes and hypertension. SOCIAL HISTORY: The patient is , her is at bedside and supportive. She is a nonsmoker. She denies a history of abuse, physical, sexual and emotional. There is no history of sexually transmitted infections. ALLERGIES: No known drug allergies. CURRENT MEDICATIONS: 1. Advair. 2. Albuterol. 3. Flexeril. 4. Tramadol. OBJECTIVE: Temperature 97.6, pulse 83, respirations 18, BP 102/50. heart rate is 150 with moderate variability, positive accelerations, one isolated variable noted. There is no pattern of regular contractions. Her abdomen is gravid, cephalic presentation. Estimated weight 7 pounds. Sterile vaginal exam: Per Ed Hoover M.D., 1 cm dilated, 60% effaced, -2 station. ASSESSMENT: Intrauterine at 38 and 5/7th weeks, oligohydramnios. PLAN: Admit the patient to Labor and Delivery, out of bed ad agapito, routine laboratories, IV fluid bolus, IV fluids at 125, a clear liquid diet, start Misoprostol 50 mcg p.o. q. 4 hours for cervical ripening, will likely start IV Pitocin. Will consider assisted rupture of membranes to augment her labor, the patient is desiring an epidural when she is uncomfortable with her labor. The risks, benefits and alternatives have been reviewed with the patient. She and her 's questions have been answered. She has been verbally consented for emergency surgery and blood products if they are necessary. CECILIO
[2020-12-02] MEDS: miSOPROStol 50MCG 1/2 TABLET PO SCH ×2 (11:57→16:01)
[2020-12-02 12:03] LABS: HEMATOCRIT 29.9 % (36.0-47.0); HEMOGLOBIN 9.2 g/dl (12.0-15.5); MEAN CORPUSCULAR HEMOGLOBIN 24.2 pg (27.0-33.0); MEAN CORPUSCULAR HGB CONC 30.8 g/dl (32.0-36.5); MEAN CORPUSCULAR VOLUME 78.7 fl (80.0-96.0); PLATELET COUNT, AUTOMATED 334 10^3/uL (150-450)
[2020-12-02] MEDS: LR 1,000 ML IV SCH ×2 (13:54→19:05)
[2020-12-02] MEDS ORDERED: LR 1,000 ML IV SCH (18:10)
[2020-12-02] MEDS ORDERED: OXYTOCIN DRIP 30 UNITS in IV 1 EA IV SCH (18:10)
[2020-12-03 00:01] VITALS: BP 118/59
[2020-12-03 00:06] VITALS: BP 117/56
[2020-12-03] MEDS ORDERED: FENTANYL 2MCG/ML ROPIVACAINE 0.2% IN 0.9% NACL 100ML IVBAG As Ordered ONE (00:50)
[2020-12-03 00:59] VITALS: BP 137/77
[2020-12-03] MEDS ORDERED: REFRIGERATOR IV KEYS XX PRN (01:15)
[2020-12-03] MEDS ORDERED: EPIDURAL/PCA KEYS XX PRN (01:15)
[2020-12-03] MEDS ORDERED: ONDANSETRON 4MG/2ML VIAL IV PRN (01:15)
[2020-12-03] MEDS ORDERED: diphenhydrAMINE 50MG/ML VIAL (J1200) IV PRN (01:15)
[2020-12-03] MEDS ORDERED: ePHEDrine SULFATE 25 MG/5 ML(5MG/ML) SYRINGE IV PRN (01:15)
[2020-12-03] MEDS ORDERED: NALOXONE INJ 0.4MG/1ML VIAL (J2310 PER 1MG) IV PRN (01:15)
[2020-12-03] MEDS ORDERED: EPIDURAL COMMENT XX SCH (01:15)
[2020-12-03] MEDS ORDERED: LACTATED RINGER'S 1000 ML IV PRN (01:15)
[2020-12-03] MEDS ORDERED: FENTANYL/ROPIVACAINE/NACL BAG 100 ML EPIDURAL SCH (01:15)
[2020-12-03] MEDS ORDERED: ACETAMINOPHEN TAB 650MG DOSE (2X325MG) PO PRN (05:25)
[2020-12-03] MEDS ORDERED: METHYLERGONOVINE MALEATE 0.2 MG TAB PO PRN (05:25)
[2020-12-03] MEDS ORDERED: MEASLES,MUMPS,RUBELLA VACCINE INJ (MMR-II) (90707) SC SCH (05:25)
[2020-12-03] MEDS ORDERED: DIBUCAINE 1% OINTMENT 30GM TOP PRN (05:25)
[2020-12-03] MEDS ORDERED: IBUPROFEN 600MG TAB PO PRN (05:25)
[2020-12-03] MEDS ORDERED: DOCUSATE SODIUM 100MG CAPSULE PO PRN (05:25)
[2020-12-03] MEDS ORDERED: RHOGAM 300 MCG (1500 IU) INJ (J2790) IM SCH (05:25)
[2020-12-03 06:45] VITALS: BP 121/62
[2020-12-03] MEDS: ACETAMINOPHEN 500 MG TAB PO PRN ×2 (07:41→17:10)
--- NOTE | 2020-12-03 08:04 | DN ---
DELIVERY NOTE DATE OF DELIVERY: 12/03/2020 TIME OF : GENDER: APGARS: LACERATIONS: ANESTHESIA: ESTIMATED BLOOD LOSS: 400 mL. COUNTS: DESCRIPTION OF DELIVERY: Soni is a 30-year-old 2 para 2-0-02 now who was admitted to labor and delivery for induction of labor due to oligohydramnios. Misoprostol and IV Pitocin were used and labor did ensue. She used an epidural for her labor coping. She reached a complete dilation at 0434. She pushed to a normal spontaneous vaginal delivery of a live female in direct OP position with restitution to ROT position at 0452. There was a cord draped over the right shoulder. The shoulders delivered spontaneously and the corpus immediately followed. female's mouth and nares were bulb suctioned and she was placed on the maternal abdomen crying and active. There was a true knot in the cord. The cord was clamped times 2 and cut by the father of the baby under my direction. Spontaneous expulsion of an intact placenta with three-vessel cord by Hill mechanism was at 0457. Uterine hemostasis achieved with IV Pitocin rapid infusion and uterine fundal massage. Estimated blood loss: 400 mL. Perineum and vagina inspected and noted to have a perineal abrasion. The perineal abrasion repaired with 3-0 Vicryl Rapide in the usual fashion. The patient was straight cathed for 200 mL of dark yellow urine as well as she voided approximately 200 mL of dark yellow urine during her second stage. female weight is pending. Mom is going to both breast and bottle feed. The family has named their daughter Iva. Apgars are 9 and 10. At the close of delivery, lap counts, needle counts and instrument counts were correct and verified.
[2020-12-03] MEDS: PRENATAL VITAMINS CHEWABLE TABLET PO SCH (08:54)
[2020-12-03] MEDS: IBUPROFEN 800 MG TAB PO PRN ×2 (12:09→20:55)
[2020-12-03 18:00] VITALS: BP 137/73
[2020-12-04] MEDS: ACETAMINOPHEN 500 MG TAB PO PRN ×2 (02:58→10:20)
[2020-12-04 06:00] VITALS: BP 129/86
--- NOTE | 2020-12-04 06:20 | IPNPDOC ---
Progress Note Date of Service: Dec 04, 2020 Day#: 1 Progress Note PPD 1 SUBJECT: Soni is a 30yo [id number] s/p uncomplicated at 38w5d after undergoing IOL for oligohydramnios, doing well day # 1. She has been ambulating, voiding spontaneously without issue and tolerating regular diet. Formula feeding by choice. Reports lochia is like a normal period. No f/c/n/v/CP/SOB. No lightheadedness/dizziness. OBJECTIVE: VITAL SIGNS: Within normal limits, afebrile. Alert and oriented times three. Abdomen: Fundus firm at U-2. Soft, NTTP. Extremities: no pain with palpation of calves Labs: pre-delivery H/H 9.2/29.9 EBL 400ml ASSESSMENT: Soni is a 30yo [id number] s/p uncomplicated at 38w5d after undergoing IOL for oligohydramnios, doing well day # 1. Vitals within normal limits, afebrile, hemodynamically stable with no evidence of infection. PLAN: 1. Discharge home today after repeat CBC for starting H/H of 9.2/29.9 with EBL 400ml. 2. Tylenol and Motrin for pain. 3. Encourage good hydration and ambulation. 4. Regular diet 5. Planning on vasectomy for contraception. Discussed condoms if sexually active prior to vasectomy. 6. Discussed return precautions 7. Routine visit at 6wk PP at [facility] Karen Ng MD VS, I&O, 24H, Fishbone Vital Signs/I&O Vital Signs Date Time Temp Pulse Resp B/P (MAP) Pulse Ox O2 Delivery O2 Flow Rate FiO2 12/04/20 06:00 97.2 83 129/86 (100) 12/03/20 18:00 16 96 Room Air I&O- Last 24 Hours up to 6 AM 12/04/20 06:00 Output Total 300 ml Balance -300 ml Karen Ng MD Dec 04, 2020 06:20
[2020-12-04] MEDS ORDERED: DOK1CAP4 PO (06:21)
[2020-12-04] MEDS ORDERED: IBUP80TA PO (06:21)
--- NOTE | 2020-12-04 06:34 | DS.PDOC ---
Discharge Summary General Date of Admission Dec 02, 2020 at 11:02 Date of Discharge Dec 04, 2020 Discharge Summary PROCEDURES PERFORMED DURING STAY: spontaneous vaginal delivery ADMITTING DIAGNOSES: 1. term gestation, oligohydramnios DISCHARGE DIAGNOSES: 1. term gestation, oligohydramnios COMPLICATIONS/CHIEF COMPLAINT: IOL HISTORY OF PRESENT ILLNESS/HOSPITAL COURSE: Soin is a 30yo [id number] s/p uncomplicated at 38w5d after undergoing IOL for oligohydramnios, doing well day # 1. She had a benign course and at time of discharge, vitals are within normal limits, she is afebrile, hemodynamically stable with no evidence of infection. DISCHARGE MEDICATIONS: Please see below. ALLERGIES: Please see below. PHYSICAL EXAMINATION ON DISCHARGE: VITAL SIGNS: Within normal limits, afebrile. Alert and oriented times three. Abdomen: Fundus firm at U-2. Soft, NTTP. Extremities: no pain with palpation of calves LABORATORY DATA: Please see below. ACTIVITY: vaginal rest, no heavy lifting 6 weeks DIET: regular DISCHARGE PLAN/INSTRUCTIONS: 1. Discharge home today 2. Tylenol and Motrin for pain. 3. Encourage good hydration and ambulation. 4. Regular diet 5. Planning on vasectomy for contraception. Discussed condoms if sexually active prior to vasectomy. 6. Discussed return precautions 7. Routine visit at 6wk PP at [facility] DISCHARGE CONDITION: Stable TIME SPENT ON DISCHARGE: 20 minutes. Karen Ng MD Vital Signs/I&Os Vital Signs Date Time Temp Pulse Resp B/P (MAP) Pulse Ox O2 Delivery O2 Flow Rate FiO2 12/04/20 06:00 97.2 83 129/86 (100) 12/03/20 18:00 16 96 Room Air I&O- Last 24 Hours up to 6 AM 12/04/20 06:00 Output Total 300 ml Balance -300 ml Discharge Medications Scheduled Fluticasone Propion/Salmeterol (Advair Hfa 115-21 Mcg Inhaler) 12 Gm Hfa.aer.ad, 2 PUFF INH BID, (Reported) No.137/Iron/Folic Acd ( Vitamin Tablet) 1 Each Tablet, 1 TAB PO DAILY, (Reported) Scheduled PRN Docusate Sodium (Dok) 100 Mg Capsule, 100 MG PO BIDP PRN for CONSTIPATION Ibuprofen (Ibuprofen) 800 Mg Tablet, 800 MG PO Q8HP PRN for PAIN LEVEL 6-10 Allergies Coded Allergies: No Known Drug Allergies (Verified Allergy, Unknown, 08/20/18) Karen Ng MD Dec 04, 2020 06:34
[2020-12-04 07:01] LABS: HEMATOCRIT 23.6 % (36.0-47.0); HEMOGLOBIN 7.3 g/dl (12.0-15.5); MEAN CORPUSCULAR HEMOGLOBIN 24.7 pg (27.0-33.0); MEAN CORPUSCULAR HGB CONC 30.9 g/dl (32.0-36.5); PLATELET COUNT, AUTOMATED 262 10^3/uL (150-450); RED BLOOD COUNT 2.95 10^6/uL (4.00-5.40); WHITE BLOOD COUNT 10.7 10^3/uL (4.0-10.0)
[2020-12-04] MEDS ORDERED: FERR325T3 PO (07:43)
[2020-12-04] MEDS ORDERED: FERROUS SULFATE 325MG TAB PO SCH (09:00)
[2020-12-04] MEDS: PRENATAL VITAMINS CHEWABLE TABLET PO SCH (09:00)
[2020-12-04] MEDS: IBUPROFEN 800 MG TAB PO PRN (09:13)
[2020-12-04 18:29] VITALS: BP 120/57
[2020-12-04] MEDS ORDERED: BOOSTRIX/ADACEL VACCINE (DIPHTH/PERTUSS/ACELL/TETANUS) 0.5ML SYR IM ONE (19:00)
== END 2020-12-04 19:40 | disposition home or self-care (01) | DRG 560 ==
LOC: M LDO 10:11 → M LDI 11:02 → M OBS 12-03 06:44
PROVIDERS: ADMIT Advanced Practice Midwife; ATTEND Advanced Practice Midwife
PROC: 3E0P7GC Introduction of Other Therapeutic Substance into Female Reproductive, Via Natural or Artificial Opening (ICD-10-PCS; 2020-12-02)
PROC: 10E0XZZ Delivery of Products of Conception, External Approach (ICD-10-PCS; principal; 2020-12-03)
DX: O41.03X0 Oligohydramnios, third trimester, not applicable or unspecified (principal); Z3A.38 38 weeks gestation of pregnancy; Z37.0 Single live birth; O99.844 Bariatric surgery status complicating childbirth; O69.82X0 Labor and delivery complicated by other cord entanglement, without compression, not applicable or unspecified; O69.2XX0 Labor and delivery complicated by other cord entanglement, with compression, not applicable or unspecified

== ENCOUNTER 2023-06-09 08:57 | Emergency (ER) | payer OTHER ==
[~2023-06-09] VITALS: Ht 180.3 cm; Wt 126.1 kg
[~2023-06-09 08:57] MED LIST changes: +CYCL5TAB PO; +DOK1CAP4 PO; +FERR325T3 PO; +IBUP80TA PO; +PRED20TA PO; +TIZA10TA PO; -TIZA4TAB4 PO
[2023-06-09] MEDS ORDERED: DULO1CAP6 (09:07)
[2023-06-09] MEDS ORDERED: ALBU6.7H6 INH (11:36)
[2023-06-09 11:45] VITALS: BP 136/63; TEMP 98.4; O2SAT 99
== END 2023-06-09 12:12 | disposition home or self-care (01) ==
LOC: M ED 08:57
DX: B34.0 Adenovirus infection, unspecified (principal); J45.909 Unspecified asthma, uncomplicated; M54.50 Low back pain, unspecified; Z98.84 Bariatric surgery status; Z79.52 Long term (current) use of systemic steroids; Z79.891 Long term (current) use of opiate analgesic; Z79.899 Other long term (current) drug therapy

== ENCOUNTER → 2023-10-03 | Outpatient (REF) | payer OTHER ==
[~2023-10-03] MED LIST changes: +ALBU6.7H6 INH; +DULO1CAP6; +ONDA-282 PO; -ONDA4TAB6 PO
[2023-10-03 17:36] LABS: IRON (FE) 46 UG/DL (50-170)
[2023-10-03 17:38] LABS: ALBUMIN 3.7 G/DL (3.2-5.2); ALKALINE PHOSPHATASE 65 U/L (46-116); ALT/SGPT 16 U/L (7.0-40); AST/SGOT 15 U/L (<34); BILIRUBIN,TOTAL 0.3 MG/DL (0.3-1.2); BLOOD UREA NITROGEN 14 MG/DL (9-23); CALCIUM LEVEL 8.6 MG/DL (8.5-10.1); CARBON DIOXIDE LEVEL 26 MMOL/L (20-31); CHLORIDE LEVEL 107 MMOL/L (98-107); CHOLESTEROL LEVEL 161 MG/DL (<200); CHOLESTEROL RISK RATIO 2.88 (<5); CREATININE FOR GFR 0.64 MG/DL (0.55-1.30); GLOMERULAR FILTRATION RATE > 60.0 (>60); GLUCOSE, FASTING 90 MG/DL (60-100); HDL CHOLESTEROL 55.9 MG/DL (>40); LDL CHOLESTEROL 87.7 MG/DL (<100); MAGNESIUM LEVEL 1.8 MG/DL (1.8-2.4); NON-HDL-C 105.1 MG/DL; POTASSIUM SERUM 4.1 MMOL/L (3.5-5.1); SODIUM LEVEL 140 MMOL/L (136-145); TOTAL PROTEIN 6.6 G/DL (5.7-8.2); TRIGLYCERIDES LEVEL 87 MG/DL (<150)
[2023-10-03 17:42] LABS: THYROID STIMULATING HORMONE 1.781 uIU/ML (0.55-4.78)
[2023-10-03 17:43] LABS: FREE T4 0.94 NG/DL (0.89-1.76)
[2023-10-03 17:48] LABS: FOLATE > 24.00 NG/ML (>5.4)
[2023-10-03 17:52] LABS: HEMOGLOBIN A1c 5.4 % (4.0-6.0)
[2023-10-03 18:00] LABS: HEMATOCRIT 40.6 % (36.0-47.0); HEMOGLOBIN 12.6 g/dl (12.0-15.5); MEAN CORPUSCULAR HEMOGLOBIN 25.8 pg (27.0-33.0); PLATELET COUNT, AUTOMATED 321 10^3/uL (150-450); RED BLOOD COUNT 4.89 10^6/uL (4.00-5.40); WHITE BLOOD COUNT 9.6 10^3/uL (4.0-10.0)
== END ==
LOC: M SFHCCLAY 11:58
PROVIDERS: ATTEND Family Medicine
DX: R60.9 Edema, unspecified (principal); Z98.84 Bariatric surgery status

== ENCOUNTER → 2023-12-07 | Outpatient (REF) | LOC: M EMP 16:07 | PROVIDERS: ATTEND Family Medicine | DX: Z11.52 Encounter for screening for COVID-19 (principal) ==

== ENCOUNTER → 2024-03-22 | Outpatient (REF) ==
[~2024-03-22] MED LIST changes: -CYCL5TAB PO; +CYCL5TAB4 PO
== END ==
LOC: M EMP 06:45
PROVIDERS: ATTEND Family Medicine
DX: Z11.52 Encounter for screening for COVID-19 (principal)

== ENCOUNTER → 2024-11-26 | Outpatient (CLI) | payer BC ==
[2024-11-26 18:07] LABS: BASO # 0.0 10^3/uL (0.0-0.2); BASO % 0.5 % (0.0-1.0); EOS # 0.3 10^3/uL (0.0-0.5); EOS % 3.3 % (0.0-3.0); LYMPH # 2.6 10^3/uL (1.5-5.0); LYMPH % 32.3 % (24.0-44.0); MONO # 0.5 10^3/uL (0.0-0.8); MONO % 6.2 % (2.0-8.0); NEUTROPHILS # 4.7 10^3/uL (1.5-8.5); NEUTROPHILS % 57.6 % (36.0-66.0); PLATELET COUNT, AUTOMATED 315 10^3/uL (150-450)
[2024-11-26 18:09] LABS: ALT/SGPT 19 U/L (7.0-40); AST/SGOT 23 U/L (<34); CALCIUM LEVEL 9.3 MG/DL (8.5-10.1); CARBON DIOXIDE LEVEL 25 MMOL/L (20-31); CHLORIDE LEVEL 105 MMOL/L (98-107); CHOLESTEROL LEVEL 206 MG/DL (<200); CHOLESTEROL RISK RATIO 2.93 (<5); CREATININE FOR GFR 0.72 MG/DL (0.55-1.30); GLOMERULAR FILTRATION RATE > 90.0 (>60); LDL CHOLESTEROL 110.3 MG/DL (<100); MAGNESIUM LEVEL 2.0 MG/DL (1.8-2.4); NON-HDL-C 135.9 MG/DL; POTASSIUM SERUM 4.7 MMOL/L (3.5-5.1); SODIUM LEVEL 141 MMOL/L (136-145); TRIGLYCERIDES LEVEL 128 MG/DL (<150)
[2024-11-26 18:11] LABS: VITAMIN B12 LEVEL 445 PG/ML (211-911)
[2024-11-26 18:49] LABS: ESTIMATED AVERAGE GLUCOSE 105.0 MG/DL (60-110)
== END ==
LOC: M CLY 10:44
PROVIDERS: ATTEND Family Medicine
DX: M54.2 Cervicalgia (principal)

== ENCOUNTER → 2025-03-04 | Outpatient (RCR) | LOC: M EMPSSV 02-06 08:41 | PROVIDERS: ATTEND Family Medicine | DX: Z20.828 Contact with and (suspected) exposure to other viral communicable diseases (principal) ==